=== PATIENT | female | born 1950 | race Caucasian/White ===

== ENCOUNTER 2018-02-19 10:30 | Outpatient (RCR) | payer MEDICARE, BC, SELFPAY ==
--- NOTE | 2018-01-22 13:55 | PTTR_ITS ---
DATE: 01/22/18 SUBJECTIVE: [place] states that going back to work went well, although she was pretty fatigued. She had to cancel Thursday's appointment because she was so tired from working the weekend. States she has been compliant with her HEP. OBJECTIVE: I test her left shoulder, wrist and forearm movements prior to mobilization. Begin with the left shoulder, starting with scapular jiggles, then working on rotation. Her external rotation is tight at 60 to begin with, but with rolling and gliding of the humeral head, etc., I can eventually get her to 90 but she is in the scaption plane. The same is true with internal rotation. Worked on forward elevation, which is not much more than 115 with end range discomfort suprahumerally. I then placed her in prone for rolling and gliding of the humeral head with the arm at a 90 and then hyper extension at +60 . Had her hold this isometrically. Then worked on anti gravity abduction, which she can do at about the 100 angle parallel to the floor, even though it is heavy and challenging, and then forward elevation AA. Had her place her arm on the plinth, and then actively primarily assist so she is at close to 140 to 145 angle. I then had her in the closed pack position for flexion, abduction and external rotation with her hands behind her head while stabilizing the proximal humerus. I then proceed to the forearm, working on forearm supination by mobilizing the distal radial ulnar joint, then pronation and accessory movements of the radial carpal joint while stabilizing the distal radius and stretching into flexion and extension. I upgraded her HEP to include some extension exercises with her hand on the table. I also stretched her IP joints into extension and then composite flexion. Manual therapy: ([id number]). Direct treatment time: 30 minutes Assessment: Doing well. Motion is coming along nicely. Will eventually add some strengthening exercises. Plan: Upgraded her HEP as described above. Also, issued a courtney to start using for her shoulder into abduction and flexion. She has a follow up appointment early next week. Jhonatan Acosta P.Apple. JACQUELINE/yousif
--- NOTE | 2018-01-29 10:18 | PTTR_ITS ---
DATE: 01/29/18 SUBJECTIVE: [place] continues to note improvement in her (L) hand and shoulder function, tolerated work much better last week as she is scheduled to go back again tomorrow. OBJECTIVE: Manual therapy: ([id number]). Active flexion is approximately 135-140* and she has been using her courtney daily. I begin with mobilizing her shoulder in the supine position by stretching the inferior and posterior capsules. I can get close to 90* of ER and IR. Flexion is around 135-140* and she has weakness when performing scapular protraction and retraction as well as circular movements in the supine position with her arm at shoulder at 90*. After mobilizing the supine position I have her perform some antigravity shoulder adduction and then in the side lying position ER and abduction. In the prone position hyperextension, abduction at 100* and then forward elevation. I then assist her with the maneuver and then she requires approximately 145*. I then have her in the loose pack position of flexion abduction and ER with her hands behind her head and have her pinch her blades together while I abducting her shoulder and apply a gentle posterior glide at the glenohumeral joint. I then mobilize her (L ) forearm and wrist and issue her a tennis ball for grasping activities along with upgrading her HEP to include scap stabilization exercises as described above including the lower trap. Direct treatment time: 45 minutes Total treatment time: 45 minutes she finishes the UBE for 5 minutes ASSESSMENT: Doing well, making some steady progress and she is a little over 10 weeks post op now. She still has some weakness lifting the weight of her arm against gravity some heavier movement into all planes to strengthen this more and then eventually we will get this to some resistive exercises. PLAN: Have [place] continue with HEP and upgrade the HEP for additional strengthening exercises and has a follow up early next week.
--- NOTE | 2018-02-02 09:00 | PTTR_ITS ---
DATE: 02/02/18 SUBJECTIVE: [place] states she has been non-compliant with her exercise program on the days that she works such as the weekends and the day after. Partially compliant the other days. OBJECTIVE: I test her movement patterns prior to mobilization. Her active flexion is around 115-120 degrees. I then mobilize her shoulder in supine position into rotation, then forward elevation, PNF 1 & 2 patterns, alternating isotonics, taking mild resistance and then in sidelying position anti-gravity ER , then ab/adduction. In supine position work on hyperextension, she can get well over 60 degrees, then hold it isometrically with mild lag. We also do some active movements in this range, abduction, then forward elevation with her arm resting on the table AA, then holding isometrically at end range. I then put her in close pack position of flexion/abduction,ER and work on scapular retraction as I glide the humeral head posteriorly, along the parallel position of the GH joint. I also have her do some scapular stabilization exercises with scapular retraction and inferior glides to lock in the lower traps. I incorporate this in the standing position for her posture. I then mobilize the distal, radial ulnar joints, the radial carpal joints using muscle energy techniques, light traction, and rolling/gliding of the joint surfaces in an appropriate manner. Manual therapy: ([id number]). Direct treatment time: 45 mins Total treatment time: 80 mins, completes a scap stab program in clinic via wellness A: Doing well. I would like to see her a little more compliant with her HEP. P: Have [place] exercise on a daily basis with her pulleys and anti-gravity strengthening. She has a follow up later in the week. DLW/dl
--- NOTE | 2018-02-05 09:00 | PTTR_ITS ---
DATE: 02/05/18 SUBJECTIVE: [place] states she is a little sore in her wrist and shoulder compared to the other day. She thinks it is result of the PT. She notes that she has still been compliant with her HEP. She is taking Ibuprofen tid OBJECTIVE: Manual therapy: ([id number]). I assess her wrist and forearm movements and she has close to full forearm supination/pronation with end range pain and reproduction of her wrist discomfort, this is not forced. When trying to do a distal radial, ulnar mobilization it is a little sore, so we back off on that. Then go to the wrist and her wrist flexion is at around 45 and with mobilization , I can get close to 60-70 degrees which causes some mild drawing through the dorsal aspect of the wrist. Does not simulate the symptoms that she has been complaining of. When working on her extension, we can get her close to 60-65 degrees, this causes a drawing throughout the volar aspect of the wrist, but again not the same symptoms she has been complaining of. Proceed to the shoulder and start with some scapular jiggles, then work on ER. I can get close to 90 degrees of ER as long as I keep her into scaption plane some so as the humeral head is parallel to the glenoid, then IR same at 90. Forward flexion though starts causing lateral proximal humeral discomfort, at around 110-120 degrees, this is not forced. I have her hold her arm overhead and make circular movements, it is choppy and weak compared to the R. After she performs these, we have her do some protraction, retraction with some light resistance. She handles this without pain. I then have her in sidelying position, she can externally rotate, and at end range she locks in her scapula into retracted position, then abduction and adduction is non-painful, although weak. In prone position, she does some dangling of the arm initially, then we work on stretching the anterior capsule with hyper extension, get close to 50 degrees. I have her try and hold it isometrically. She can only actively extend to around +15-20 degrees. I then work on shoulder abduction at 100 degrees, have her hold it isometrically with arm parallel to the floor. She then places her arm on the table with forehead resting on her R forearm and work on elevating AA , as she gets better at this I have her participate more actively. We finish in the close pack position of flexion'/abduction and ER and when she hits end range, I perform posterolateral glide which gives her some symptomatic relief. We also work on lower traps. She then performs her anti-gravity strengthening exercises in the prone, supine and sidelying position along with tennis ball tap , washing wall over head, etc. . . . to tolerate per flow sheet. Direct treatment time: 45 mins Total treatment time: 75 mins A: Doing well, ROM is coming along nicely. She is sore though from the last session and it is not unusual as she is gaining more motion; but because she has such good range at 11 weeks, I am going to cut her treatments down to once per week rather than 2x a week, give her a little more time to heal, especially now that she has relatively good functional range. P: Have [place] continue with her HEP, avoid heavy lifting, etc. . . Has a follow up in approximately 1 week. DLW/dl
--- NOTE | 2018-02-12 11:00 | PTTR_ITS ---
DATE: 02/12/18 SUBJECTIVE: [place] states she has had a good week. She notes steady gains in her function and pain. Manual therapy: ([id number]). Mobilize her shoulder in supine position starting with ER which eventually got to around 90 degrees, even though she is some limited in scaption plane, then IR and work on forward elevation, then PNF 1 and 2 patterns, alternating isotonics with emphasis on the lift component. I then work on shoulder adduction as she adducts across the midline, I apply some light traction and posterior humeral head glide which gives her some symptomatic relief. She is then able to place her L hand under her arm pit to simulate applying her deodorant, etc. . . which she has been a challenged for her. I then have her in sitting position and work on her forearm supination/ pronation, her pronation is full, supination is lacking about 10-15 degrees with end range drawing throughout the distal ulnar region. I do some rolling and gliding of the distal, radial ulnar joint and with MET's I eventually can get full supination. I then perform some PA glides to the radial carpal joint. She does have some joint play, then I work on her flexion and prolonged stretch, then following into extension, stretch IP joints, not only into extension, but into flexion, she has hypomobility at the DIPs which she states was present prior to her fracture. Direct treatment time: 30 mins Total treatment time: 30 mins and then seen by Saima Arrieta PTA and started on Therex (see her flow sheet). Has a follow up with me next week. She will now start some strengthening with her HEP that was issued to her by Saima Garcia PTA DLW/doyle
--- NOTE | 2018-02-12 13:19 | PTTR_ITS ---
DATE: 02/12/18 OBJECTIVE: Co-treatment with primary therapist, Jhonatan Acosta PT. Please see his note for specifics. Therapeutic procedures ([id number]). * [X] See flow sheet: Patient completed an UE strengthening and scapular stabilization program, as per flow sheet. Patient performed rows, shoulder extension, IR/ER with tubing, bicep curls, tricep kickbacks, and scapular retraction with foam and tubing for ER, followed by UBE cycling. * [X] Provided skilled instruction in proper exercise performance. * [X] Provided skilled manual cues to facilitate proper muscle recruitment and/or movement pattern. Direct treatment time: 20 minutes Total treatment time: 25 minutes
--- NOTE | 2018-02-19 13:41 | PTTR_ITS ---
DATE: 02/19/18 SUBJECTIVE: No new complaints offered. Feels that she is making weekly gains.She is now able to work her regular schedule without being fatigued. She is still careful about lifting and pulling, but is participating more with pt care. OBJECTIVE: Manual therapy: ([id number]).I begin with mobilizing her forearm and then wrist using rolling and gliding techniques to the distal radial ulnar joint with supination and pronation. I can get close to full range when she is mobilized. She has some end range drawing, though, throughout the ulnar aspect of the wrist , and then PA glides to the radial carpal joints, and then stretching into flexion and extension and I can get close to 60 degrees when it is completed. I then proceed to the shoulder and her shoulder flexion is not much more than 120- 30 with scapular substitution. I start with scapular jiggles and then stretch the inferior and posterior capsules and I work on ER and IR. She starts off at around 6 0degrees of ER, but then I can eventually get to 60 with rolling and gliding of the humeral head and METs; same with IR. I perform some PNF 1 and 2 patterns alternating isotonics with light to moderate resistance to tolerance. In the prone position I have her rest her forehead on her R forearm with her L arm resting on the table and work on end range flexion maneuvers, AA initially and then have her hold it isometrically; she has about a 15 degree flexion lag. I then put her in the closed pack position of flexion/abduction and ER and work on active and then AA abduction and ER and have her try to hold it isometrically. She is then seen by Saima Garcia PTA for her therapeutic exercises. We upgraded her home program and issue some tubing for strengthening exercises for elbow flexors and extensors, as well as her shoulder girdle. She has a follow-up appt earlier next week with JORJE Carter. Direct treatment time: 30 min Total treatment time: 30 min RONALDOW/prosper
--- NOTE | 2018-02-19 14:01 | PTTR_ITS ---
DATE: 02/19/18 OBJECTIVE: Co-treatment with primary therapist, Jhonatan Acosta PT. Please see his note for specifics. Therapeutic procedures ([id number]). * [X] HEP review: Patient was issued a HEP for scapular stabilization and shoulder strengthening. HEP was reviewed and performed. Patient was issued orange Theraband tubing for HEP completion. * [X] See flow sheet: Patient completed a scapular stabilization and shoulder strengthening program, as per flow sheet. Patient tolerated a progression in her program, see flow sheet for modifications made to reps, times , and resistance. Patient completed UBE cycling x10 minutes, at no charge. * [X] Provided skilled instruction in proper exercise performance. * [X] Provided skilled manual cues to facilitate proper muscle recruitment and/or movement pattern. Direct treatment time: 20 minutes Total treatment time: 30 minutes
== END 2018-02-19 23:59 | disposition home or self-care (01) ==
LOC: PT 10:30
PROVIDERS: PCP Family Medicine; Referring Provider Orthopaedic Surgery; Visit Provider Orthopaedic Surgery
DX: S42.215D Unspecified nondisplaced fracture of surgical neck of left humerus, subsequent encounter for fracture with routine healing (principal); S52.502D Unspecified fracture of the lower end of left radius, subsequent encounter for closed fracture with routine healing; S52.602D Unspecified fracture of lower end of left ulna, subsequent encounter for closed fracture with routine healing
CPT/HCPCS: 97110; 97140

== ENCOUNTER → 2018-03-02 10:32 | Outpatient (BNVA) | payer MEDICARE, BC, SELFPAY | PROVIDERS: PCP Family Medicine; Visit Provider Orthopaedic Surgery | DX: S42.212D Unspecified displaced fracture of surgical neck of left humerus, subsequent encounter for fracture with routine healing; S52.502D Unspecified fracture of the lower end of left radius, subsequent encounter for closed fracture with routine healing; S52.602D Unspecified fracture of lower end of left ulna, subsequent encounter for closed fracture with routine healing | CPT/HCPCS: 99213 ==

== ENCOUNTER 2018-03-11 00:06 | Outpatient (CLI) | payer MEDICARE, BC, SELFPAY ==
--- NOTE | 2018-03-11 13:31 | DI.MAMMO_ITS ---
SYMPTOMS/DIAGNOSIS: SCREENING, Z12.31 MAMMOGRAMS: Mammograms were interpreted according to the usual protocol including computer analysis with CAD system, tomosynthesis and C view imaging. The breast tissue is heterogeneously radiodense, which lowers the sensitivity of the study. There is no dominant mass. There are no suspicious calcifications and there has been no significant interval change when compared with prior images. SUMMARY: No evidence of malignancy, category 1. Yearly screening mammography is recommended. Breast density category C. MQSA ASSESSMENT OF FINDINGS: Negative. Category 1. Patient will receive a letter notifying them of these results. Bi-RADS category C. The breasts are heterogeneously dense, which may obscure small masses.
== END 2018-03-11 00:26 ==
PROVIDERS: PCP Family Medicine; Visit Provider Family Medicine
DX: Z12.31 Encounter for screening mammogram for malignant neoplasm of breast (principal)
CPT/HCPCS: 77063; 77067

== ENCOUNTER 2019-02-03 12:19 | Outpatient (CLI) | payer MEDICARE, BC, SELFPAY ==
[2019-02-03 14:02] LABS: ALT 22 U/L (12-78); AST 22 U/L (15-37); Albumin 3.9 g/dL (3.4-5.0); Alkaline Phosphatase 80 U/L (46-116); Anion Gap 9.6 mmol/L (3-11); BUN 14 mg/dL (7-18); Bilirubin, Total 0.4 mg/dL (0.2-1.0); CO2 29.4 mmol/L (21.0-32.0); CREATININE 0.88 mg/dL (0.55-1.02); Calcium 8.6 mg/dL (8.5-10.1); Calculated LDL 145 mg/dL; Chloride 103 mmol/L (98-107); Cholesterol 244 mg/dL (50-200); Glucose 100 mg/dL (70-100); HDL Cholesterol 51 mg/dL (40-60); Potassium 4.6 mmol/L (3.5-5.1); Sodium 142 mmol/L (136-145); TSH (W/Ref FT4) 2.43 uIU/mL (0.36-3.74); Total Protein 6.9 g/dL (6.4-8.2); Triglyceride 244 mg/dL (30-150)
[2019-02-03 14:49] LABS: HCT 41.7 % (36.0-46.0); HGB 13.2 g/dL (12.0-15.5); Mean Corp. HGB Concentration 31.7 g/dL (32.0-36.0); Mean Corpuscular Hemoglobin 31.2 pg (27.0-33.0); Mean Corpuscular Volume 98.6 fL (80-95); Mean Platelet Volume 9.5 fL (8.0-11.0); Platelet Count 285 x1000/uL (130-400); RBC 4.23 m/cumm (4.00-5.20); RBC Distribution Width 13.9 % (11.7-14.6); White Blood Cell Count 4.62 k/cumm (4.4-10.8)
== END 2019-02-03 12:39 ==
PROVIDERS: PCP Family Medicine; Visit Provider Family Medicine
DX: E78.2 Mixed hyperlipidemia (principal); E03.9 Hypothyroidism, unspecified
CPT/HCPCS: 36415; 80053; 80061; 83721; 85027; 84443

== ENCOUNTER 2020-03-16 04:02 | Outpatient (CLI) | payer MEDICARE, BC, SELFPAY ==
--- NOTE | 2020-03-16 | DI.MAMMO_ITS ---
EXAM: MAMMO SCREENING CLINICAL HISTORY: SCREENING,Z12.31,FAMILY H/O BREAST CA TECHNIQUE: Mammograms were interpreted according to the usual protocol including computer analysis w [facility] CAD system, tomosynthesis and C-view imaging. COMPARISON: 2010 through 2018 FINDINGS: The breasts are composed of scattered fibroglandular densities, Breast Density category B. No suspicious masses or suspicious microcalcifications are seen. No skin thickening or abnormal axillary lymph nodes are seen. There has been no significant change from prior exams. IMPRESSION: BI-RADS Category 1, Negative mammogram Yearly screening mammography is recommended. Breast Density - Category B, scattered fibroglandular densities. A negative radiographic report should not delay biopsy if a dominant or clinically suspicious mass is present. Up to ten percent of cancers are not identified on mammography. A negative report may reinforce clinical impression. Adenosis and dense breasts may obscure an underlying neoplasm. False positive reports average 6 to 10%. Patient will receive a letter notifying them of these results.
== END 2020-03-16 04:22 ==
PROVIDERS: PCP Family Medicine; Visit Provider Family Medicine
DX: Z12.31 Encounter for screening mammogram for malignant neoplasm of breast (principal); Z80.3 Family history of malignant neoplasm of breast
CPT/HCPCS: 77063; 77067

== ENCOUNTER 2020-05-08 01:50 | Outpatient (CLI) | payer MEDICARE, BC, SELFPAY ==
[2020-05-08 10:28] LABS: Absolute Basophil Count 0.02 10^3/uL (0.0-0.2); Absolute Eosinophil Count 0.27 10^3/uL (0.0-0.7); Absolute Lymphocyte Count 0.96 10^3/uL (1.2-3.4); Absolute Monocyte Count 0.27 10^3/uL (0.1-0.8); Absolute Neutrophil Count 1.32 10^3/uL (1.2-6.7); Basophils % 0.7; Eosinophils % 9.5; HCT 36.2 % (36.0-46.0); HGB 11.6 g/dL (11.2-15.7); Lymphocytes % 33.8; MCH 31.5 pg (27.0-33.0); MCV 98.4 fL (80-95); MPV 8.9 fL (8.0-11.0); Monocytes % 9.5; Neutrophils % 46.5; Nucleated RBC 0 %; Platelet Count 252 10^3/uL (130-400); RBC 3.68 10^6/uL (3.93-5.22); RDW 13.5 % (11.7-14.6); RDW-SD 48.4 fL; WBC 2.84 10^3/uL (4.4-10.8)
[2020-05-08 11:48] LABS: ALT 20 U/L (14-59); AST 17 U/L (15-37); Albumin 3.8 g/dL (3.4-5.0); Alkaline Phosphatase 71 U/L (46-116); Anion Gap 7.3 mmol/L (3-11); BUN 11 mg/dL (7-18); Bilirubin, Total 0.3 mg/dL (0.2-1.0); CO2 29.7 mmol/L (21.0-32.0); Calcium 8.6 mg/dL (8.5-10.1); Calculated LDL 119 mg/dL (<100); Chloride 106 mmol/L (98-107); Cholesterol 231 mg/dL (<200); Glucose 91 mg/dL (74-106); HDL Cholesterol 51 mg/dL (40-60); Potassium 4.3 mmol/L (3.5-5.1); Sodium 143 mmol/L (136-145); TSH 1.54 uIU/mL (0.36-3.74); Total Protein 6.6 g/dL (6.4-8.2); Triglyceride 307 mg/dL (<150); Vitamin B12 907 pg/mL (193-986)
[2020-05-08 12:05] LABS: FREE T4 0.92 ng/dL (0.76-1.46)
== END 2020-05-08 02:10 ==
PROVIDERS: PCP Family Medicine; Visit Provider Family Medicine
DX: E03.9 Hypothyroidism, unspecified (principal); E78.2 Mixed hyperlipidemia; E53.8 Deficiency of other specified B group vitamins
CPT/HCPCS: 36415; 80053; 80061; 82607; 84439; 84443; 85025

== ENCOUNTER 2020-11-16 02:08 | Outpatient (CLI) | payer MEDICARE, BC, SELFPAY ==
[2020-11-16 12:22] LABS: Calculated LDL 186 mg/dL (<100); Cholesterol 291 mg/dL (<200); HDL Cholesterol 63 mg/dL (40-60); Triglyceride 210 mg/dL (<150)
== END 2020-11-16 02:09 | disposition home or self-care (01) ==
LOC: LBO 02:08
PROVIDERS: PCP Family Medicine; Visit Provider Family Medicine
DX: E78.2 Mixed hyperlipidemia (principal)
CPT/HCPCS: 36415; 80061

== ENCOUNTER 2021-03-01 10:09 | Outpatient (REF) | payer MEDICARE, BC, SELFPAY ==
[2021-03-01 15:08] LABS: ALT 24 U/L (14-59); AST 17 U/L (15-37); Albumin 4.2 g/dL (3.4-5.0); Alkaline Phosphatase 83 U/L (46-116); Anion Gap 8.4 mmol/L (3-11); BUN 13 mg/dL (7-18); Bilirubin, Total 0.4 mg/dL (0.2-1.0); CO2 29.6 mmol/L (21.0-32.0); CREATININE 0.9 mg/dL (0.55-1.02); Calcium 9.1 mg/dL (8.5-10.1); Calculated LDL 88 mg/dL (<100); Chloride 105 mmol/L (98-107); Cholesterol 181 mg/dL (<200); Glucose 99 mg/dL (74-106); HDL Cholesterol 67 mg/dL (40-60); Potassium 5.7 mmol/L (3.5-5.1); Sodium 143 mmol/L (136-145); TSH (W/Ref FT4) 1.88 uIU/mL (0.36-3.74); Total Protein 6.9 g/dL (6.4-8.2); Triglyceride 132 mg/dL (<150)
== END 2021-03-01 10:10 | disposition home or self-care (01) ==
LOC: NCHCN 10:09
PROVIDERS: PCP Family Medicine; Visit Provider Family Medicine
DX: E78.2 Mixed hyperlipidemia (principal); E03.9 Hypothyroidism, unspecified; E55.9 Vitamin D deficiency, unspecified; Z00.00 Encounter for general adult medical examination without abnormal findings
CPT/HCPCS: 80053; 80061; 82306; 84443

== ENCOUNTER 2021-04-08 01:59 | Outpatient (CLI) | payer MEDICARE, BC, SELFPAY ==
--- NOTE | 2021-04-08 | DI.MAMMO_ITS ---
Exam(s) MAMMO SCREENING EXAM: MAMMO SCREENING CLINICAL HISTORY: SCREENING, Z12.31. TECHNIQUE: Bilateral full field digital CC and MLO mammographic images were obtained with 3D tomosyn thesis and utilizing computer aided detection (CAD). COMPARISON: Prior mammograms dating back to 2011, the most recent being February 2020. FINDINGS: There has been no significant change in the appearance and distribution of the fibroglandular tissue. No new significant radiographic findings in the right breast. In the left breast on 3D cc imaging there is a 5 x 5 millimeter asymmetric density located 6 cm in fr om the nipple, slightly lateral of center and below the midline. Not seen on prior mammograms. Ther e are no malignant-appearing microcalcification groups in this region or elsewhere in either breast. There is no significant architectural distortion nor skin thickening-retraction. IMPRESSION: No radiographic evidence of malignancy in the right breast. Asymmetric left breast density-possible nodule. Spot compression cc view and possible ultrasound rec ommended. BI-RADS Category 0 - Assessment Incomplete: Need additional imaging evaluation Breast Density - Category B - Scattered areas of fibroglandular density Breast density Category C or D implies that the patient has dense breast tissue. Dense breast tissue can make it harder to find cancer on a mammogram. Dense breast tissue is also associated with an incr eased risk of breast cancer. This information about the result of the mammogram report was provided to the patient to raise their awareness. Use this report when you speak with the patient about their risks for breast cancer, which includes their family history. At that time, you may recommend additional screening tests (Ultrasoun d or MRI) as these tests may add significant information. A negative radiographic report should not delay biopsy if a dominant or clinically suspicious mass is present. Up to ten percent of cancers are not identified on mammography. A negative report may reinforce clinical impression. Adenosis and dense breasts may obscure an underlying neoplasm. False positive reports average 6 to 10%. Patient will receive a letter notifying them of these results.
== END 2021-04-08 02:19 ==
PROVIDERS: PCP Family Medicine; Visit Provider Family Medicine
DX: Z12.31 Encounter for screening mammogram for malignant neoplasm of breast (principal); R92.8 Other abnormal and inconclusive findings on diagnostic imaging of breast
CPT/HCPCS: 77063; 77067

== ENCOUNTER 2021-04-19 00:29 | Outpatient (CLI) | payer MEDICARE, BC, SELFPAY ==
--- NOTE | 2021-04-19 | DI.MAMMO_ITS ---
Exam(s) MG MAMMO SCREEN CALL BACK UNI US BREAST LT LIMITED EXAM: US BREAST LT LIMITED CLINICAL HISTORY: ? LT BREAST NODULE TECHNIQUE: Ultrasound performed using standard protocol. COMPARISON: No exams were available for comparison FINDINGS: Additional mammographic views of the left breast and left breast ultrasound are interpreted in conjun ction. These examinations were obtained to evaluate questionable small breast nodule identified on r ecent mammogram. Additional mammographic views fail to show a discrete mass. Breast ultrasound show s no evidence of mass or cyst. IMPRESSION: No specific evidence of malignancy at this time. Follow-up unilateral left breast mammogram recommen ded in 6 months. BI-RADS Cat 3 - 6 month - Probably Benign Finding: Recommend follow-up imaging in 6 months Breast Density - Category B - Scattered areas of fibroglandular density DATA REPOSITORY:
== END 2021-04-19 00:49 ==
PROVIDERS: PCP Family Medicine; Visit Provider Family Medicine
DX: R92.8 Other abnormal and inconclusive findings on diagnostic imaging of breast (principal)
CPT/HCPCS: 76642; 77063; 77067

== ENCOUNTER 2021-10-18 00:59 | Outpatient (CLI) | payer MEDICARE, BC, SELFPAY ==
--- NOTE | 2021-10-18 | DI.MAMMO_ITS ---
Exam(s) MG MAMMO DIAGNOSTIC UNI EXAM: MG MAMMO DIAGNOSTIC UNI CLINICAL HISTORY: 6 MO F/U, F/U TO [facility]NL MAMMO, R92.8. TECHNIQUE: Craniocaudal and mediolateral oblique Full Field Digital Mammography views of the left br east with Computer Aided Diagnosis followed by Tomosynthesis. COMPARISON: MG MG MAMMOGRAPHY BILATERAL SCREENING from 01/23/2015 MG MG MAMMOGRAPHY BILATERAL SCREENING from 02/28/2016 MG MG MAMMOGRAPHY BILATERAL SCREENING from 03/10/2017 MG MG mammo screening from 03/11/2018 MG MG MAMMO SCREENING from 03/16/2020 MG MG MAMMO SCREENING from 04/08/2021 MG MG MAMMO SCREEN CALL BACK UNI from 04/19/2021 FINDINGS: Mammography/Tomosynthesis: Masses/Architectural Distortion: None seen. Previously noted nodule no longer present. Microcalcifictions: No suspicious pleomorphic-type are seen. Skin Thickening/Nipple Retraction: None. IMPRESSION: 1. No evidence of malignancy is noted. 2. Unless there is more urgent need, follow-up screening mammography is recommended, as per [place] [employer] guidelines. BI-RADS Category 1 - Negative Breast Density - Category B - Scattered areas of fibroglandular density A negative radiographic report should not delay biopsy if a dominant or clinically suspicious mass is present. Up to ten percent of cancers are not identified on mammography. A negative report may reinforce clinical impression. Adenosis and dense breasts may obscure an underlying neoplasm. False positive reports average 6 to 10%. Patient will receive a letter notifying them of these results.
== END 2021-10-18 01:19 ==
PROVIDERS: PCP Family Medicine; Visit Provider Family Medicine
DX: R92.8 Other abnormal and inconclusive findings on diagnostic imaging of breast (principal); N64.59 Other signs and symptoms in breast
CPT/HCPCS: 77061; 77065; G0279

== ENCOUNTER 2021-11-19 07:05 | Emergency (ER) | payer MEDICARE, BC, SELFPAY ==
[2021-11-19 07:09] VITALS: BP 118/65; PULSE 88; RESP 18; TEMP 36.7; O2SAT 93
--- NOTE | 2021-11-19 08:15 | DI.RAD_ITS ---
Exam(s) XR HIP RT COMPLETE AP PELVIS EXAM: XR HIP RT COMPLETE AP PELVIS CLINICAL HISTORY: Fall, Coccyx pain. TECHNIQUE: 2D digital imaging was performed. COMPARISON: No exams were available for comparison FINDINGS: There is no evidence of pelvic nor hip fracture. Mild degenerative changes noted in the right hip. Sacroiliac joints appear unremarkable. No obvious sacral fracture IMPRESSION: No fractures evident. I note that the requisition states that there has been fall with coccyx pain. If clinically indicated dedicated sacral-coccyx views can be performed. DATA REPOSITORY: RADIATION DOSE DELIVERED:
--- NOTE | 2021-11-19 08:22 | ED.GENADUL_ITS ---
Discharge Plan Disposition Patient Disposition: HOME Condition: Stable Discharge Details Clinical Impression: Fall, Lumbago Primary Care Provider: Courtney Pandya ED Provider: Consuelo Mosquera Home Meds and New Rx's Prescriptions: New cyclobenzaprine 10 mg tablet 10 mg PO TID PRN (Reason: muscle spasm) Qty: 7 0RF Continued cyanocobalamin (vitamin B-12) [Vitamin B-12] 1,000 MCG tablet 1,000 mcg PO DAILY acetaminophen [Tylenol Extra Strength] 500 MG tablet 2 tab PO PRN gabapentin 300 MG capsule 3 cap PO QHS magnesium 250 MG tablet 250 mg PO DAILY Label Comments: 11/09/15 Pt states she takes PRN. PG Rx Instructions: H/ simvastatin 10 MG tablet 10 mg PO QPM Qty: 90 levothyroxine 50 MCG tablet 50 mcg PO DAILY Qty: 90 ibuprofen 400 MG tablet 400 mg PO TID aspirin [Aspirin Low Dose] 81 mg tablet,delayed release (DR/EC) 1 tab PO DAILY Label Comments: 1 tablet once a day rosuvastatin 10 mg tablet 10 mg PO DAILY Label Comments: TAKE ONE TABLET BY MOUTH EVERY DAY No Action duloxetine [Cymbalta] 60 MG capsule,delayed release(DR/EC) 50 mg PO DAILY Label Comments: 11/09/15 20 mg daily. Rx Instructions: [facility] SILVER TABLET 1 EACH tablet 1 ea PO DAILY calcium carbonate-vitamin D3 1 EACH tablet 2 tab PO DAILY meloxicam 15 MG tablet 15 mg PO DAILY Qty: 90 Label Comments: 11/09/15 Pt states she no longer takes medication. PG Rx Instructions: for joint pain instead of Ibuprofen clonazepam 1 MG tablet 1 mg PO HS Qty: 30 ergocalciferol (vitamin D2) [Vitamin D2] 50,000 UNIT capsule 50 mcg PO DAILY Qty: 12 tapentadol [Nucynta] 50 MG tablet 1 tab PO QID oxycodone-acetaminophen 1 EACH tablet 1 ea PO Q6H PRN (Reason: Severe Pain) Qty: 12 0RF naloxone [Narcan] 4 MG spray,non-aerosol 4 mg NS DIRECTED Qty: 2 0RF Rx Instructions: One spray (4mg) intranasally into one nostril. Use a new nasal spray for subsequent dose in alternate nostril if needed. May repeat once after initial dose in 2-3 minutes. tramadol 100 mg tablet 400 mg PO DAILY Label Comments: TAKE ONE TABLET BY MOUTH FOUR TIMES A DAY Discharge Instructions Instructions: Low Back Strain (ED), Fall Prevention (ED) Additional Instructions: Rest, ice, elevation. Alternate ice and heat. Be careful taking the muscle relaxers. Follow up with primary care provider in 3-5 days. Return to ED sooner if any worsening or concerns. Increase oral fluids. Please take Tylenol or Ibuprofen with food every 4-6 hours as needed for pain and swelling. X-rays show no acute fractures of your hip and pelvis. Referrals: Courtney Pandya [Primary Care Provider] - 5 days Discharge Data Discharge Date/Time-TO BE ENTERED AT DEPARTURE: 11/19/21 09:38 Medical Decision Making 71-year-old female presents to the ER with a mechanical fall with chief complaint of right lower lumbar pain and right paraspinous tenderness. She reports having difficulty walking since the fall. X-ray pelvis and hip ordered, 5 mg Valium. X-ray right hip pelvis shows no evidence of pelvic or hip fracture there is mild degenerative changes noted in the right hip. Sacroiliac joints appear unremarkable. 2127: Patient reevaluation, discussed home care with patient. She is not having any specific coccyx tenderness with palpation no crepitus. I did discuss the x- ray results with her she verbalized understanding. She is requesting a tablet for the x-ray at home. We will give her some Flexeril discussed strict return instructions. Patient made hemodynamically stable throughout entire stay discussed strict return instructions and follow-up care verbalized understanding. Medical Records Medical records reviewed: Yes I reviewed the patient's medical records. HPI General Mode of arrival: wheelchair . Date/Time Provider Initiated Documentation: 11/19/21 07:36 . Limitations to Documentation: no limitations . Information obtained by: patient, RN notes reviewed and old records reviewed . HPI Narrative: 71-year-old female presents to the ER with a chief complaint of right lower lumbar pain and posterior hip pain after a mechanical fall last night around 10:00. Patient states that she was in the bathroom slipped and fell landing on her bottom. She denies hitting her head no loss of consciousness denies any neck pain. Denies any loss of bowel or bladder control. Denies any radiation of pain. She did take a tramadol, Tylenol this morning with little to no relief. She reports being unable to put any weight on the area since then. She has a past medical history of frequent falls, surgical history includes hysterectomy, bunionectomy, blepharoplasty, high cholesterol, hypothyroidism, depression. She does take a daily aspirin. Related Data Home Medications Medication Instructions Recorded Confirmed Centrum Silver Tablet 1 ea PO DAILY 09/25/12 12/06/15 acetaminophen 500 mg tablet 2 tab PO PRN 09/25/12 11/19/21 (Tylenol Extra Strength) cyanocobalamin (vitamin B-12) 1,000 mcg PO DAILY 09/25/12 11/19/21 1,000 mcg tablet (Vitamin B-12) duloxetine 60 mg capsule,delayed 50 mg PO DAILY 09/25/12 11/19/21 release (Cymbalta) gabapentin 300 mg capsule 3 cap PO QHS 09/25/12 11/19/21 magnesium 250 mg tablet 250 mg PO DAILY 09/25/12 11/15/15 calcium carbonate 600 mg-vitamin 2 tab PO DAILY 09/28/12 11/19/21 D3 5 mcg (200 unit) tablet levothyroxine 50 mcg tablet 50 mcg PO DAILY #90 tab-caps 11/07/14 11/19/21 simvastatin 10 mg tablet 10 mg PO QPM #90 tabs 11/07/14 clonazepam 1 mg tablet 1 mg PO HS #30 tabs 07/09/15 11/19/21 meloxicam 15 mg tablet 15 mg PO DAILY #90 tab-caps 07/09/15 ergocalciferol (vitamin D2) 1,250 50 mcg PO DAILY #12 tab-caps 07/10/15 11/19/21 mcg (50,000 unit) capsule (Vitamin D2) ibuprofen 400 mg tablet 400 mg PO TID 11/09/15 11/19/21 tapentadol 50 mg tablet (Nucynta) 1 tab PO QID 11/09/15 12/06/15 naloxone 4 mg/actuation nasal 4 mg NS DIRECTED #2 sprays 11/18/17 11/19/21 spray (Narcan) oxycodone-acetaminophen 5 mg-325 1 ea PO Q6H PRN Severe Pain ##12 11/18/17 mg tablet aspirin 81 mg tablet,delayed 1 tab PO DAILY 11/19/21 11/19/21 release (Aspirin Low Dose) cyclobenzaprine 10 mg tablet 10 mg PO TID PRN muscle spasm #7 11/19/21 tabs rosuvastatin 10 mg tablet 10 mg PO DAILY 11/19/21 11/19/21 tramadol 100 mg tablet 400 mg PO DAILY 11/19/21 11/19/21 Previous Rx's Medication Instructions Recorded naloxone 4 mg/actuation nasal 4 mg NS DIRECTED #2 sprays 11/18/17 spray (Narcan) oxycodone-acetaminophen 5 mg-325 1 ea PO Q6H PRN Severe Pain ##12 11/18/17 mg tablet cyclobenzaprine 10 mg tablet 10 mg PO TID PRN muscle spasm #7 11/19/21 tabs Allergies Allergy/AdvReac Type Severity Reaction Status Date / Time atorvastatin AdvReac Severe LEG CRAMPS Unverified 11/19/21 07:12 General Stated Complaint: Nk/Back Pain MIO: 4 Review of Systems All systems reviewed & are unremarkable except as noted in HPI and below ENT Ears, Nose, Mouth, and Throat: Denies neck pain Musculoskeletal Musculoskeletal: Reports as per HPI, Reports back pain, Denies deformity, Denies loss of height, Denies neck pain and Reports stiffness PFSH All Active Problems (Updated 11/19/21 @ 09:31 by Consuelo Mosquera) Earache on left (Acute) Fall (Acute) Lumbago (Acute) Surgical History Blepharorrhapy Bunionectomy Hysterectomy, Laproscopic (~1993) Fibroids Family History Mother Personal history of malignant neoplasm Breast Father Essential hypertension Stroke Brother Diabetes Grandfather Stroke Grandfather Personal history of malignant neoplasm Grandmother Personal history of malignant neoplasm Breast Grandmother Personal history of malignant neoplasm Bladder Brother No problems noted. Social History Smoking/Tobacco Use Status: Former Tobacco Use Smoking risk assessment performed?: Yes Alcohol Intake: never Drug use: Occasionally Substance use type: marijuana Do you feel safe at home: Yes Do you feel safe in your relationship?: Yes Exam Narrative Exam Narrative: Constitutional: Alert and oriented x3. Appears stated age. Normal body habitus. Head: Normocephalic, no trauma. Eyes: Pupils PERRL, EOM's intact. Eyelids symmetrical without lesions, discharge, or swelling. Chest: RRR, Normal S1, S2, distal pulses intact. Resp: Lungs clear to auscultation bilaterally, no wheezes, rales, or rhonchi. Abdomen: Soft, non-distended, Normoactive bowel sounds all 4 quads. Musculoskeletal: No midline C-spine, T-spine tenderness she does have some sacral midline tenderness noted and some right-sided paraspinous tenderness with palpation. Iliac crest bilaterally and pelvis appear stable with palpation. Skin: No suspicious rashes or lesions. Capillary refill less than 2 sec. Neurologic: Cranial nerves II-XII intact. Alert and oriented x 3. Motor: No deficits noted. Sensory: Intact bilaterally all 4 extremities. Reflexes: DTR's intact bilaterally.. Hematologic/Lymphatic: No ecchymosis, no lymphadenopathy. Course Vital Signs Vital signs: Vital Signs Temperature 36.7 C 11/19/21 07:09 Pulse 88 11/19/21 07:09 Respiratory Rate 18 11/19/21 07:09 Blood Pressure 118/65 11/19/21 07:09 Pulse Oximetry 93 11/19/21 07:09 Temperature 36.7 C 11/19/21 07:09 Temperature Source Temporal Artery Scan 11/19/21 07:09 Pulse 88 11/19/21 07:09 Respiratory Rate 18 11/19/21 07:09 Respiratory Effort Non-Labored 11/19/21 07:20 Blood Pressure 118/65 11/19/21 07:09 Blood Pressure Position Sitting 11/19/21 07:09 Pulse Oximetry 93 11/19/21 07:09 Oxygen Delivery Method Room Air 11/19/21 07:09 Oxygen Flow Rate 0 11/19/21 07:09
[2021-11-19] MEDS: diazePAM 10 MG/2 ML SYR 5 MG IM (08:30)
[2021-11-19] MEDS: HYDROcodone 5/Acetaminophen 325 TAB PO (09:34)
[2021-11-19 09:38] VITALS: BP 130/78; PULSE 72; RESP 16; TEMP 36.4; O2SAT 91
== END 2021-11-19 09:38 | disposition home or self-care (01) ==
PROVIDERS: Emergency Provider Registered Nurse Emergency; PCP Family Medicine
DX: M54.50 Low back pain, unspecified (principal); S39.82XA Other specified injuries of lower back, initial encounter; W18.39XA Other fall on same level, initial encounter
CPT/HCPCS: 96372; 99284; 73502; 99283; J3360

== ENCOUNTER → 2022-01-24 00:36 | Outpatient (CLI) | payer MEDICARE, BC, SELFPAY ==
--- NOTE | 2022-01-24 | DI.MRI_ITS ---
Exam(s) MR LUMBAR SPINE WO EXAM: MR LUMBAR SPINE WO CLINICAL HISTORY: CHRONIC BACK PAIN M54.9. TECHNIQUE: Multiplanar multisequence MRI of the Lumbar spine was performed. COMPARISON: MR MRI - LUMBAR SPINE WO CONTRAST from 02/07/2015 FINDINGS: Bones: The last intervertebral disc space is designated the L5/S1 level for the numbering purpose of this examination. There is a compression fracture deformity of L1. There is loss of approximately 30 percent of the height of the vertebral body. There is retropulsion into the central spinal canal. There is minimal narrowing of the spinal canal. The AP diameter is 15 mm. The fracture appears lozano bacute. Please correlate with patient's clinical history. Alignment is satisfactory. The signal otis racteristics are unremarkable. Cord: The conus tip ends at the L1 level. It is of normal size and signal intensity. T12-L1: No disc herniations or bulges are present. No central spinal canal or neural foraminal stenos is. L1-2: No disc herniations or bulges are present. No central spinal canal or neural foraminal stenosis . L2-3: No disc herniations or bulges are present. No central spinal canal or neural foraminal stenosis . L3-4: There is a mild diffuse disc bulge. No significant central spinal canal stenosis. Minimal junie rowing of the neural foramen is seen bilaterally. L4-5: Mild degenerative changes are seen at the facets. There is a mild diffuse disc bulge. No sign ificant central spinal canal stenosis is present. There is mild bilateral neural foraminal narrowing . L5-S1: No disc herniations or bulges are present. No central spinal canal or neural foraminal stenosi s. Soft tissues: The visualized SI joints and sacrum are well maintained. The paraspinal soft tissues ar e unremarkable. Visualized abdominal organs: Simple right renal cyst. No follow-up is recommended. IMPRESSION: 1. L1 compression fracture with loss of approximately 30 percent of the height of the vertebral body. This was not present on the examination from 2014. There is mild retropulsion into the spinal paulo l but no significant central spinal canal stenosis results. Please correlate with the patient's clin ical history. 2. Multilevel degenerative changes in the lumbar spine. No significant central spinal canal stenosis is seen. Minimal neural foraminal narrowing is seen at multiple levels as described above. DATA REPOSITORY:
== END ==
PROVIDERS: PCP Family Medicine; Visit Provider Family Medicine
DX: M51.36 Other intervertebral disc degeneration, lumbar region (principal); S32.010A Wedge compression fracture of first lumbar vertebra, initial encounter for closed fracture; X58.XXXA Exposure to other specified factors, initial encounter
CPT/HCPCS: 72148

== ENCOUNTER 2022-03-19 12:48 | Outpatient (REF) | payer MEDICARE, BC, SELFPAY ==
[2022-03-19 15:06] LABS: HCT 42.7 % (36.0-46.0); HGB 13.6 g/dL (11.2-15.7); MCH 31.9 pg (27.0-33.0); MCHC 31.9 % (32.0-36.0); MCV 100 fL (80-95); MPV 9.2 fL (8.0-11.0); Platelet Count 304 10^3/uL (130-400); RBC 4.27 10^6/uL (3.93-5.22); RDW 13.2 % (11.7-14.6); RDW-SD 48.6 fL; WBC 4.21 10^3/uL (4.4-10.8)
[2022-03-19 17:39] LABS: ALT 27 U/L (14-59); AST 26 U/L (15-37); Alkaline Phosphatase 79 U/L (46-116); Anion Gap 7.7 mmol/L (3-11); BUN 11 mg/dL (7-18); Bilirubin, Total 0.3 mg/dL (0.2-1.0); CO2 31.3 mmol/L (21.0-32.0); Calcium 9.4 mg/dL (8.5-10.1); Calculated LDL 95 mg/dL (<100); Chloride 102 mmol/L (98-107); Cholesterol 214 mg/dL (<200); Estimated GFR 60.98 (mL/min/1.73m2); Glucose 112 mg/dL (74-106); HDL Cholesterol 67 mg/dL (40-60); Sodium 141 mmol/L (136-145); TSH (W/Ref FT4) 2.61 uIU/mL (0.36-3.74); Total Protein 7.6 g/dL (6.4-8.2); Triglyceride 263 mg/dL (<150)
[2022-03-19 17:45] LABS: Potassium 6.1 mmol/L (3.5-5.1)
[2022-03-20 05:43] LABS: Vitamin D 25 Total 65.4 ng/mL (30-100)
== END 2022-03-19 12:49 | disposition home or self-care (01) ==
LOC: NCHCN 12:48
PROVIDERS: PCP Family Medicine; Visit Provider Family Medicine
DX: E78.2 Mixed hyperlipidemia (principal); E55.9 Vitamin D deficiency, unspecified; E03.9 Hypothyroidism, unspecified
CPT/HCPCS: 80053; 80061; 82306; 85027; 84443

== ENCOUNTER 2022-03-19 18:51 | Emergency (ER) | payer MEDICARE, BC, SELFPAY ==
--- NOTE | 2022-03-19 18:45 | RT.EKG_ITS ---
APPROVED REPORT Exam: Resting ECG Reason for Exam: hyperkalemia Patient Location: E HR:88 bpm ECG Measurements Heart Rate 88 AXIS HI 170 P 32 QRSd 77 QRS 47 QT 353 T 30 QTc 428 Conclusion Sinus rhythm...normal P axis, V-rate 60- 99 Physician: no peaking of t waves. no stemi
[2022-03-19 18:56] VITALS: BP 147/92; PULSE 95; RESP 18; TEMP 36.9; O2SAT 93
--- NOTE | 2022-03-19 19:02 | ED.GENADUL_ITS ---
Discharge Plan Disposition Patient Disposition: HOME Condition: Good Discharge Details Chief Complaint: Recheck Clinical Impression: Abnormal laboratory test result Primary Care Provider: Courtney Pandya ED Provider: Semaj Cummings Home Meds and New Rx's Prescriptions: No Action cyanocobalamin (vitamin B-12) [Vitamin B-12] 1,000 MCG tablet 1,000 mcg PO DAILY acetaminophen [Tylenol Extra Strength] 500 MG tablet 2 tab PO PRN gabapentin 300 MG capsule 3 cap PO QHS duloxetine [Cymbalta] 60 MG capsule,delayed release(DR/EC) 50 mg PO DAILY Label Comments: 11/09/15 20 mg daily. Rx Instructions: [facility] SILVER TABLET 1 EACH tablet 1 ea PO DAILY calcium carbonate-vitamin D3 1 EACH tablet 2 tab PO DAILY levothyroxine 50 MCG tablet 50 mcg PO DAILY Qty: 90 clonazepam 1 MG tablet 1 mg PO HS Qty: 30 ergocalciferol (vitamin D2) [Vitamin D2] 50,000 UNIT capsule 50 mcg PO DAILY Qty: 12 ibuprofen 400 MG tablet 400 mg PO TID naloxone [Narcan] 4 MG spray,non-aerosol 4 mg NS DIRECTED Qty: 2 0RF Rx Instructions: One spray (4mg) intranasally into one nostril. Use a new nasal spray for subsequent dose in alternate nostril if needed. May repeat once after initial dose in 2-3 minutes. aspirin [Paulino Low Dose Aspirin] 81 mg tablet,delayed release (DR/EC) 1 tab PO DAILY Label Comments: 1 tablet once a day rosuvastatin 10 mg tablet 10 mg PO DAILY Label Comments: TAKE ONE TABLET BY MOUTH EVERY DAY tramadol 100 mg tablet 400 mg PO DAILY Label Comments: TAKE ONE TABLET BY MOUTH FOUR TIMES A DAY Discharge Instructions Additional Instructions: Your potassium is normal. This is been confirmed with EKG and repeat laboratory work-up. Initial error most likely occurred secondary to hemolysis of the specimen. If you notice any worsening of your symptoms, or any new symptoms such as vomiting, diarrhea, fever, chills, shortness of breath, chest pain, numbness, weakness, or fainting , please return immediately to the emergency department for reevaluation. Please follow up with your primary care provider as soon as possible for reassessment and reevaluation. As always, it was a pleasure participating in your medical care today. Referrals: Courtney Pandya [Primary Care Provider] - Medical Decision Making 71-year-old female with a past medical history of hysterectomy, high cholesterol, hypothyroid bradycardia, sciatica, vitamin D deficiency, who presents today for evaluation of an abnormal lab value. She had routine blood work performed today, and was called by her doctor's office stating that she needed to come in for a blood redraw. Unfortunately when she came in the lab was already closed and so she came to the ER for blood repeat draw. Upon review of her labs it appears that her potassium was 6.0. She denies history of new medications, hyperkalemia, her potassium sparing diuretics. She has no complaints whatsoever. She denies numbness, tingling, weakness, syncope or palpitations. She is otherwise asymptomatic. Physical exam is notably unremarkable. No evidence of dehydration or other significant abnormality. Will perform a blood redraw and EKG screening. Monitor closely and reassess. Screening EKG shows no T wave peaking. 8:08 AM EKG is normal, repeat potassium is 3.7, this correlates clinically with her symptomatology, I suspect that her initial potassium was secondary to hemolysis. Patient will be discharged. She feels well. No evidence of acute life- threatening etiology at this time based on clinical exam and laboratory analysis. I have extensively reviewed the treatment plan and discharge instructions with the patient. I have addressed all patient concerns at this time. The patient was made aware of what symptoms to monitor for that would warrant a return to the emergency department. Discussed the plan with the patient, they demonstrate verbal understanding and agreement with our assessment and plan at this time. The documentation in this chart was dictated using [employer] dictation software. Please excuse any dictation errors. HPI General Date/Time Provider Initiated Documentation: 03/19/22 18:54 . HPI Narrative: 71-year-old female with a past medical history of hysterectomy, high cholesterol, hypothyroid bradycardia, sciatica, vitamin D deficiency, who presents today for evaluation of an abnormal lab value. She had routine blood work performed today, and was called by her doctor's office stating that she needed to come in for a blood redraw. Unfortunately when she came in the lab was already closed and so she came to the ER for blood repeat draw. Upon review of her labs it appears that her potassium was 6.0. She denies history of new medications, hyperkalemia, her potassium sparing diuretics. She has no complaints whatsoever. She denies numbness, tingling, weakness, syncope or palpitations. She is otherwise asymptomatic. Related Data Home Medications Medication Instructions Recorded Confirmed Centrum Silver Tablet 1 ea PO DAILY 09/25/12 03/19/22 acetaminophen 500 mg tablet 2 tab PO PRN 09/25/12 03/19/22 (Tylenol Extra Strength) cyanocobalamin (vitamin B-12) 1,000 mcg PO DAILY 09/25/12 03/19/22 1,000 mcg tablet (Vitamin B-12) duloxetine 60 mg capsule,delayed 50 mg PO DAILY 09/25/12 03/19/22 release (Cymbalta) gabapentin 300 mg capsule 3 cap PO QHS 09/25/12 03/19/22 calcium carbonate 600 mg-vitamin 2 tab PO DAILY 09/28/12 03/19/22 D3 5 mcg (200 unit) tablet levothyroxine 50 mcg tablet 50 mcg PO DAILY #90 tab-caps 11/07/14 03/19/22 clonazepam 1 mg tablet 1 mg PO HS #30 tabs 07/09/15 03/19/22 ergocalciferol (vitamin D2) 1,250 50 mcg PO DAILY #12 tab-caps 07/10/15 03/19/22 mcg (50,000 unit) capsule (Vitamin D2) ibuprofen 400 mg tablet 400 mg PO TID 11/09/15 03/19/22 naloxone 4 mg/actuation nasal 4 mg NS DIRECTED #2 sprays 11/18/17 11/19/21 spray (Narcan) aspirin 81 mg tablet,delayed 1 tab PO DAILY 11/19/21 03/19/22 release (Paulino Low Dose Aspirin) rosuvastatin 10 mg tablet 10 mg PO DAILY 11/19/21 03/19/22 tramadol 100 mg tablet 400 mg PO DAILY 11/19/21 03/19/22 Previous Rx's Medication Instructions Recorded naloxone 4 mg/actuation nasal 4 mg NS DIRECTED #2 sprays 11/18/17 spray (Narcan) Allergies Allergy/AdvReac Type Severity Reaction Status Date / Time atorvastatin AdvReac Severe LEG CRAMPS Unverified 03/19/22 19:02 General Stated Complaint: Recheck MIO: 4 Review of Systems All systems reviewed & are unremarkable except as noted in HPI and below PFSH All Active Problems (Updated 03/19/22 @ 20:10 by Semaj Cummings DO) Earache on left (Acute) Abnormal laboratory test result (Acute) Surgical History Blepharorrhapy Bunionectomy Hysterectomy, Laproscopic (~1993) Fibroids Family History Mother Personal history of malignant neoplasm Breast Father Essential hypertension Stroke Brother Diabetes Grandfather Stroke Grandfather Personal history of malignant neoplasm Grandmother Personal history of malignant neoplasm Breast Grandmother Personal history of malignant neoplasm Bladder Brother No problems noted. Social History Smoking/Tobacco Use Status: Former Tobacco Use Smoking risk assessment performed?: Yes Alcohol Intake: never Drug use: Occasionally Substance use type: marijuana Do you feel safe at home: Yes Do you feel safe in your relationship?: Yes Exam Narrative Exam Narrative: 1.Const: Well-nourished, Well-developed, appearing stated age 2.Eyes: PERRL, no conjunctival injection, and symmetrical lids. 3.ENT: Atraumatic external nose and ears. Moist MM. Neck: Symmetric, trachea midline, No thyromegaly. 4.CVS: +S1/S2, No murmurs or gallops. Peripheral pulses 2+ and equal in all extremities. Brisk capillary refill in all extremities. 5.RESP: Unlabored respiratory effort. Clear to auscultation bilaterally. No wheezes rales or rhonchi 6.GI: Soft, Nontender/Nondistended, No hepatosplenomegaly. No guarding or rebound. 7.MSK: Normocephalic/Atraumatic, Extremities w/o deformity or ttp No cyanosis or clubbing, Normal movement of all extremities 8.Skin: Warm, Dry. No rashes or lesions. 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 Sensation grossly intact, no focal neurologic deficits. 10.Psych: (AAO) x3. Appropriate mood and affect Course Vital Signs Vital signs: Vital Signs Temperature 36.9 C 03/19/22 18:56 Pulse 95 H 03/19/22 18:56 Respiratory Rate 18 03/19/22 18:56 Blood Pressure 147/92 H 03/19/22 18:56 Pulse Oximetry 93 03/19/22 18:56 Temperature 36.9 C 03/19/22 18:56 Temperature Source Oral 03/19/22 18:56 Pulse 95 H 03/19/22 18:56 Respiratory Rate 18 03/19/22 18:56 Blood Pressure 147/92 H 03/19/22 18:56 Pulse Oximetry 93 03/19/22 18:56 Pain Level 0 03/19/22 18:56
[2022-03-19 19:54] LABS: Anion Gap 8.5 mmol/L (3-11); BUN 11 mg/dL (7-18); CO2 29.5 mmol/L (21.0-32.0); Calcium 8.8 mg/dL (8.5-10.1); Chloride 100 mmol/L (98-107); Estimated GFR 60.98 (mL/min/1.73m2); Glucose 103 mg/dL (74-106); Potassium 3.7 mmol/L (3.5-5.1); Sodium 138 mmol/L (136-145)
== END 2022-03-19 21:13 | disposition home or self-care (01) ==
PROVIDERS: Emergency Provider Student in an Organized Health Care Education/Training Program; PCP Family Medicine
DX: R79.89 Other specified abnormal findings of blood chemistry (principal); Z87.891 Personal history of nicotine dependence
CPT/HCPCS: 80048; 93005; 99283; 93010; 99282

== ENCOUNTER → 2022-04-25 00:50 | Outpatient (CLI) | payer MEDICARE, BC, SELFPAY ==
--- NOTE | 2022-04-25 | DI.CTLCSR_ITS ---
Exam(s) CT CHEST LUNG CANCER SCREEN EXAM: CT CHEST LUNG CANCER SCREEN CLINICAL HISTORY: SCREENING FOR LUNG CA, FORMER SMOKER, [id number]. TECHNIQUE: Imaging Protocol: Low Dose Technique CONTRAST MATERIAL: None COMPARISON: MR MRI - LUMBAR SPINE WO CONTRAST from 10/04/2013 MR MRI - LUMBAR SPINE WO CONTRAST from 02/07/2015 CR LEFT SHOULDER COMPLETE from 11/18/2017 FINDINGS: CHEST: LUNGS: There is a 2 millimeter pleural base nodule in the lateral aspect of superior segment of the l eft lower lobe. Benign-appearing increased markings are noted in the lingular segment of the left karmen ng. No pleural effusions.. In the opposite-right lung mild increased markings are noted in the post erior basal segment right lower lobe, also without pleural effusion. There is a pleural-based 4 x 2 millimeter nodule in the lateral basal segment right lower lobe. There is also a 4 millimeter noncal cified nodule anterior in the right middle lobe within the lateral segment. There are no significant focal findings in trachea and mainstem bronchi. Accessory azygos lobe on the right side incidentall y noted. MEDIASTINUM: There is no obvious hilar nor mediastinal adenopathy. CARDIAC: Heart size is normal. There is no pericardial effusion.Caliber of the thoracic aorta is wit hin normal limits. OTHER: OSSEOUS: Benign intraosseous hemangioma is noted in the right-side of a midthoracic vertebra. There is compression fracture of what is probably T12, not previously present on MRI scan of January 2015 an d age indeterminate. IMPRESSION: 1. Benign-appearing lung nodules as described individually above. No pleural effusions nor intrathor acic adenopathy. 2. There is compression fracture of what is probably T12, not evident on prior MRI of 2014. 3. Lung RADS Cat 2 - Benign Appearance / Behavior: Nodules with a very low likelihood of becoming a c linically active cancer due to size or lack of growth Lung-RADS 1.0 CATEGORIES: Category 0 - Prior chest CT exam(s) being located for comparison. Category 1 - Annual screening in 12 months. No nodules or definitely benign nodules. Category 2 - Annual screening in 12 months. Benign appearance. Nodules with low likelihood of becomin g active cancer. Category 3 - 6-month follow-up. Probably benign. Short-term follow-up suggested. Nodules with low lik elihood of becoming active cancer. Category 4A - 3-month follow-up and CT/PET if >8 mm in size. Suspicious finding. Findings which requi re additional testing. Category 4B - Findings which require additional testing and tissue sampling. Category 4X - Category 3 or 4 nodules with additional features or imaging findings that increases the suspicion of malignancy. Modifier S- Potentially clinically significant findings (non lung cancer) RADIATION DOSE DELIVERED: 73.38mGy.cm Total DLP !Error 1.84mGyCTDIvol DATA REPOSITORY: All CT scans at this facility are submitted to the National Radiology Data Registry (NRDR) Dose Index Registry (DIR) with the [employer] ([employer]). RADIATION OPTIMIZATION: All CT scans at this facility use at least one of these dose optimization te chniques: automated exposure control; mA and/or kV adjustment per patient size (includes targeted exa ms where dose is matched to clinical indication); or iterative reconstruction.
== END ==
PROVIDERS: PCP Family Medicine; Visit Provider Family Medicine
DX: Z87.891 Personal history of nicotine dependence (principal); Z12.2 Encounter for screening for malignant neoplasm of respiratory organs; R92.8 Other abnormal and inconclusive findings on diagnostic imaging of breast
CPT/HCPCS: 71271

== ENCOUNTER 2022-08-22 16:49 | Outpatient (REF) | payer MEDICARE, BC, SELFPAY ==
[2022-08-22 21:10] LABS: ALT 36 U/L (14-59); AST 41 U/L (15-37); Albumin 3.9 g/dL (3.4-5.0); Alkaline Phosphatase 104 U/L (46-116); Anion Gap 9.1 mmol/L (3-11); BUN 9 mg/dL (7-18); Bilirubin, Total 0.3 mg/dL (0.2-1.0); CO2 28.9 mmol/L (21.0-32.0); CREATININE 0.9 mg/dL (0.55-1.02); Calcium 9.4 mg/dL (8.5-10.1); Calculated LDL 103 mg/dL (<100); Chloride 102 mmol/L (98-107); Cholesterol 217 mg/dL (<200); Estimated GFR 68.77 (mL/min/1.73m2); Glucose 113 mg/dL (74-106); HDL Cholesterol 78 mg/dL (40-60); Potassium 4.5 mmol/L (3.5-5.1); Sodium 140 mmol/L (136-145); Total Protein 6.7 g/dL (6.4-8.2); Triglyceride 184 mg/dL (<150)
== END 2022-08-22 16:50 | disposition home or self-care (01) ==
LOC: NCHCN 16:49
PROVIDERS: PCP Family Medicine; Visit Provider Family Medicine
DX: E78.2 Mixed hyperlipidemia (principal)
CPT/HCPCS: 80053; 80061

== ENCOUNTER 2022-12-03 15:24 | Outpatient (REF) | payer MEDICARE, BC, SELFPAY ==
[2022-12-03 21:33] LABS: HCT 39.3 % (36.0-46.0); HGB 12.7 g/dL (11.2-15.7); MCH 32.2 pg (27.0-33.0); MCHC 32.3 % (32.0-36.0); MCV 100 fL (80-95); MPV 9.2 fL (8.0-11.0); Platelet Count 275 10^3/uL (130-400); RBC 3.95 10^6/uL (3.93-5.22); RDW 13.2 % (11.7-14.6); RDW-SD 48.1 fL; WBC 5.12 10^3/uL (4.4-10.8)
[2022-12-03 22:10] LABS: ALT 39 U/L (14-59); AST 45 U/L (15-37); Albumin 3.9 g/dL (3.4-5.0); Alkaline Phosphatase 80 U/L (46-116); Anion Gap 6.3 mmol/L (3-11); BUN 14 mg/dL (7-18); Bilirubin, Total 0.4 mg/dL (0.2-1.0); CO2 28.7 mmol/L (21.0-32.0); CREATININE 0.9 mg/dL (0.55-1.02); Calcium 8.9 mg/dL (8.5-10.1); Calculated LDL 127 mg/dL (<100); Chloride 104 mmol/L (98-107); Cholesterol 228 mg/dL (<200); Estimated GFR 68.77 (mL/min/1.73m2); Glucose 114 mg/dL (74-106); HDL Cholesterol 66 mg/dL (40-60); Potassium 4.5 mmol/L (3.5-5.1); Sodium 139 mmol/L (136-145); TSH (W/Ref FT4) 3.29 uIU/mL (0.36-3.74); Total Protein 7.2 g/dL (6.4-8.2); Triglyceride 176 mg/dL (<150)
[2022-12-03 22:26] LABS: Vitamin D 25 Total 74.5 ng/mL (30-100)
== END 2022-12-03 15:25 | disposition home or self-care (01) ==
LOC: NCHCN 15:24
PROVIDERS: PCP Family Medicine; Visit Provider Family Medicine
DX: E78.2 Mixed hyperlipidemia (principal); E55.9 Vitamin D deficiency, unspecified; G45.9 Transient cerebral ischemic attack, unspecified
CPT/HCPCS: 80053; 80061; 82306; 85027; 84443

== ENCOUNTER 2022-12-16 01:29 | Outpatient (CLI) | payer MEDICARE, BC, SELFPAY ==
--- NOTE | 2022-12-16 15:07 | DI.MAMMO_ITS ---
Exam(s) MAMMO SCREENING EXAM: MAMMO SCREENING CLINICAL HISTORY: SCREENING, Z12.31 TECHNIQUE: Bilateral full field digital CC and MLO mammographic images were obtained with 3D tomosyn thesis and utilizing computer aided detection (CAD). COMPARISON: Available for comparison. FINDINGS: Masses/Architectural Distortion: None seen. Microcalcifications: No suspicious pleomorphic-type are seen. Skin Thickening/Nipple Retraction: None. IMPRESSION: 1. No significant interval change with no specific features of malignancy noted. 2. Unless there is more urgent need, screening mammography is recommended, as per [employer] guidelines. Category: Density: Breast density category C or D implies that the patient has dense breast tissue. Dense breast tissue is very common and is not abnormal but dense breast tissue can make it harder to find cancer on a ma mmogram. Also, dense breast tissue may increase their breast cancer risk. This information about the result of the mammogram report was provided to the patient to raise their awareness. Use this report when you speak with the patient about their risks for breast cancer, which includes their family hist ory. At that time, you may recommend for more screening tests (Ultrasound or MRI) as they might be us eful based on their risk. A negative radiographic report should not delay biopsy if a dominant or clinically suspicious mass is present. Up to ten percent of cancers are not identified on mammography. A negative report may reinforce clinical impression. Adenosis and dense breasts may obscure an underlying neoplasm. False positive reports average 6 to 10%. Patient will receive a letter notifying them of these results.
== END 2022-12-16 01:49 ==
LOC: DI 01:30
PROVIDERS: PCP Family Medicine; Visit Provider Family Medicine
DX: Z12.31 Encounter for screening mammogram for malignant neoplasm of breast (principal)
CPT/HCPCS: 77063; 77067

== ENCOUNTER 2023-01-27 03:10 | Outpatient (CLI) | payer MEDICARE, BC, SELFPAY ==
--- NOTE | 2023-01-27 | DI.DEXA_ITS ---
Exam(s) XR DEXA BONE DENSITY W/WO DESMOND EXAM: XR DEXA BONE DENSITY W/WO DESMOND CLINICAL HISTORY: MENOPAUSAL SCREENING, Z78.0 TECHNIQUE: Realeyes Horizon C densitometer analysis of left hip, lumbar spine and left forearm. Lat eral survey image of the thoracic and lumbar spine. COMPARISON: MR MR LUMBAR SPINE WO from 01/24/2022 DEXA scans 2004, 2007 and 2013 FINDINGS: Lateral view of the thoracic and lumbar spine shows a moderate compression fracture of L1 which was s een on prior lumbar spine MRI. No additional fractures identified. Bone mineral density measurements of the lumbar spine correspond to a total T-score of -2.0, in the osteopenic range. This represents a 5 percent increase when compared with the prior exam. Bone mineral density measurements of the left hip correspond to a total T-score of -2.2. The femora l neck T-score is -2.8, in the osteoporotic range. This represents a 4.1 percent decrease compared with 2013 and 4.6 percent decrease when compared with 2004.. Theright forearm bone mineral density measurements correspond to a T-score of the distal 3rd of -2.3 . The right forearm was scanned due to history of fracture of the left forearm. IMPRESSION: Osteopenia of the spine and forearm. Osteoporosis of the left hip.
== END 2023-01-27 03:30 ==
LOC: DI 03:10
PROVIDERS: PCP Family Medicine; Visit Provider Family Medicine
DX: Z78.0 Asymptomatic menopausal state (principal); Z13.820 Encounter for screening for osteoporosis; M81.0 Age-related osteoporosis without current pathological fracture
CPT/HCPCS: 77080

== ENCOUNTER → 2023-04-28 00:34 | Outpatient (CLI) | payer MEDICARE, BC, SELFPAY ==
--- NOTE | 2023-04-28 | DI.CT_ITS ---
Exam(s) CT CHEST WO EXAM: CT CHEST WO CLINICAL HISTORY: MULTIPLE NODULES OF LUNG, R91.8. TECHNIQUE: Multi planar reconstructions were performed. 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 Previously described 2-3 millimeter pleu ral base nodule in the lateral aspect of the superior segment of the left lower lobe is unchanged. P reviously described small benign-appearing right lung nodules also unchanged. Increased markings in the right lower lobe posterior basal segment of slightly increased but remains benign appearance. Be nign calcified granuloma in the left lower lobe is again noted. There are no new confluent infiltrat es and there are no pleural effusions. There are no new significant focal findings in the trachea an d mainstem bronchi. MEDIASTINUM: There is no obvious hilar nor mediastinal adenopathy. No obvious axillary adenopathy CARDIAC: Heart size is normal. There is no pericardial effusion.Caliber of the thoracic aorta is wit hin normal limits. VISUALIZED UPPER ABDOMEN:Adrenal masses. No splenomegaly. OSSEOUS: No significant new osseous lesions.Previously described compression fracture of T12 is again noted, unchanged. No new compression fractures evident.. IMPRESSION: 1. Relatively stable appearance of the lung taveras with respect to small benign-appearing nodular den sities when compared to the CT scan of the 1 year ago (04/25/2022). 2. There mildly increased markings in the right lower lobe which have benign appearance. There are n o pleural effusions 3. No intrathoracic adenopathy. Stable appearing T12 compression fracture. RADIATION DOSE DELIVERED: Total DLP DATA REPOSITORY: All CT scans at this facility are submitted to the National Radiology Data Registry (NRDR) Dose Index Registry (DIR) with the [employer] ([employer]). RADIATION OPTIMIZATION: All CT scans at this facility use at least one of these dose optimization te chniques: automated exposure control; mA and/or kV adjustment per patient size (includes targeted exa ms where dose is matched to clinical indication); or iterative reconstruction.
== END ==
PROVIDERS: PCP Family Medicine; Visit Provider Family Medicine
DX: R91.8 Other nonspecific abnormal finding of lung field (principal)
CPT/HCPCS: 71250

== ENCOUNTER 2023-08-25 15:40 | Outpatient (REF) | payer MEDICARE, BC, SELFPAY ==
[2023-08-25 21:10] LABS: Anion Gap 6.6 mmol/L (3-11); BUN 11 mg/dL (7-18); CO2 33.4 mmol/L (21.0-32.0); CREATININE 0.9 mg/dL (0.55-1.02); Calcium 9.6 mg/dL (8.5-10.1); Chloride 100 mmol/L (98-107); Estimated GFR 68.35 (mL/min/1.73m2); Glucose 109 mg/dL (74-106); Potassium 4.6 mmol/L (3.5-5.1); Sodium 140 mmol/L (136-145)
== END 2023-08-25 15:41 | disposition home or self-care (01) ==
LOC: NCHCN 15:40
PROVIDERS: PCP Family Medicine; Visit Provider Family Medicine
DX: I10 Essential (primary) hypertension (principal)
CPT/HCPCS: 80048

== ENCOUNTER 2024-02-04 12:40 | Emergency (ER) | payer MEDICARE, BC, SELFPAY ==
[2024-02-04 12:47] VITALS: BP 136/84; PULSE 83; RESP 14; TEMP 36.2; O2SAT 95
--- NOTE | 2024-02-04 13:03 | ED.GENADUL_ITS ---
Discharge Plan Disposition Patient Disposition: Home Condition: Stable Discharge Details Clinical Impression: Vomiting Primary Care Provider: Courtney Pandya ED Provider: Semaj Flowers Home Meds and New Rx's Prescriptions: Continued cyanocobalamin (vitamin B-12) [Vitamin B-12] 1,000 MCG tablet 1,000 mcg PO DAILY acetaminophen [Tylenol Extra Strength] 500 MG tablet 2 tab PO PRN gabapentin 300 MG capsule 3 cap PO DAILY CENTRUM SILVER TABLET 1 EACH tablet 1 ea PO DAILY calcium carbonate-vitamin D3 1 EACH tablet 2 tab PO DAILY levothyroxine 50 MCG tablet 50 mcg PO DAILY Qty: 90 clonazepam 1 MG tablet 1 mg PO HS Qty: 30 ergocalciferol (vitamin D2) [Vitamin D2] 50,000 UNIT capsule 50 mcg PO DAILY Qty: 12 ibuprofen 400 MG tablet 400 mg PO TID PRN naloxone [Narcan] 4 MG spray,non-aerosol 4 mg NS DIRECTED Qty: 2 0RF Rx Instructions: One spray (4mg) intranasally into one nostril. Use a new nasal spray for subsequent dose in alternate nostril if needed. May repeat once after initial dose in 2-3 minutes. aspirin [Paulino Low Dose Aspirin] 81 mg tablet,delayed release (DR/EC) 1 tab PO DAILY Patient Comments: 1 tablet once a day rosuvastatin 10 mg tablet 10 mg PO DAILY Patient Comments: TAKE ONE TABLET BY MOUTH EVERY DAY hydrochlorothiazide 12.5 mg tablet 12.5 mg PO DAILY Patient Comments: TAKE ONE TABLET BY MOUTH EVERY MORNING oxycodone 5 mg tablet 5 mg PO QID Patient Comments: TAKE ONE TABLET BY MOUTH FOUR TIMES A DAY DIRECTED duloxetine 20 mg capsule,delayed release(DR/EC) 20 mg PO DAILY Patient Comments: TAKE ONE CAPSULE BY MOUTH EVERY DAY Discharge Instructions Instructions: Ondansetron, Nausea and Vomiting, Adult ED Additional Instructions: You were seen in the emergency department for your nausea and vomiting last night, we gave you some IV fluids here and 1 dose of Zofran and your IV, you have a very reassuring abdominal exam with no tenderness and your labs show no concern for serious infection, perforated abdominal organ or sepsis. I think with this reassuring lab workup and your benign exam it is reasonable to trial antiemetic tablets of ondansetron or Zofran at home, they dissolve under your tongue please take them 20 to 30 minutes before attempting any p.o. intake, if you develop worsening abdominal pain especially with fever or intractable nausea and vomiting please do return to the emergency department for possible further imaging and workup. Referrals: Courtney Pandya [Primary Care Provider] - [facility] General Date/Time Provider Initiated Documentation: 02/04/24 13:03 . HPI Narrative: 73 year-old female presents to ED today by POV/ambulating with a chief complaint of nausea/vomiting with onset last night around 2300. Quality described as no abdominal pain, just some vomiting, no radiation to fever, abdominal pain, intractable nausea/vomiting, diarrhea, cough. Severity is described as mild to moderate. Palliating factors include nothing specific attempted. Provoking factors include nothing specific- was not associated with food at dinnertime. Patient not anticoagulated. Related Data Home Medications ?Medication ?Instructions ?Recorded ?Confirmed Centrum Silver Tablet 1 ea PO DAILY 09/25/12 02/04/24 acetaminophen 500 mg tablet 2 tab PO PRN 09/25/12 02/04/24 (Tylenol Extra Strength) cyanocobalamin (vitamin B-12) 1,000 mcg PO DAILY 09/25/12 02/04/24 1,000 mcg tablet (Vitamin B-12) gabapentin 300 mg capsule 3 cap PO DAILY 09/25/12 02/04/24 calcium carbonate 600 mg-vitamin 2 tab PO DAILY 09/28/12 02/04/24 D3 5 mcg (200 unit) tablet levothyroxine 50 mcg tablet 50 mcg PO DAILY #90 tab-caps 11/07/14 02/04/24 clonazepam 1 mg tablet 1 mg PO HS #30 tabs 07/09/15 02/04/24 ergocalciferol (vitamin D2) 1,250 50 mcg PO DAILY #12 tab-caps 07/10/15 02/04/24 mcg (50,000 unit) capsule (Vitamin D2) ibuprofen 400 mg tablet 400 mg PO TID PRN 11/09/15 02/04/24 naloxone 4 mg/actuation nasal 4 mg NS DIRECTED #2 sprays 11/18/17 02/04/24 spray (Narcan) aspirin 81 mg tablet,delayed 1 tab PO DAILY 11/19/21 02/04/24 release (Paulino Low Dose Aspirin) rosuvastatin 10 mg tablet 10 mg PO DAILY 11/19/21 02/04/24 duloxetine 20 mg capsule,delayed 20 mg PO DAILY 02/04/24 02/04/24 release hydrochlorothiazide 12.5 mg tablet 12.5 mg PO DAILY 02/04/24 02/04/24 oxycodone 5 mg tablet 5 mg PO QID 02/04/24 02/04/24 Previous Rx's ?Medication ?Instructions ?Recorded naloxone 4 mg/actuation nasal 4 mg NS DIRECTED #2 sprays 11/18/17 spray (Narcan) Allergies Allergy/AdvReac Type Severity Reaction Status Date / Time atorvastatin AdvReac Severe LEG CRAMPS Unverified 02/04/24 14:22 General Stated Complaint: Nausea/Vomit/Diar MIO: 3 Review of Systems All systems reviewed & are unremarkable except as noted in HPI and below Exam Narrative Exam Narrative: GENERAL APPEARANCE: Well-nourished, non-toxic, awake and alert, atraumatic, no acute distress. SKIN: Warm, pink, dry, intact, without rashes/lesions/ulcerations. HEAD: Normocephalic, atraumatic, normal hair distribution for gender/age. EYES: Normal conjunctiva, no exudates on lids/lashes. ENT: Nares patent, no circumoral cyanosis, no facial swelling NECK: Supple, trachea midline, painless cervical ROM. LUNGS/CHEST: Lungs CTA bilaterally, non-labored respirations, normal A/P diameter, symmetrical expansion, no chest wall deformity HEART (CV/PV): Regular rate and rhythm without murmur, no peripheral edema, no JVD. ABDOMEN: Soft, non-distended, no guarding. MSK: Normal ROM, no swelling/deformity to bilateral UEs or LEs, moving all extremities without weakness, no cyanosis, spine midline without tenderness, normal curvature. NEURO: Mental Status AAOx4 - alert to person, place, time, events No facial droop, no forehead involvement. Motor: No focal weakness - strength 5/5 in bilateral UEs and LEs, proximal and distal, symmetric. Sensory: sensation intact to light touch globally. Gait normal: patient ambulated without ataxia into ED room. PSYCH: euthymic, cooperative, pleasant, appropriate speech Course Vital Signs Vital signs: Vital Signs Temperature 36.2 C L 02/04/24 12:47 Pulse 83 02/04/24 12:47 Respiratory Rate 14 02/04/24 12:47 Blood Pressure 136/84 08/15/24 12:47 Pulse Oximetry 95 02/04/24 12:47 Temperature 36.2 C L 02/04/24 12:47 Temperature Source Skin 02/04/24 12:47 Pulse 83 02/04/24 12:47 Respiratory Rate 14 02/04/24 12:47 Blood Pressure 136/84 02/04/24 12:47 Blood Pressure Position Sitting 02/04/24 12:47 Pulse Oximetry 95 02/04/24 12:47 Oxygen Delivery Method Room Air 02/04/24 12:47 Oxygen Flow Rate 0 02/04/24 12:47 Pain Level 5 02/04/24 12:47 Comment denies otc relief for symptoms 02/04/24 12:47 Medical Decision Making This dictation utilizes [id number] dictation software and may contain unedited grammatical errors. 73 year-old female presents to ED today by POV/ambulating with a chief complaint of nausea/vomiting with onset last night around 2300. Quality described as no abdominal pain, just some vomiting, no radiation to fever, abdominal pain, intractable nausea/vomiting, diarrhea, cough. Severity is described as mild to moderate. Palliating factors include nothing specific attempted. Provoking factors include nothing specific- was not associated with food at dinnertime. Patients' medical history: GERD. Family and social history: noncontributory. Pertinent exam findings / vital signs include benign abdomen, benign cardiopulmonary status, nontoxic vitals. Differential / pathologies of concern include gastroenteritis, unlikely cholecystitis or choledocholithiasis or other emergent biliary tree pathology, unlikely SBO. Diagnostic studies of: -CBC, CMP, Lactate, Lipase, Procalcitonin. -CBC shows no acute abnormality save for mildly low lymphocytes -CMP shows mildly low sodium, mildly low chloride, otherwise noncontributory -Lipase negative -Lactate and procalcitonin negative -Urine shows proteinuria and ketonuria with trace blood and small bilirubin, small leuk esterase with 5-10 WBCs will await culture Interventions of: -1L IVF LR, 4mg IV Zofran. ED Course/Assessment/Plan: 73-year-old female presents with nausea vomiting since last night, has no abdominal tenderness whatsoever, improved with 1 dose of Zofran and IV fluids, labs are reassuring for no acute intra-abdominal emergency, no tenderness warranting CT scan at this time, patient is on board with a trial of Zofran at home for possible mild viral gastroenteritis, will return to the ED for any worsening abdominal pain especially fever, intractable nausea or vomiting. Findings not consistent with acute emergent abdominal pathology, sepsis, electrolyte abnormality warranting intervention. Disposition of vomiting. Patient verbalized understanding of the plan and return to ED criteria and engaged in shared decision making. Medical Records Medical records reviewed: Yes I reviewed the patient's medical records. Lab Data Lab results reviewed: Yes I reviewed the patient's lab results. Labs: Laboratory Tests Range/Units 02/04/24 02/04/24 02/04/24 13:30 13:30 14:06 WBC (4.4-10.8) 10^3/uL 5.59 RBC (3.93-5.22) 10^6/uL 4.01 Hgb (11.2-15.7) g/dL 12.9 Hct (36.0-46.0) % 38.4 MCV (80-95) fL 96 H MCH (27.0-33.0) pg 32.2 MCHC (32.0-36.0) % 33.6 RDW (11.7-14.6) % 12.7 Plt Count (130-400) 10^3/uL 239 MPV (8.0-11.0) fL 8.4 Immature Gran % % 0.4 Neutrophils % % 78.7 Lymphocytes % % 12.5 Monocytes % % 8.2 Eosinophils % % 0.0 Basophils % % 0.2 Nucleated RBC % (0.0-0.3) % 0.0 Absolute Neutrophils (1.2-6.7) 10^3/uL 4.40 Absolute Lymphocytes (1.2-3.4) 10^3/uL 0.70 L Absolute Monocytes (0.1-0.8) 10^3/uL 0.46 Absolute Eosinophils (0.0-0.7) 10^3/uL 0.00 Absolute Basophils (0.0-0.2) 10^3/uL 0.01 VBG Lactate (0.9-1.7) mmol/L 1.1 Cancelled Sodium (136-145) mmol/L 134 L Potassium (3.5-5.1) mmol/L 3.8 Chloride (98-107) mmol/L 92 L Carbon Dioxide (21.0-32.0) mmol/L 31.5 Anion Gap (3-11) mmol/L 10.5 BUN (7-18) mg/dL 9 Creatinine (0.55-1.02) mg/dL 0.7 Est GFR (CKD-EPI 2020) (mL/min/1.73m2) 92.41 Glucose (74-106) mg/dL 129 H Calcium (8.5-10.1) mg/dL 9.8 Magnesium (1.8-2.4) mg/dL 2.0 Total Bilirubin (0.2-1.0) mg/dL 0.48 AST (15-37) U/L 27 ALT (14-59) U/L 32 Alkaline Phosphatase (46-116) U/L 85 Total Protein (6.4-8.2) g/dL 7.7 Albumin (3.4-5.0) g/dL 4.2 Lipase (16-77) U/L 16 Procalcitonin ng/mL < 0.1 Urine Color (Yellow) Yellow Urine Clarity (Clear) Clear Urine pH (5-8) 8.5 H Ur Specific [place] (1.005-1.025) 1.015 Urine Protein (Neg-Trace) mg/dL 30 H Urine Ketones (Negative) mg/dL >=160 H Urine Blood (Negative) Trace-intact H Urine Nitrite (Negative) Negative Urine Bilirubin (Negative) Small H Urine Urobilinogen (Up to 0.2) mg/dL 0.2 Ur Leukocyte Esterase (Negative) Small H Urine RBC (0-2) HPF 0-2 Urine WBC (0-5) HPF 5-10 Ur Epithelial Cells (Negative) HPF Few Urine Crystals (Negative) HPF Negative Urine Bacteria (Negative) HPF Rare Urine Casts (Negative) LPF 0-2 Hyaline Urine Mucus (Negative) Negative Ur Culture Indicated? No Urine Glucose (Negative) mg/dL Negative Quality:SDOH Health Related Social Needs: No Data to Display PFSH All Active Problems (Updated 02/04/24 @ 14:57 by JOSE Doty) Vomiting (Acute) Earache on left (Acute) Surgical History Blepharorrhapy Bunionectomy Hysterectomy, Laproscopic (~1993) Fibroids Family History Mother Personal history of malignant neoplasm Breast Father Essential hypertension Stroke Brother Diabetes Grandfather Stroke Grandfather Personal history of malignant neoplasm Grandmother Personal history of malignant neoplasm Breast Grandmother Personal history of malignant neoplasm Bladder Brother No problems noted. Social History Smoking/Tobacco Use Status: Former Tobacco Use Smoking risk assessment performed?: Yes Alcohol Intake: current Alcohol Intake frequency: a few times a month Alcohol type: wine Drug use: Occasionally Substance use type: marijuana Housing: house Do you feel safe at home: Yes Do you feel safe in your relationship?: Yes
[2024-02-04] MEDS: Lactated Ringers 1,000 ML 1000 ML IV (13:34)
[2024-02-04] MEDS: Ondansetron 4 MG/2 ML VIAL IVP (13:35)
[2024-02-04 13:41] LABS: Abs Immature Grans 0.02 10^3/uL (0.0-0.06); Absolute Basophil Count 0.01 10^3/uL (0.0-0.2); Absolute Monocyte Count 0.46 10^3/uL (0.1-0.8); Basophils % 0.2 %; HCT 38.4 % (36.0-46.0); HGB 12.9 g/dL (11.2-15.7); Immature Grans % 0.4 %; Lymphocytes % 12.5 %; MCH 32.2 pg (27.0-33.0); MCHC 33.6 % (32.0-36.0); MCV 96 fL (80-95); MPV 8.4 fL (8.0-11.0); Monocytes % 8.2 %; Neutrophils % 78.7 %; Platelet Count 239 10^3/uL (130-400); RBC 4.01 10^6/uL (3.93-5.22); RDW 12.7 % (11.7-14.6); RDW-SD 44.5 fL; WBC 5.59 10^3/uL (4.4-10.8)
[2024-02-04 13:43] LABS: Lactate 1.1 mmol/L (0.9-1.7)
--- OUTSIDE RECORDS SUMMARY | 2024-02-04 13:57 | XMS_ITS | Encounter Summary ---
Author Organization [facility] Address [address] [place] [address] Care Team Providers Care Internal Control Consultant Name Role Phone Agustina Gold MD Primary Care Provider [phone] Encounter Details Date Type Department Care Team (Late st Contact Info) Description 07/03/2020 Lab Requisition [facility] Pathology & Laboratory Medicine - [facility] [address] [place] [address] Virginia Jimenez MD [address] [place] [address] [phone] Contact with and (suspected) exposure to other viral communicable diseases Social History Tobacco Use Types Packs/Day Years Used Date Smoking Tobacco: Never Assessed Interpersonal Safety Answer Date Record ed Physically Hurt Never 03/18/2020 Verbally Threaten Not on file 03/18/2020 Sex and Gender Information Value Date Recorded Sex Assigned at Not on file Gender Identity Not on file Sexual Orientation Not on file documented as of this encounter Plan of Treatment Not on file documented as of this encounter Procedures Procedure Name Priority Date/Time Associated Diagnosis Comments DO NOT ORDER STANDALONE - [facility] COVID TEST Today 07/03/2020 13:15 EST Contact with and (suspected) exposure to other viral communicable diseases COVID-19 TESTING Today 07/03/2020 13:1 5 EST Contact with and (suspected) exposure to other viral communicable diseases documented in this encounter Results * DO NOT ORDER STANDALONE - [facility] COVID TEST (07/03/2020 13:15 EST) COVID-19 rt-PCR Result NEGATIVE Negative 07/04/2020 20:27 EST [facility] Comment: 2019-novel Coronavirus (2019-nCoV) not detected by the qRT-PCR assay. Consider testing for other respiratory viruses or re-collecting for 2019-nCoV testing. Note: Optimum timing for peak viral levels during infections caused by 2019-nCoV have not been determined. Collection of multiple specimens from the same patient may be necessary to detect the virus. Limitations Positive results are indicative of active infection with SARS-CoV-2 but do not rule out bacterial infection or co-infection with other viruses. The agent detected may not be the definite cause of disease. In addition, detection of viral RNA may not indicate the presence of infectious virus or that SARS-CoV-2 is the causative agent for clinical symptoms. Negative results do not preclude SARS-CoV-2 infection and should not be used as the sole basis for patient management decisions. Negative results must be combined with clinical observations, patient history, and epidemiological information. False negative results may also occur if amplification inhibitors are present in the specimen or if inadequate numbers of organisms are present in the specimen. Optimum specimen types and timing for peak viral levels during infections caused by SARS-CoV-2 have not been fully determined. Collection of multiple specimens (types and time points) from the same patient may be necessary to detect the virus. The test was validated for use with upper respiratory specimens obtained via nasopharyngeal or oropharyngeal swabs in VTM, UTM, M4, M5, M6, saline, and MTM media. The performance of this test has not been established for other specimens. Specimens collected using other FDA recommended Specimen Collection Materials listed in the FDA COVID-19 [employer] communication (September 15, 2019) are processed with the caveat that they were not all validated for use with this test and the result must be interpreted in this context. Furthermore, a false negative results may occur if a specimen is improperly collected, transported or handled. If the virus mutates in the RT-PCR target region, SARS-CoV-2 may not be detected or may be detected less predictably. Inhibitors or other types of interference may produce a false negative result. An interference study evaluating the effect of common cold medications was not performed. This test is not FDA-cleared but its performance characteristics were established by our CLIA-certified, CAP-accredited, high complexity laboratory in accordance with CLIA regulations, College of [employer] (CAP) guidelines (Sep 08, 2019), and FDA guidance (Aug 20, 2019). This test is only for use under the Food and Drug Administration's Emergency Use Authorization. Swab NASAL / Unknown Swab / Unknown 07/03/2020 13:15 EST 07/03/2020 22:06 EST Virginia Jimenez MD MICROBIOLOGY - [facility] AL ORDERABLES [facility] [place], [place] * COVID-19 TESTING (07/03/2020 13:15 EST) COVID-19 rt-PCR Result NEGATIVE Negative 07/04/2020 21:32 EST [facility] Comment: 2019-novel Coronavirus (2019-nCoV) not detected by the qRT-PCR assay. Consider testing for other respiratory viruses or re-collecting for 2019-nCoV testing. Note: Optimum timing for peak viral levels during infections caused by 2019-nCoV have not been determined. Collection of multiple specimens from the same patient may be necessary to detect the virus. Limitations Positive results are indicative of active infection with SARS-CoV-2 but do not rule out bacterial infection or co-infection with other viruses. The agent detected may not be the definite cause of disease. In addition, detection of viral RNA may not indicate the presence of infectious virus or that SARS-CoV-2 is the causative agent for clinical symptoms. Negative results do not preclude SARS-CoV-2 infection and should not be used as the sole basis for patient management decisions. Negative results must be combined with clinical observations, patient history, and epidemiological information. False negative results may also occur if amplification inhibitors are present in the specimen or if inadequate numbers of organisms are present in the specimen. Optimum specimen types and timing for peak viral levels during infections caused by SARS-CoV-2 have not been fully determined. Collection of multiple specimens (types and time points) from the same patient may be necessary to detect the virus. The test was validated for use with upper respiratory specimens obtained via nasopharyngeal or oropharyngeal swabs in VTM, UTM, M4, M5, M6, saline, and MTM media. The performance of this test has not been established for other specimens. Specimens collected using other FDA recommended Specimen Collection Materials listed in the FDA COVID-19 [employer] communication (September 15, 2019) are processed with the caveat that they were not all validated for use with this test and the result must be interpreted in this context. Furthermore, a false negative results may occur if a specimen is improperly collected, transported or handled. If the virus mutates in the RT-PCR target region, SARS-CoV-2 may not be detected or may be detected less predictably. Inhibitors or other types of interference may produce a false negative result. An interference study evaluating the effect of common cold medications was not performed. This test is not FDA-cleared but its performance characteristics were established by our CLIA-certified, CAP-accredited, high complexity laboratory in accordance with CLIA regulations, College of [place] [employer] (CAP) guidelines (Sep 08, 2019), and FDA guidance (Aug 20, 2019). This test is only for use under the Food and Drug Administration's Emergency Use Authorization. Performing Lab [facility] 07/04/2020 21:32 EST [facility] Swab NASAL / Unknown Swab / Unknown 07/03/2020 13:15 EST 07/03/2020 22:06 EST Virginia Jimenez MD MICROBIOLOGY - GENER AL ORDERABLES [facility] [address] [place] [address] [facility] [place], [place] documented in this encounter Visit Diagnoses Diagnosis Contact with and (suspected) exposure to other viral communicable diseases documented in this encounter Care Teams Internal Control Consultant Relationship Specialty Start Date End Date Agustina Gold MD [address] [place] [address] [place] [address] PCP - General 03/25/14 documented as of this encounter
--- OUTSIDE RECORDS SUMMARY | 2024-02-04 13:57 | XMS_ITS | Encounter Summary ---
Author Organization [facility] Address [address] [place] [address] Care Team Providers Care Oil Field Caser Name Role Phone Agustina Gold MD Primary Care Provider [phone] Encounter Details Date Type Department Care Team (Late st Contact Info) Description 07/10/2020 Lab Requisition [facility] Pathology & Laboratory Medicine - [facility] [address] [place] [address] Virginia Jimenez MD [address] [place] [id number] Contact with and (suspected) exposure to other [...] Procedure Name Priority Date/Time Associated Diagnosis Comments ZZCOVID-19 TEST [facility] PCR Today 07/10/2020 11:29 EST Contact with and (suspected) exposure to other viral communicable diseases COVID-19 TESTING Today 07/10/2020 11:2 9 EST Contact with and (suspected) exposure to other viral communicable diseases documented in this encounter Results * COVID-19 TEST [facility] PCR (07/10/2020 11:29 EST) Swab NASAL / Unknown 07/10/2020 1 1:29 EST 07/10/2020 21:02 EST Virginia Jimenez MD MICROBIOLOGY - GENER AL ORDERABLES Performing Organization Address [facility] Co de Phone Number [facility] [address] [place] [address] * COVID-19 TESTING (07/10/2020 11:29 EST) COVID-19 rt-PCR Result Negative Negative 07/11/2020 14:55 EST [facility] Comment: This test was developed and its performance characteristics determined by [facility]. It has not been cleared or approved by the US Food and Drug Administration. FDA does not require this test to go through premarket FDA review. This test is used for clinical purposes. It should not be regarded as investigational or for research. This laboratory is certified under the Clinical Laboratory Improvement Amendments (CLIA) as qualified to perform high complexity clinical laboratory testing. This test is based on the [facility] COVID-19 Emergency Use Authorization (EUA) assay, with minor modification as defined by the FDA Performed on the [employer] RT-PCR System. Negative results do not preclude 2019-nCoV infection and should not be used as the sole basis for treatment or other patient management decisions. Negative results must be combined with clinical observations, patient history, and epidemiological information. Performing Lab [facility] 07/11/2020 14:55 EST [facility] Swab NASAL / Unknown 07/10/2020 1 1:29 EST 07/10/2020 21:02 EST Virginia Jimenez MD MICROBIOLOGY - GENER AL ORDERABLES Performing Organization Address [facility]/ZIP Co de Phone Number [facility] [address] [place] [address] documented in this encounter Visit Diagnoses Diagnosis Contact with and (suspected) exposure to other viral communicable diseases documented in this encounter Care Teams Oil [employer] Caser Relationship Specialty Start Date End Date Agustina Gold MD [address] [place] [address] [place] [address] PCP - General 03/25/14 documented as of this encounter
--- OUTSIDE RECORDS SUMMARY | 2024-02-04 13:57 | XMS_ITS | Clinical Summary ---
Author Organization [facility] Address [address] [place] [address] Care Team Providers Care Electric Truck Operator Name Role Phone Agustina Gold MD Primary Care Provider [phone] Allergies No known active allergies Medications Medication Sig Dispensed Refills Start Date End Date Status DULOXETINE HCL (CYMBALTA ORAL) Take by mouth. Active SIMVASTATIN (ZOCOR ORAL) Take by mouth. Active OXYCODONE HCL (OXYCONTIN ORAL) Take by mouth. Active LEVOTHYROXINE SODIUM (SYNTHROID ORAL) Take by mouth. Acti ve Social History Tobacco Use Types Packs/Day Years Used Date Smoking Tobacco: Never Assessed Interpersonal Safety Answer Date Record ed Physically Hurt Never 03/18/2020 Verbally Threaten Not on file 03/18/2020 Sex and Gender Information Value Date Recorded Sex Assigned at Not on file Gender Identity Not on file Sexual Orientation Not on file Last Filed Vital Signs Vital Sign Reading Time Taken Comments Blood Pressure 108/73 03/25/2014 1536 EDT Pulse - - Temperature 36 ??C (96.8 ??F) 03/25/2014 1536 EDT Respiratory Rate 14 03/25/2014 1536 EDT Oxygen Saturation 98% 03/25/2014 1536 EDT Inhaled Oxygen Concentration - - Weight 68 kg (150 lb) 03/25/2014 1536 EDT Height - - Body Mass Index - - Plan of Treatment Health Maintenance Due Date Last Done Comments Hepatitis C Screen 1950 RSV Immunization ( o r 60+ Years) (1 - 1-dose 60+ series) 2012 Fall Risk Screening 2017 COVID-19 Vaccine (2022-24 season) 2023 Care Teams Electric Truck Operator Relationship Specialty Start Date End Date Agustina Gold MD [address] [place] [address] [address] [address] PCP - General 03/25/14
--- OUTSIDE RECORDS SUMMARY | 2024-02-04 13:57 | XMS_ITS | Encounter Summary ---
Author Organization [facility] Address [address] [place] [address] Care Team Providers Care Fire Captain Name Role Phone Agustina Gold MD Primary Care Provider [phone] Reason for Visit * Reason Comments Closed Head Injury Pt slipped and fell backwards, striking posterior head. No evidence of injury. Denies other injury. Denies LOC. Not anticoagulated. A&O. Respirations unlabored. Skin warm & dry. NAD. Encounter Details Date Type Department Care Team (Late st Contact Info) Description 03/25/2014 15:32 EDT - 03/25/2014 17:05 EDT Emergency [facility] Emergency Department - [address] [place] [address] [place] [address] Ramiro Mohamud, PA-C [address] [phone] Emergency, MD Lucía Closed head injury (Primary Dx) Discharge Disposition: Home or Self Care Social History Tobacco Use Types Packs/Day Years Used Date Smoking Tobacco: Never Assessed Sex and Gender Information Value Date Recorded Sex Assigned at Not on file Gender Identity Not on file Sexual Orientation Not on file documented as of this encounter Last Filed Vital Signs Vital Sign Reading Time Taken Comments Blood Pressure 108/73 03/25/2014 1536 EDT Pulse - - Temperature 36 ??C (96.8 ??F) 03/25/2014 1536 EDT Respiratory Rate 14 03/25/2014 1536 EDT Oxygen Saturation 98% 03/25/2014 1536 EDT Inhaled Oxygen Concentration - - Weight 68 kg (150 lb) 03/25/2014 1536 EDT Height - - Body Mass Index - - documented in this encounter Discharge Instructions * Discharge Instructions* Ramiro Mohamud PA - 03/25/2014 16:47 EDT Exam today shows a tender area on the back of the left scalp, but no significant swelling or signs of serious head injury. You were given Tylenol and Zofran in the emergency room with some relief. Ath[place], continue Tylenol 1000 mg 3 times daily as needed, Zofran as well as needed for nausea. No signs of concussion at this point, but if nausea or dizziness persists, he should followup with your PCP as this is a possibility. Return immediately for worsening or uncontrolled symptoms, otherwise followup with your PCP. * Attachments The following attachments cannot be sent through Care Everywhere. * HEAD INJURY: AFTER YOUR VISIT TO THE EMERGENCY ROOM ([place]) documented in this encounter Medications at Time of Discharge Medication Sig Dispensed Refills Start Date End Date DULOXETINE HCL (CYMBALTA ORAL) Take by mouth. LEVOTHYROXINE SODIUM (SYNTHROID ORAL) Take by mouth. OXYCODONE HCL (OXYCONTIN ORAL) Take by mouth. SIMVASTATIN (ZOCOR ORAL) Take by mouth. documented as of this encounter Discharge Disposition Disposition Code Departure Means Destination Home or Self Care documented in this encounter ED Notes * Lokesh Cook RN - 03/25/2014 1704 EDT Denies nausea at time of discharge Feels improved * Ramiro Mohamud PA - 03/25/2014 1639 EDT DOS: 03/25/2014 Chief Complaint Patient presents with ??? Closed Head Injury Pt slipped and fell backwards, striking posterior head. No evidence of injury. Denies other injury.Denies LOC. Not anticoagulated. A&O. Respirations unlabored. Skin warm & dry. NAD. The patient is a 63 y.o. female who presents today with Closed Head Injury HPI Comments: Chief complaint fall, head injury. Patient slipped on the wet grass 2 hours ago, fellback and struck the back of her head on the pavement. She had no LOC or bleeding, but she was dazedfor a second. She now has pain on the back of her scalp as well as a headache. She has had significant nausea but no vomiting. Patient denies loss of vision, blurry vision, double vision. Denies photophobia. Denies bleeding from the nose or ears or any intraoral injury. Denies neck pain, back pain, change in balance or mentation or speech. Denies wrist pain. She takes no blood thinning medicines. The history is provided by the patient. Closed Head Injury Review of Systems All other systems reviewed and are negative. No past medical history on file. No past surgical history on file. No Known Allergies History Substance Use Topics ??? Smoking status: Not on file ??? Smokeless tobacco: Not on file ??? Alcohol Use: Not on file No family history on file. Vital Signs Temp: 36 ??C (96.8 ??F) Temp src: Tympanic Heart Rate: 85 BPM Resp: 14 SpO2: 98 % BP: 108/73 mmHg BP Device: BP Machine Patient Position: Sitting BP Cuff Location: Right arm O2 Device: None (Room air) Physical Exam Vitals reviewed. Constitutional: She is oriented to person, place, and time. She appears well- developed and well-nourished. She appears distressed (uncomfortable). HENT: Head: Normocephalic. Right Ear: External ear normal. Left Ear: External ear normal. Mouth/Throat: Oropharynx is clear and moist. No oropharyngeal exudate. Tender on the left posterior parietal scalp and occiput, no significant swelling, discoloration, bruising, skull depression. No hemotympanum or intraoral injury. Eyes: Conjunctivae and EOM are normal. Pupils are equal, round, and reactive to light. Neck: Normal range of motion. Neck supple. Cardiovascular: Normal rate. Musculoskeletal: Normal range of motion. She exhibits no tenderness. Neurological: She is alert and oriented to person, place, and time. No cranial nerve deficit. She exhibits normal muscle tone. Coordination normal. Skin: Skin is warm and dry. No rash noted. No erythema. Psychiatric: She has a normal mood and affect. Her behavior is normal. Judgment and thought contentnormal. Radiology orders: None Imaging Results None Procedures ED Course: A medical screening exam was performed. On exam, patient is alert and oriented x3, looks uncomfortable. Tender on the back of her left scalp with no swelling or depression or laceration. Otherwise head and neck and ENT exam unremarkable. No other injury to the extremities. Patient given Tylenol and Zofran with resolution of nausea and improvement of headache. Patient given head injury precautions, asked to followup with her PCP and return for worsening symptoms Disposition: Discharged The patient's pain was managed to an adequate level weighing risk vs. benefit of further medications. Upon departure from the Emergency Department, the patient's pain was 3 on a zero to ten scale. Condition at departure from the Emergency Department: Stable ED Current Prescriptions None MDM Number of Diagnoses or Management Options Closed head injury: Diagnosis management comments: 3 Amount and/or Complexity of Data Reviewed Obtain history from someone other than the patient: yes () Review and summarize past medical records: yes Final diagnoses: Closed head injury PCP: MD Rakan Ricketts 03/25/2014 16:55 No flowsheet data found. * Lokesh Cook RN - 03/25/2014 1608 EDT + head ache 11/29 + nausea + dizziness * Naren Recinos RN - 03/25/2014 1536 EDT Chief Complaint Patient presents with ??? Closed Head Injury Pt slipped and fell backwards, striking posterior head. No evidence of injury. Denies other injury.Denies LOC. Not anticoagulated. A&O. Respirations unlabored. Skin warm & dry. NAD. documented in this encounter Plan of Treatment Not on file documented as of this encounter Visit Diagnoses Diagnosis Closed head injury- Primary Head injury, unspecified documented in this encounter Administered Medications Inactive Administered Medications - up to 3 most recent administrations Medication Order MAR Action Action Date Dose Rate Site acetaminophen (TYLENOL) tablet 1,000 mg 1,000 mg, oral, NOW X1, 1 dose, On 03/25/14 at 1615, STAT Given 03/25/2014 16:14 EDT 1,000 mg ondansetron (ZOFRAN-ODT) disintegrating tablet 4 mg 4 mg, oral, NOW X1, 1 dose, On 03/25/14 at 1615, STAT Given 03/25/2014 16:14 EDT 4 mg ondansetron 4 mg ODT tab STARTER PACK 1 Package, oral, NOW X1, 1 dose, On 03/25/14 at 1700, STAT Given 03/25/2014 16:55 EDT 1 Package ondansetron 4 mg tab Starter Pack 1 dose, Starting on 03/25/14 at 1657, Until 03/25/14 at 1655 documented in this encounter Historical Medications * This list may reflect changes made after this encounter. Medication Sig Dispensed Refills Start Date End Date LEVOTHYROXINE SODIUM (SYNTHROID ORAL) Take by mouth. OXYCODONE HCL (OXYCONTIN ORAL) Take by mouth. SIMVASTATIN (ZOCOR ORAL) Take by mouth. DULOXETINE HCL (CYMBALTA ORAL) Take by mouth. added in this encounter Active and Recently Administered Medications Times are shown in EDT. Scheduled Medication Order 03/23/2014 03/24/2014 03/25/2014 acetaminophen (TYLENOL) tablet 1,000 mg (COMPLETED) 1,000 mg, oral, NOW X1, 1 dose, On 03/25/14 at 1615, STAT 1614 (Given - Provid er: Lokesh Cook RN) ondansetron (ZOFRAN-ODT) disintegrating tablet 4 mg (COMPLETED) 4 mg, oral, NOW X1, 1 dose, On 03/25/14 at 1615, STAT 1614 (Given - Provid er: Lokesh Cook RN) ondansetron 4 mg ODT tab STARTER PACK (COMPLETED) 1 Package, oral, NOW X1, 1 dose, On 03/25/14 at 1700, STAT 1655 (Given - Provid er: Lokesh Cook RN) documented in this encounter Orders Medications Ordered That William ht Not Have Been Administered Count Last Ordered Date First Ordered Date acetaminophen (TYLENOL) 500 mg tablet 1 09/2013 ondansetron (ZOFRAN-ODT) 4 m g disintegrating tablet 1 03/25/2014 documented in this encounter Care Teams Fire Captain Relationship Specialty Start Date End Date Agustina Gold MD [address] [place] [address] [address], [place] [address] PCP - General 03/25/14 documented as of this encounter
--- OUTSIDE RECORDS SUMMARY | 2024-02-04 13:57 | XMS_ITS | Encounter Summary ---
Author Organization [facility] Address [address] [place] [address] Care Team Providers Care Child Adolescent Psychiatrist Name Role Phone Agustina Gold MD Primary Care Provider [phone] Encounter Details Date Type Department Care Team (Late st Contact Info) Description 08/21/2020 Lab Requisition [facility] Pathology & Laboratory Medicine - [facility] [address] [place] [address] Virginia Jimenez MD [address] [place] [phone] Contact with and (suspected) exposure to [...] Comments ZZCOVID-19 TEST [facility] PCR Today 08/21/2020 13:20 EST Contact with and (suspected) exposure to other viral communicable diseases COVID-19 TESTING Today 08/21/2020 13:2 0 EST Contact with and (suspected) exposure to other viral communicable diseases documented in this encounter Results * COVID-19 TEST [facility] PCR (08/21/2020 13:20 EST) Swab NASAL / Unknown 08/21/2020 1 3:20 EST 08/21/2020 21:30 EST Virginia Jimenez MD MICROBIOLOGY - GENER AL ORDERABLES [facility] [address] [place] [address] * COVID-19 TESTING (08/21/2020 13:20 EST) COVID-19 rt-PCR Result Negative Negative 08/22/2020 13:50 EST [facility] Comment: This test has not been FDA cleared or approved. This test has been authorized by FDA under an EUA for use by authorized laboratories. This test has been authorized only for detection of nucleic acid from 2019-nCoV, not for any other viruses or pathogens. This test is only authorized for the duration of the declaration that circumstances exist justifying the authorization of emergency use of in vitro diagnostic tests for detection and/or diagnosis of 2019-nCoV under section 564(b)(1) of Act, 21 U.S.C ?? 360bbb-3(b) (1), unless the authorization is terminated or revoked sooner. Negative results do not preclude 2019-nCoV infection and should not be used as the sole basis for treatment or other patient management decisions. Negative results must be combined with clinical observations, patient history, and epidemiological information. Testing was performed using the stacy SARS-CoV-2 assay ([employer] on the Stacy 6800 System Performing Lab Stacy [address] [facility] Lab 08/22/2020 13:50 EST [facility] Swab NASAL / Unknown 08/21/2020 1 3:20 EST 08/21/2020 21:30 EST Virginia Jimenez MD MICROBIOLOGY - GENER AL ORDERABLES [facility] [address] [place] [address] documented in this encounter Visit Diagnoses Diagnosis Contact with and (suspected) exposure to other viral communicable diseases documented in this encounter Care Teams Child Adolescent Psychiatrist Relationship Specialty Start Date End Date Agustina Gold MD [address] [place] [address] [place] [address] PCP - General 03/25/14 documented as of this encounter
--- OUTSIDE RECORDS SUMMARY | 2024-02-04 13:57 | XMS_ITS | Encounter Summary ---
Author Organization [facility] Address [address] [place] [address] Care Team Providers Care Seed Cleaner Operator Name Role Phone Agustina Gold MD Primary Care Provider Encounter Details Date Type Department Care Team (Late st Contact Info) Description 06/05/2020 Lab Requisition [facility] Pathology & Laboratory Medicine - [facility] [address] [place] [address] Virginia Jimenez MD [address] [place] [address] [phone] Encounter for other general examination Social History Tobacco Use Types Packs/Day Years [...] ORDER STANDALONE - BROAD COVID TEST Today 06/05/2020 13:35 EST Encounter for other general examination COVID-19 TESTING Today 06/05/2020 13:3 5 EST Encounter for other general examination documented in this encounter Results * DO NOT ORDER STANDALONE - BROAD COVID TEST (06/05/2020 13:35 EST) COVID-19 rt-PCR Result NEGATIVE Negative 06/08/2020 8:45 EST [facility] Comment: 2019-novel Coronavirus (2019-nCoV) not [...] in accordance with CLIA regulations, [employer] of [place] Pathologists (CAP) guidelines (Sep 08, 2019), and FDA guidance (Aug 20, 2019). This test is only for use under the Food and Drug Administration's Emergency Use Authorization. Swab ENTIRE NASOPHARYNX / Unknown Swab / Unknown 06/05/2020 13:35 EST 06/05/2020 21:23 EST Virginia Jimenez MD MICROBIOLOGY - [facility] AL ORDERABLES [facility] [place], [place] * COVID-19 TESTING (06/05/2020 13:35 EST) COVID-19 rt-PCR Result NEGATIVE Negative 06/08/2020 10:04 EST [facility] Comment: 2019-novel Coronavirus (2019-nCoV) not detected [...] in accordance with CLIA regulations, College of [employer] [place] Pathologists (CAP) guidelines (Sep 08, 2019), and FDA guidance (Aug 20, 2019). This test is only for use under the Food and Drug Administration's Emergency Use Authorization. Performing Lab [facility] 06/08/2020 10:04 EST [facility] Swab ENTIRE NASOPHARYNX / Unknown Swab / Unknown 06/05/2020 13:35 EST 06/05/2020 21:23 EST Virginia Jimenez MD MICROBIOLOGY - GENER AL ORDERABLES Performing Organization Address City/State/[facility] Co de Phone Number [facility] [address] [place] [phone] [facility] [place], [place] documented in this encounter Visit Diagnoses Diagnosis Encounter for other general examination documented in this encounter Care Teams Seed Cleaner Operator Relationship Specialty Start Date End Date Agustina Gold MD [address] [place] [address] [place] [address] PCP - General 03/25/14 documented as of this encounter
--- OUTSIDE RECORDS SUMMARY | 2024-02-04 13:57 | XMS_ITS | Encounter Summary ---
Author Organization [facility] Address [address] [place] [address] Care Team Providers Care Stranding Supervisor Name Role Phone Agustina Gold MD Primary Care Provider [phone] Encounter Details Date Type Department Care Team (Late st Contact Info) Description 06/26/2020 Lab Requisition [facility] Pathology & Laboratory Medicine - [facility] [address] [place] [address] Virginia Jimenez MD [address] [place] [address] [phone] Contact with and (suspected) exposure to other [...] ORDER STANDALONE - BROAD COVID TEST Today 06/26/2020 13:39 EST Contact with and (suspected) exposure to other viral communicable diseases COVID-19 TESTING Today 06/26/2020 13:3 9 EST Contact with and (suspected) exposure to other viral communicable diseases documented in this encounter Results * DO NOT ORDER STANDALONE - BROAD COVID TEST (06/26/2020 13:39 EST) COVID-19 rt-PCR Result NEGATIVE Negative 06/27/2020 20:36 EST [facility] Comment: 2019-novel Coronavirus [...] in accordance with CLIA regulations, College of [place] Pathologists (CAP) guidelines (Sep 08, 2019), and FDA guidance (Aug 20, 2019). This test is only for use under the Food and Drug Administration's Emergency Use Authorization. Swab ENTIRE NASOPHARYNX / Unknown Swab / Unknown 06/26/2020 13:39 EST 06/26/2020 21:09 EST Virginia Jimenez MD MICROBIOLOGY - GENER AL ORDERABLES [place], [place] * COVID-19 TESTING (06/26/2020 13:39 EST) Pathologist [facility] COVID-19 rt-PCR Result NEGATIVE Negative 06/27/2020 21:14 EST [facility] Comment: 2019-novel Coronavirus (2019-nCoV) not [...] in accordance with CLIA regulations, College of [place] Pathologists (CAP) guidelines (Sep 08, 2019), and FDA guidance (Aug 20, 2019). This test is only for use under the Food and Drug Administration's Emergency Use Authorization. Performing Lab [facility] 06/27/2020 21:14 EST [facility] Swab ENTIRE NASOPHARYNX / Unknown Swab / Unknown 06/26/2020 13:39 EST 06/26/2020 21:09 EST Virginia Jimenez MD MICROBIOLOGY - GENER AL ORDERABLES [facility] [address] [place] [address] [facility] [place], [place] documented in this encounter Visit Diagnoses Diagnosis Contact with and (suspected) exposure to other viral communicable diseases documented in this encounter Care Teams Stranding Supervisor Relationship Specialty Start Date End Date Agustina Gold MD [address] [place] [address] [place] [address] PCP - General 03/25/14 documented as of this encounter
--- OUTSIDE RECORDS SUMMARY | 2024-02-04 13:57 | XMS_ITS | Encounter Summary ---
Author Organization [facility] Address [address] [place] [address] Care Team Providers Care Chief Radiology Name Role Phone Agustina Gold MD Primary Care Provider [phone] Encounter Details Date Type Department Care Team (Late st Contact Info) Description 04/03/2020 Lab Requisition [facility] Pathology & Laboratory Medicine - [facility] [address] [place] [address] Virginia Jimenez MD [address] [place] [address] [phone] Encounter for screening for other viral diseases Social History Tobacco Use Types Packs/Day [...] ORDER STANDALONE - BROAD COVID TEST Today 04/03/2020 13:30 EDT Encounter for screening for other viral diseases COVID-19 TESTING Today 04/03/2020 13:3 0 EDT Encounter for screening for other viral diseases documented in this encounter Results * DO NOT ORDER STANDALONE - BROAD COVID TEST (04/03/2020 13:30 EDT) COVID-19 rt-PCR Result NEGATIVE Negative 04/05/2020 16:09 EDT [facility] Comment: 2019-novel Coronavirus (2019-nCoV) not [...] in accordance with CLIA regulations, College of [place] Pathologists (CAP) guidelines (Sep 08, 2019), and FDA guidance (Aug 20, 2019). This test is only for use under the Food and Drug Administration's Emergency Use Authorization. Swab ENTIRE NASOPHARYNX / Unknown 04/03/2020 13:30 EDT 04/03/2020 21:49 EDT Virginia Jimenez MD MICROBIOLOGY - [facility] AL ORDERABLES [facility] [place], [place] * COVID-19 TESTING (04/03/2020 13:30 EDT) COVID-19 rt-PCR Result NEGATIVE Negative 04/05/2020 17:16 EDT [facility] Comment: 2019-novel Coronavirus (2019-nCoV) not [...] in accordance with CLIA regulations, College of [place] Pathologists (CAP) guidelines (Sep 08, 2019), and FDA guidance (Aug 20, 2019). This test is only for use under the Food and Drug Administration's Emergency Use Authorization. Performing Lab [facility] 04/05/2020 17:16 EDT [facility] Swab ENTIRE NASOPHARYNX / Unknown 04/03/2020 13:30 EDT 04/03/2020 21:49 EDT Virginia Jimenez MD MICROBIOLOGY - GENER AL ORDERABLES [facility] [address] [place] [address] [facility] [place], [place] documented in this encounter Visit Diagnoses Diagnosis Encounter for screening for other viral diseases documented in this encounter Care Teams Chief Radiology Relationship Specialty Start Date End Date Agustina Gold MD [address] [place] [address] [place] [address] PCP - General 03/25/14 documented as of this encounter
--- OUTSIDE RECORDS SUMMARY | 2024-02-04 13:57 | XMS_ITS | Encounter Summary ---
Author Organization [facility] Address [address] [place] [address] Care Team Providers Care Water Main Pipe Layer Name Role Phone Agustina Gold MD Primary Care Provider [phone] Encounter Details Date Type Department Care Team (Late st Contact Info) Description 07/31/2020 Lab Requisition [facility] Pathology & Laboratory Medicine - [facility] [address] [place] [address] Virginia Jimenez MD [address] [place] [phone] Contact with and (suspected) exposure to [...] Comments ZZCOVID-19 TEST [facility] PCR Today 07/31/2020 13:05 EST Contact with and (suspected) exposure to other viral communicable diseases COVID-19 TESTING Today 07/31/2020 13:0 5 EST Contact with and (suspected) exposure to other viral communicable diseases documented in this encounter Results * COVID-19 TEST [facility] PCR (07/31/2020 13:05 EST) Swab NASAL / Unknown 07/31/2020 1 3:05 EST 07/31/2020 21:23 EST Virginia Jimenez MD MICROBIOLOGY - GENER AL ORDERABLES Performing Organization Address City/[facility]/ZIP Co de Phone Number [facility] [address] [place] [address] * COVID-19 TESTING (07/31/2020 13:05 EST) COVID-19 rt-PCR Result Negative Negative 08/01/2020 17:23 EST [facility] Comment: This test has not [...] clinical observations, patient history, and epidemiological information. This test was developed and its performance characteristics determined by [facility]. It has not been cleared or approved [...] testing. This test is based on the [facility] COVID-19 Emergency Use Authorization (EUA) assay, with minor modification as defined by the FDA Performed on the [employer] 7 Flex RT-PCR System. Performing Lab [facility] 08/01/2020 17:23 EST [facility] Swab NASAL / Unknown 07/31/2020 1 3:05 EST 07/31/2020 21:23 EST Virginia Jimenez MD MICROBIOLOGY - GENER AL ORDERABLES [facility] [address] [place] [address] documented in this encounter Visit Diagnoses Diagnosis Contact with and (suspected) exposure to other viral communicable diseases documented in this encounter Care Teams Water Main Pipe Layer Relationship Specialty Start Date End Date Agustina Gold MD [address] [place] [address] [place] [address] PCP - General 03/25/14 documented as of this encounter
--- OUTSIDE RECORDS SUMMARY | 2024-02-04 13:57 | XMS_ITS | Encounter Summary ---
Author Organization [facility] Address [address] [place] [address] Care Team Providers Care Inventory Control Planner Name Role Phone Agustina Gold MD Primary Care Provider [phone] Encounter Details Date Type Department Care Team (Late st Contact Info) Description 06/19/2020 Lab Requisition [facility] Pathology & Laboratory Medicine - [facility] [address] [place] [address] Virginia Jimenez MD [address] [place] [address] [phone] Contact with and (suspected) exposure to other [...] ORDER STANDALONE - BROAD COVID TEST Today 06/19/2020 13:26 EST Contact with and (suspected) exposure to other viral communicable diseases COVID-19 TESTING Today 06/19/2020 13:2 6 EST Contact with and (suspected) exposure to other viral communicable diseases documented in this encounter Results * DO NOT ORDER STANDALONE - BROAD COVID TEST (06/19/2020 13:26 EST) COVID-19 rt-PCR Result NEGATIVE Negative 06/20/2020 17:18 EST [facility] Comment: 2019-novel Coronavirus [...] in accordance with CLIA regulations, College of [place] Pathologists (CAP) guidelines (Sep 08, 2019), and FDA guidance (Aug 20, 2019). This test is only for use under the Food and Drug Administration's Emergency Use Authorization. Swab ENTIRE NASOPHARYNX / Unknown 06/19/2020 13:26 EST 06/19/2020 21:53 EST Virginia Jimenez MD MICROBIOLOGY - [facility] AL ORDERABLES [facility] [place], [place] * COVID-19 TESTING (06/19/2020 13:26 EST) COVID-19 rt-PCR Result NEGATIVE Negative 06/20/2020 18:08 EST [facility] Comment: 2019-novel Coronavirus (2019-nCoV) not [...] in accordance with CLIA regulations, College of [place] [employer] Pathologists (CAP) guidelines (Sep 08, 2019), and FDA guidance (Aug 20, 2019). This test is only for use under the Food and Drug Administration's Emergency Use Authorization. Performing Lab [facility] 06/20/2020 18:08 EST [facility] Swab ENTIRE NASOPHARYNX / Unknown 06/19/2020 13:26 EST 06/19/2020 21:53 EST Virginia Jimenez MD MICROBIOLOGY - GENER AL ORDERABLES [facility] [address] [place] [address] [facility] [place], [place] documented in this encounter Visit Diagnoses Diagnosis Contact with and (suspected) exposure to other viral communicable diseases documented in this encounter Care Teams Inventory Control Planner Relationship Specialty Start Date End Date Agustina Gold MD [address] [place] [address] [place] [address] PCP - General 03/25/14 documented as of this encounter
--- OUTSIDE RECORDS SUMMARY | 2024-02-04 13:57 | XMS_ITS | Encounter Summary ---
Author Organization [facility] Address [address] [place] [address] Care Team Providers Care Fitting Room Inspector Name Role Phone Agustina Gold MD Primary Care Provider [phone] Encounter Details Date Type Department Care Team (Late st Contact Info) Description 08/28/2020 Lab Requisition [facility] Pathology & Laboratory Medicine - [facility] [address] [place] [address] Virginia Jimenez MD [address] [place] [address] Contact with and (suspected) exposure to covid-19 Social History Tobacco Use Types Packs/Day Years [...] Comments ZZCOVID-19 TEST [facility] PCR Today 08/28/2020 9:30 EST Contact with and (suspected) exposure to covid-19 COVID-19 TESTING Today 08/28/2020 9:30 EST Contact with and (suspected) exposure to covid-19 documented in this encounter Results * COVID-19 TEST [facility] PCR (08/28/2020 9:30 EST) Swab NASAL / Unknown 08/28/2020 9 :30 EST 08/28/2020 21:04 EST Virginia Jimenez MD MICROBIOLOGY - GENER AL ORDERABLES Performing Organization Address City/[facility] Co de Phone Number [facility] [address] [place] [address] * COVID-19 TESTING (08/28/2020 9:30 EST) COVID-19 rt-PCR Result Negative Negative 08/29/2020 11:28 EST [facility] Comment: This test has [...] performed using the stacy SARS-CoV-2 assay ([employer] on the Stacy 6800 System Performing Lab [facility] [address] [facility] 08/29/2020 11:28 EST [facility] Swab NASAL / Unknown 08/28/2020 9 :30 EST 08/28/2020 21:04 EST Virginia Jimenez MD MICROBIOLOGY - GENER AL ORDERABLES Performing Organization Address City/[facility]/ZIP Co de Phone Number [facility] [address] [place] [address] documented in this encounter Visit Diagnoses Diagnosis Contact with and (suspected) exposure to covid-19 documented in this encounter Care Teams Fitting Room Inspector Relationship Specialty Start Date End Date Agustina Gold MD [address] [place] [address] [place] [address] PCP - General 03/25/14 documented as of this encounter
--- OUTSIDE RECORDS SUMMARY | 2024-02-04 13:57 | XMS_ITS | Encounter Summary ---
Author Organization [facility] Address [address] [place] [address] Care Team Providers Care Sales Service Supervisor Name Role Phone Agustina Gold MD Primary Care Provider [phone] Encounter Details Date Type Department Care Team (Late st Contact Info) Description 05/30/2020 Lab Requisition [facility] Pathology & Laboratory Medicine - [facility] [address] [place] [address] Virginia Jimenez MD [address] [place] [address] Contact with and (suspected) exposure to [...] Comments ZZCOVID-19 TEST [facility] PCR Today 05/29/2020 12:34 EST Contact with and (suspected) exposure to other viral communicable diseases COVID-19 TESTING Today 05/29/2020 12:3 4 EST Contact with and (suspected) exposure to other viral communicable diseases documented in this encounter Results * COVID-19 TEST [facility] PCR (05/29/2020 12:34 EST) Swab ENTIRE NASOPHARYNX / Unknown 05/29/2020 12:34 EST 05/30/2020 0:40 EST Virginia Jimenez MD MICROBIOLOGY - GENER AL ORDERABLES Performing Organization Address [facility] Co de Phone Number [facility] [address] [place] [address] * COVID-19 TESTING (05/29/2020 12:34 EST) COVID-19 rt-PCR Result Negative Negative 05/30/2020 14:06 EST [facility] Comment: This test has [...] clinical observations, patient history, and epidemiological information. Performed on the [employer] instrument Performing Lab [facility] 05/30/2020 14:06 EST [facility] Swab 05/29/2020 12:3 4 EST 05/30/2020 0:40 EST Virginia Jimenez MD MICROBIOLOGY - GENER AL ORDERABLES Performing Organization Address [facility] Co de Phone Number [facility] [address] [place] [address] documented in this encounter Visit Diagnoses Diagnosis Contact with and (suspected) exposure to other viral communicable diseases documented in this encounter Care Teams Sales Service Supervisor Relationship Specialty Start Date End Date Agustina Gold MD [address] [place] [address] [address] [place] [address] PCP - General 03/25/14 documented as of this encounter
--- OUTSIDE RECORDS SUMMARY | 2024-02-04 13:57 | XMS_ITS | Encounter Summary ---
Author Organization [facility] Address [address] [place] [address] Care Team Providers Care Boilermaker'S Assistant Name Role Phone Agustina Gold MD Primary Care Provider [phone] Encounter Details Date Type Department Care Team (Late st Contact Info) Description 06/12/2020 Lab Requisition [facility] Pathology & Laboratory Medicine - [facility] [address] [place] [address] Virginia Jimenez MD [address] [place] [address] [phone] Contact with and (suspected) exposure to other [...] ORDER STANDALONE - [facility] COVID TEST Today 06/12/2020 12:26 EST Contact with and (suspected) exposure to other viral communicable diseases COVID-19 TESTING Today 06/12/2020 12:2 6 EST Contact with and (suspected) exposure to other viral communicable diseases documented in this encounter Results * DO NOT ORDER STANDALONE - [facility] COVID TEST (06/12/2020 12:26 EST) COVID-19 rt-PCR Result NEGATIVE Negative 06/13/2020 19:45 EST [facility] Comment: 2019-novel Coronavirus [...] in accordance with CLIA regulations, College of [employer] (CAP) guidelines (Sep 08, 2019), and FDA guidance (Aug 20, 2019). This test is only for use under the Food and Drug Administration's Emergency Use Authorization. Swab ENTIRE NASOPHARYNX / Unknown 06/12/2020 12:26 EST 06/12/2020 21:35 EST Virginia Jimenez MD MICROBIOLOGY - [facility] AL ORDERABLES [facility] [place], [place] * COVID-19 TESTING (06/12/2020 12:26 EST) COVID-19 rt-PCR Result NEGATIVE Negative 06/13/2020 20:36 EST [facility] Comment: 2019-novel Coronavirus (2019-nCoV) not [...] in accordance with CLIA regulations, [employer] of [employer] [employer] (CAP) guidelines (Sep 08, 2019), and FDA guidance (Aug 20, 2019). This test is only for use under the Food and Drug Administration's Emergency Use Authorization. Performing Lab [facility] 06/13/2020 20:36 EST [facility] Swab ENTIRE NASOPHARYNX / Unknown 06/12/2020 12:26 EST 06/12/2020 21:35 EST Virginia Jimenez MD MICROBIOLOGY - GENER AL ORDERABLES [facility] [address] [place] [address] [facility] [place], [place] documented in this encounter Visit Diagnoses Diagnosis Contact with and (suspected) exposure to other viral communicable diseases documented in this encounter Care Teams Boilermaker'S Assistant Relationship Specialty Start Date End Date Agustina Gold MD [address] [place] [address] [place] [address] PCP - General 03/25/14 documented as of this encounter
--- OUTSIDE RECORDS SUMMARY | 2024-02-04 13:57 | XMS_ITS | Encounter Summary ---
Author Organization [facility] Address [address] [place] [address] Care Team Providers Care Business Analyst Sales Operations Name Role Phone Agustina Gold MD Primary Care Provider [phone] Encounter Details Date Type Department Care Team (Late st Contact Info) Description 05/15/2020 Lab Requisition [facility] Pathology & Laboratory Medicine - [address] [address] Virginia Jimenez MD [address] [place] [address] [phone] Encounter for screening for other viral diseases [...] Comments ZZCOVID-19 TEST [facility] PCR Today 05/15/2020 12:40 EST Encounter for screening for other viral diseases COVID-19 TESTING Today 05/15/2020 12:4 0 EST Encounter for screening for other viral diseases documented in this encounter Results * COVID-19 TEST [facility] PCR (05/15/2020 12:40 EST) Swab ENTIRE NASOPHARYNX / Unknown 05/15/2020 12:40 EST 05/15/2020 20:50 EST Virginia Jimenez MD MICROBIOLOGY - GENER AL ORDERABLES [facility] [address] [place] [address] * COVID-19 TESTING (05/15/2020 12:40 EST) COVID-19 rt-PCR Result Negative Negative 05/16/2020 22:23 EST [facility] Comment: This test has not [...] history, and epidemiological information. Performed on the [employer] Fusion instrument Performing Lab [place] [facility] 05/16/2020 22:23 EST [facility] Swab ENTIRE NASOPHARYNX / Unknown 05/15/2020 12:40 EST 05/15/2020 20:50 EST Virginia Jimenez MD MICROBIOLOGY - GENER AL ORDERABLES Performing Organization Address [facility] Co de Phone Number [facility] [address] [place] [address] documented in this encounter Visit Diagnoses Diagnosis Encounter for screening for other viral diseases documented in this encounter Care Teams Business Analyst Sales Operations Relationship Specialty Start Date End Date Agustina Gold MD [address] [place] [address] [address] [place] [address] PCP - General 03/25/14 documented as of this encounter
--- OUTSIDE RECORDS SUMMARY | 2024-02-04 13:57 | XMS_ITS | Referral Summary ---
Author Organization [facility] Address [address] [place] [address] Care Team Providers Care Arts And Crafts Instructor Name Role Phone Agustina Gold MD Primary Care Provider [phone] Allergies No known active allergies Medications Medication [...] Mass Index - - Plan of Treatment Not on file Care Teams Arts And Crafts Instructor Relationship Specialty Start Date End Date Agustina Gold MD [address] [place] [address] [address] [place], [place] [address] PCP - General 03/25/14
--- OUTSIDE RECORDS SUMMARY | 2024-02-04 13:57 | XMS_ITS | Encounter Summary ---
Author Organization [facility] Address [address] [place] [address] Care Team Providers Care Property Utilization Officer Name Role Phone Agustina Gold MD Primary Care Provider Encounter Details Date Type Department Care Team (Late st Contact Info) Description 08/08/2020 Lab Requisition [facility] Pathology & Laboratory Medicine - [facility] [address] [place] [address] Virginia Jimenez MD [address] [place] [address] [phone] Contact with and (suspected) exposure to other [...] Comments ZZCOVID-19 TEST [facility] PCR Today 08/07/2020 13:09 EST Contact with and (suspected) exposure to other viral communicable diseases COVID-19 TESTING Today 08/07/2020 13:0 9 EST Contact with and (suspected) exposure to other viral communicable diseases documented in this encounter Results * COVID-19 TEST [facility] PCR (08/07/2020 13:09 EST) Swab NASAL / Unknown 08/07/2020 1 3:09 EST 08/08/2020 20:21 EST Virginia Jimenez MD MICROBIOLOGY - GENER AL ORDERABLES Performing Organization Address City/[facility]/ZIP Co de Phone Number [facility] [address] [place] [address] * COVID-19 TESTING (08/07/2020 13:09 EST) COVID-19 rt-PCR Result Negative Negative 2020 14:57 EST [facility] Comment: This test has [...] developed and its performance characteristics determined by [facility]. It has not been cleared or approved [...] testing. This test is based on the [facility] COVID-19 Emergency Use Authorization (EUA) assay, with minor modification as defined by the FDA Performed on the TVplus 7 Flex RT-PCR System. Performing Lab [facility] 2020 14:57 EST [facility] Swab NASAL / Unknown 08/07/2020 1 3:09 EST 08/08/2020 20:21 EST Virginia Jimenez MD MICROBIOLOGY - GENER AL ORDERABLES [facility] [address] [place] [address] documented in this encounter Visit Diagnoses Diagnosis Contact with and (suspected) exposure to other viral communicable diseases documented in this encounter Care Teams Property Utilization Officer Relationship Specialty Start Date End Date Agustina Gold MD [address] [place] [address] [place] [address] PCP - General 03/25/14 documented as of this encounter
--- OUTSIDE RECORDS SUMMARY | 2024-02-04 13:57 | XMS_ITS | Encounter Summary ---
Author Organization [facility] Address [address] [place] [address] Care Team Providers Care Card Grinder Helper Name Role Phone Agustina Gold MD Primary Care Provider [phone] Encounter Details Date Type Department Care Team (Late st Contact Info) Description 03/07/2020 Lab Requisition [facility] Pathology & Laboratory Medicine - [facility] [address] [place], [place] [id number] Outr Resulting Lab, Provider Social History Tobacco Use Types Packs/Day Years [...] ORDER STANDALONE - [facility] COVID TEST Today 03/07/2020 9:52 EDT COVID-19 TESTING Routine 03/07/2020 9:52 EDT documented in this encounter Results * DO NOT ORDER STANDALONE - [facility] COVID TEST (03/07/2020 9:52 EDT) COVID-19 rt-PCR Result NEGATIVE Negative 03/08/2020 13:18 EDT [facility] Comment: 2019-novel Coronavirus (2019-nCoV) [...] in accordance with CLIA regulations, College of [employer]ologists (CAP) guidelines (Sep 08, 2019), and FDA guidance (Aug 20, 2019). This test is only for use under the Food and Drug Administration's Emergency Use Authorization. Swab ENTIRE NASOPHARYNX / Unknown 03/07/2020 9:52 EDT 03/07/2020 16:53 EDT Provider Outr Resulting Lab MICROBIOLOGY - GENERAL ORDERABLES [facility] [place], [place] * COVID-19 TESTING (03/07/2020 9:52 EDT) COVID-19 rt-PCR Result NEGATIVE Negative 03/08/2020 14:21 EDT [facility] Comment: 2019-novel Coronavirus (2019-nCoV) not detected [...] in accordance with CLIA regulations, College of [employer]ologists (CAP) guidelines (Sep 08, 2019), and FDA guidance (Aug 20, 2019). This test is only for use under the Food and Drug Administration's Emergency Use Authorization. Performing Lab [facility] 03/08/2020 14:21 EDT [facility] Swab 03/07/2020 9:52 EDT 03/07/2020 16:53 EDT Provider Outr Resulting Lab MICROBIOLOGY - GENERAL ORDERABLES [facility] [address] [place] [address] [facility] [place], [place] documented in this encounter Visit Diagnoses Not on filedocumented in this encounter Care Teams Card Grinder Helper Relationship Specialty Start Date End Date Agustina Gold MD [address] [place] [address] [place] [address] PCP - General 03/25/14 documented as of this encounter
--- OUTSIDE RECORDS SUMMARY | 2024-02-04 13:58 | XMS_ITS | Encounter Summary ---
Author Organization [facility] Address [facility] [place] [address] [place] [id number] Care Team Providers Care Flight Crew Ordnanceman Name Role Phone Agustina Gold MD Primary Care Provider [phone] Encounter Details Date Type Department Care Team (Late st Contact Info) Description 06/11/2010 2:05 PM EST Follow-Up Sleep Medicine [facility] [place] [address] Liza Nicolas MD [facility] [place] [address] Social History Tobacco Use Types Packs/Day Years Used Date Smoking Tobacco: Never Assessed Sex and Gender Information Value Date Recorded Sex Assigned at Not on file Gender Identity Not on file Sexual Orientation Not on file documented as of this encounter Plan of Treatment Not on file documented as of this encounter Visit Diagnoses Not on filedocumented in this encounter Care Teams Flight Crew Ordnanceman Relationship Specialty Start Date End Date Augstina Gold MD [address] [place] [address] PCP - General 05/14/10 documented as of this encounter
--- OUTSIDE RECORDS SUMMARY | 2024-02-04 13:58 | XMS_ITS | Encounter Summary ---
[place] [address] Care Team Providers Care Shipbuilding Draftsperson Name Role Phone Agustina Gold MD Primary Care Provider [phone] Reason for Referral * Consultation (Routine) - Closed Specialty Diagnoses / Procedures Referred By Contac t Referred To Contact [facility] Diagnoses Chronic back pain, unspecified back location, unspecified back pain laterality Spine-Low back pain/h/o compression fx/MRI 01/2022 in [facility] Courtney Pandya MD [address] [place] [address] [facility] [place] [address] Referral ID Status Reason Start Date Expiration Date V isits Requested Visits Authorized [id number] Closed Consult, Test & Treat PCP Updated and/or Approved 03/25/2023 03/25/2024 1 1 Encounter Details Date Type Department Care Team (Latest Contact Info) Description 03/31/2023 Transcribe Orders e[facility] Incoming Referrals [phone] Courtney Pandya MD [address] [place], [place] [id number] Chronic back pain, unspecified back location, unspecified back pain laterality Social History Tobacco Use Types Packs/Day Years Used Date Smoking Tobacco: Former Cigarettes 1.5 30 0 09/20/1980 - 09/20/2010 Smokeless Tobacco: Never Alcohol Use Standard Drinks/Week Comments No 0 (1 standard drink = 0.6 oz pur e alcohol) Sex and Gender Information Value Date Recorded Sex Assigned at Not on file Gender Identity Not on file Sexual Orientation Not on file documented as of this encounter Plan of Treatment Scheduled Referrals Name Type Priority Associated Diagnoses Orde r Schedule Referral to Spine Center Outpatient Referral Routine Chronic back pain, unspecified back location, unspecified back pain laterality Ordered: 03/31/2023 documented as of this encounter Visit Diagnoses Diagnosis Chronic back pain, unspecified back location, unspecified back pain laterality documented in this encounter Care Teams Shipbuilding Draftsperson Relationship Specialty Start Date End Date Agustina Gold MD [address] [place] [address] PCP - General 05/14/10 documented as of this encounter
--- OUTSIDE RECORDS SUMMARY | 2024-02-04 13:58 | XMS_ITS | Encounter Summary ---
Author Organization [facility] Address [facility] [place] [address] Care Team Providers Care Stitch Bonding Machine Tender Helper Name Role Phone Agustina Gold MD Primary Care Provider [phone] Encounter Details Date Type Department Care Team (Latest Contact Info) Description 10/04/2010 10:31 AM EDT - 10/05/2010 1:25 PM EDT Hospital Encounter [address] [place] [id number] Antony Ng MD [facility]OLARYNG[place] [address] SHANELL (obstructive sleep apnea) Discharge Disposition: Home Social History Tobacco Use Types Packs/Day Years Used Date Smoking Tobacco: Never Assessed Sex and Gender Information Value Date Recorded Sex Assigned at Not on file Gender Identity Not on file Sexual Orientation Not on file documented as of this encounter Last Filed Vital Signs Vital Sign Reading Time Taken Comments Blood Pressure 95/61 10/05/2010 7:29 AM EDT Pulse 72 10/05/2010 11:21 AM EDT Temperature 36.4 ??C (97.5 ??F) 10/05/2010 11:21 AM E DT Respiratory Rate 18 10/05/2010 11:21 AM EDT Oxygen Saturation 95% 10/05/2010 11:21 AM EDT Inhaled Oxygen Concentration - - Weight - - Height - - Body Mass Index - - documented in this encounter Discharge Instructions * Patient Instructions* Juana Banda MD - 10/04/2010 3:52 PM EDT Instructions Given to Patient at Discharge: Activity level: Resume normal activities as tolerated. RECOMMENDATIONS: - Stool softener, mild laxatives or enemas if needed to avoid straining with a bowel movement if constipated from pain medications - Take Tylenol for a low grade fever (less than 100 degrees F) DIET: - Start with liquid diet for two days then soft foods which you may increase to a regular diet as tolerated - As tolerated increase intake of fluids, vegetables, fresh fruit, fiber to avoid constipation COMFORT: - May have a prescription for pain medication and antibiotics, take as directed by your doctor - Elevate your head at night Shower/Bath: no restrictions on bathing. Wound Care: No special wound care instructions. Call your doctor if: Please call if you notice worsening redness or drainage from incision(s) lasting longer than 5 days after your surgery, any foul- smelling drainage from the incision, pain not controlled by pain medications, persistent nausea and vomiting, or for any fevers greater than 101.3 F. IMPORTANT PHONE NUMBERS: ENT Clinic: [phone] ENT Residents Instant Potato Processing Supervisor (after 5pm or before 8am): [phone] Driving: No driving while still taking opioid pain medications (wait at least 6- 8 hours since last dose). No driving if you are still sore from surgery as it may limit your ability to react quickly if necessary. Follow up Appointments: Follow-up appointment will be scheduled with Dr. Ng in 4 weeks. Appointment will be mailed to you. Please call [phone] (clinic number for appointments) to confirm date and time of your appointment if you do not receive your appointment in 3 weeks. documented in this encounter Medications at Time of Discharge Medication Sig Dispensed Refills Start Date End Date OXYcodone (ROXICODONE) 5 mg/5 mL solutionIndications:SHANELL (obstructive sleep apnea) Take 5-15 mLs by mouth every 3 hours as needed for Pain. 500 mL 0 10/05/2010 10/10/2010 documented as of this encounter Progress Notes * Sis-Oralia Naik - 10/05/2010 3:27 PM EDT Clinical Nutrition Note Name: Allen Lynne Age: 60 y.o. Sex; Female Date of : 1950 Date: 10/05/2010 Nutrition Services Education Note MedDx/PMHx: s/p UPPP for SHANELL on 10/04. Reason for Nutrition Intervention: Diet Order Diet Order: Soft Appetite: fair Food allergies: none Weight: (kg) none available Education: Dysphagia Soft, Tips To Better Food Intake (Protein, Appetite) dietary guidelines. Verbalized good understanding. Education material, with means of contact provided. Assessment: Patient to be discharged today. Nutrition Plan: Diet: Soft. Recommend Daily Multi Vitamins. Encourage good po intake. Monitor weight. Support and encouragement provided. Nutrition services to follow weekly thru hospital course unless consulted in the interim. ORALIA DODD 10/05/2010 * Lila Grider RN - 10/05/2010 11:58 AM EDT 60 yo female RN s/p UPPP states pain varies between 5/10 to10/10. Consult w/ Dr. Banda increased pt.'s pain medication from q.4 hrs to q.3 hrs. With good effect. Pt. Denies lightheadedness or unsteady gait when OOB and ambulating. RNs observation is that patient has full strengths UE and LE bilat; no ambulation issues. Pt. Given AVS and all questions answered to pt.'s and husbands satisfaction.Pt. Given D/C pain medications; pt. Stated she had liquid Tylenol at home already. IV removed from R. Arm w/o incident. Pt. Left floor w/all belongings and declined to use wheelchair. * Juana Banda MD - 10/05/2010 8:39 AM EDT Otolaryngology Inpatient Progress Note ID: Allen Lynne is a 60yo who is s/p UPPP for SHANELL on 10/04. S/24hr: no acute events overnight. Pain is fairly well controlled on oral medications, but has painat 3 hours and dosing is q4prn: Denies cp, sob, n/v. Tolerating full liquid diet well. Vitals: Temp: [97.2 ??F (36.2 ??C)-99.9 ??F (37.7 ??C)] Heart Rate: [56-100] Resp: [10-29] BP: (91-127)/(44-71) I/O: I/O last 3 completed shifts: In: 2640 [P.O.:795; I.V.:1845] Out: 2275 [Urine:2275] I/O this shift: In: - Out: 350 [Urine:350] Exam: Well appearing, A&O x3, NAD Neck is soft, flat and nontender Intraorally UPPP sutures are intact, there is mild swelling without bleeding or exudate Lips, gums, teeth intact without lesion. Tongue is soft and mobile. rrr no m/r/g LCTAB, without stridor, stertor or labored breathing Labs/Studies: none A/P: Ms. Lynne is a 60yo who is s/p UPPP for SHANELL, POD#1. She is recovering well from surgery, she is ready for discharge to home. See additional recommendations in discharge summary. * Semaj Marie MD - 10/04/2010 6:59 PM EDT Post op Check: Ms. Lynne is a 60yo who is s/p UPPP for SHANELL. She had no complications during her procedure. S: pt w/ no: SOB, CP, N,V, dizziness, or loss of sensation. pt states pain is 8/10. She reports that pain was well controlled in the PACU but that her meds had not arrived on the floor yet. She has been ambulating, voiding spontaneously, and taking ice and popsickles by mouth(which are comforting). O: Vitals: 37.2 64 11 108/62 100% on 3L NC Ins: 60ml UOP 300ml Constitutional: sitting in bed, eating popsickle, joined by family, in no immediate distress. Eyes: PERRL, ENT: MMM, suture in mouth, no bleeding, some swelling. Uvula removed. Cardiovascular: RRR, no murmurs noted, pulses 2+ radial and post tib Respiratory: lungs CTABL Neuro: CNII- XII grossly in tact. Ms. Lynne is a 60yo who is s/p UPPP for SHANELL. She is doing well in the post op course. It seems her current pain is the result of end of dose from her PACU meds. She is finding comfort with the popsickles and her pain meds were on the way. No concerns at this time. -remaining plan per surgical teams orders. * Maida Walsh RN - 10/04/2010 2:45 PM EDT O2 off for room air trial. Pt complaining of feeling a noise when she breaths. Expiratory wheeze noted that was not there before. documented in this encounter H&P Notes * Antony Ng MD - 10/04/2010 12:09 PM EDT History unchanged since H&P performed Source Note - Antony Ng MD - 10/04/2010 12:08 PM EDT History unchanged since H&P performed * Antony Ng MD - 10/04/2010 12:08 PM EDT History unchanged since H&P performed documented in this encounter Miscellaneous Notes * Miscellaneous - Provider, Scanning - 10/07/2010 8:02 PM EDT * Miscellaneous - Provider, Scanning - 10/07/2010 8:02 PM EDT * Op Note - Antony Ng MD - 10/04/2010 1:29 PM EDT Indications: Patient is a 60yo who presented for evaluation of their SHANELL. She had tried and failed multiple attempts at CPAP therapy. On exam, patient was noted to have a markedly redundant soft palate, elongateduvula and persistent tonsils. The patient was brought to the operating room for a UPPP. Description: After a timeout procedure and induction of general anesthesia, the table was rotated 90 degrees from the anesthesiologist. A McIvor retractor was used to hold the patient's mouth open. The right tonsil was approached first. The mucosa was incised and the tonsil was removed with a bovie cautery. Theposterior tonsillar pillar mucosa was excised with a scissors. Attention was turned to the left tonsil and a similar procedure was performed. The maximum area of collapse in the soft palate was noted and marked with a Bovie. Using a bovie, the mucosa of the soft palate and uvula was incised and the two tonsillar pillars were connected.The anesthesia service was asked to Valsalva the patient to 30 cm and no bleeding was noted. Using interrupted 3-0 Vicryl sutures, the anterior and posterior tonsillar pillars and the nasal and oral portions of the palatal mucosa were sutured. A widely patent nasopharyngeal airway was created. The patient was then returned to the anesthesia service and awakened. She was sent to the PACU for overnight monitoring * OR Attestation - Antony Ng MD - 10/04/2010 1:28 PM EDT I was the attending physician supervising the resident in the above care and I was present with theresident for the entire procedure. * Miscellaneous - Provider, Scanning - 10/04/2010 11:51 AM EDT documented in this encounter Plan of Treatment Not on file documented as of this encounter Procedures Procedure Name Priority Date/Time Associated Diagnosis Comments SURGICAL PATHOLOGY REPORT Routine 2010 1:14 PM EDT SURGICAL PATHOLOGY REPORT Routine 2010 1:14 PM EDT PALATOPHARYNGOPLASTY (UVULOPALATOPHARYNGOPLASTY) (WRVU 9.78) 10/04/2010 12:29 PM EDT SHANELL documented in this encounter Results * Surgical Pathology Report (10/04/2010 1:14 PM EDT) Surgical Pathology Report [id number] ? Location: [facility]; [address] [place] [address] The signing pathologist has (i) examined the relevant preparation(s) for the specimen(s) and (ii) rendered or confirmed the diagnosis(es). . ?Pathology Surgical Pathology Final Report Clinical Information Specimen Submitted: A - Right and left tonsil and uvula Clinical History/Diagnos is: SHANELL Gross Description Labeled/Fixativ e: ? Right and left tonsil and uvula, saline. Quantity/Size: ?Two tonsils, averaging 2.2 x 1.5 x 0.7 cm. Tissue Description: ?? Surfaces are congested, greene-pink with deep, ?crypt-like architecture. ??Also submitted is a ?separate wedge of greene-pink mucosal tissue grossly ?consistent with uvula. Sections/Proces sing: ??Representativ e sections are submitted. (R2) ??aje/PPS Microscopic Description Slides reviewed, microscopic description not recorded. Diagnosis Tonsils (2) lymphoid follicular hyperplasia Uvula 10/07/10 VAM 10/07/10 Verified by: ? Jarvis Crook MD ?Pathologist ?(Electronic Signature) The attending pathologist whose signature appears on this report has reviewed all diagnostic slides and has edited the gross and/or microscopic portion of the report in rendering the final pathologic diagnosis. [facility] 10/04/2010 1:14 PM EDT Antony Ng MD PATHOLOGY/CYTOLO GY ORDERABLES [facility] * SURGICAL PATHOLOGY REPORT (10/04/2010 1:14 PM EDT) Surgical Pathology Report ? [facility] ? Provider: ?? KUMAR, ?Pt. Name: ?? ALLEN LYNNE ?ANTONY ? Acc #: ?[id number] ?Pt. ? Col Date: ?? 10/04/2010 ? /Sex: ?1950,(60 years),Female ? Rec Date: ?? 10/04/2010 ? LOC: ?[facility] ? SURGICAL PATHOLOGY ? ---Pathologic Diagnosis--- ? 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 10/07/10 ? VAM ? 10/07/10 Verified by: ? Ambreen TORRES, Jarvis Mason ? Pathologist ? (Electronic Signature) ? The attending pathologist whose signature appears on this report has ? reviewed all diagnostic slides and has edited the gross and/or ? microscopic portion of the report in rendering the final pathologic ? diagnosis. ? ---Microscopic Description--- ? Slides reviewed, microscopic description not recorded. ? ---Gross Description--- ? Labeled/Fixativ e: ? Right and left tonsil and uvula, saline. ? Quantity/Size: ?Two tonsils, averaging 2.2 x 1.5 x 0.7 cm. ? Tissue Description: ?? Surfaces are congested, greene-pink with deep, ? crypt-like architecture. ??Also submitted is a ? separate wedge of greene-pink mucosal tissue grossly ? consistent with uvula. ? Sections/Proces sing: ??Representativ e sections are submitted. (R2) ??aje/PPS ? ---Clinical Information--- ? Specimen Submitted: ? A - Right and left tonsil and uvula ? Clinical History/Diagnos is: ? SHANELL VILMA SOW 10/04/2010 1:14 PM EDT Antony Ng MD PATHOLOGY/CYTOLO GY ORDERABLES VILMA SOW documented in this encounter Visit Diagnoses Diagnosis SHANELL (obstructive sleep apnea)- Primary Obstructive sleep apnea (adult) (pediatric) documented in this encounter Administered Medications Inactive Administered Medications - up to 3 most recent administrations Medication Order MAR Action Action Date Dose Rate Site acetaminophen (TYLENOL) oral liquid Soln 650 mg 650 mg, Oral, EVERY 4 HOURS PRN, Starting on Thu10/04/10 at 1752, Until 10/05/10 at 1527, Fever, Maximum dose of acetaminophen is 4000 mg from all sources in 24 hours., Routine Given 10/05/2010 11:42 AM EDT 650 mg Given 10/05/2010 7:39 AM EDT 650 mg Given 10/05/2010 3:01 AM EDT 650 mg ceFAZolin (ANCEF) 1g in dextrose 5% 50mL 1,000 mg (1 g), Intravenous, EVERY 8 HOURS, First dose on Thu10/04/10 at 2015, Until Discontinued, Administer over 30 Minutes, Every 8 hours per 2 dose, Recovery (Recovery-Hospital Unit) Given 10/05/2010 12:15 PM EDT 1,000 mg 100 m L/hr Given 10/05/2010 4:15 AM EDT 1,000 mg 100 mL/hr Given 10/04/2010 8:15 PM EDT 1,000 mg 100 mL/hr clonAZEpam (KLONOPIN) tablet 1 mg 1 mg, Oral, NIGHTLY, First dose on Thu10/04/10 at 2100, Until Discontinued, Recovery (Recovery-Hospital Unit), Routine Given 10/04/2010 9:00 PM EDT 1 mg dexamethasone (DECADRON) injection 8 mg 8 mg, Intravenous, ONCE, 1 dose, On 10/05/10 at 1045 Given 10/05/2010 10:45 AM EDT 8 mg dextrose 5% and sodium chloride 0.45% with potassium chloride 20 mEq infusion 1,000 mL, at 100 mL/hr, Intravenous, CONTINUOUS, Starting on Thu10/04/10 at 1430, Until 10/05/10 at 1527, Recovery (Recovery-Hospital Unit) New Bag 10/04/2010 2:30 PM EDT 1,000 mLs 100 mL/hr esomeprazole (NEXIUM) injection 40 mg 40 mg, Intravenous, DAILY, First dose on Thu10/04/10 at 1830, Until Discontinued Given 10/05/2010 8:51 AM EDT 40 mg Given 10/04/2010 6:30 PM EDT 40 mg HYDROmorphone (PF) (DILAUDID) 2 mg/mL injection 0.2-0.4 mg 0.2-0.4 mg, Intravenous, EVERY 5 MIN PRN, Starting on Thu10/04/10 at 1356, Until 10/04/10 at 1709, Pain, For moderate pain give: 0.2 mg every 5 minute prn For severe pain give: 0.4 mg every 5 minutes prn Maximum dose: 4 mg per hour Hold for respiratory rate less than 10 per minute., PACU Recovery, Routine Given 10/04/2010 3:27 PM EDT 0.4 mg Given 10/04/2010 3:13 PM EDT 0.4 mg Given 10/04/2010 3:03 PM EDT 0.4 mg lactated ringers infusion 1,000 mL 1,000 mL, at 100 mL/hr, Intravenous, CONTINUOUS, Starting on Thu10/04/10 at 1830, Until 10/05/10 at 0438 New Bag 10/04/2010 10:32 PM EDT 1,000 mL s 100 mL/hr morphine 2 mg/mL carpuject 1-2 mg 1-2 mg, Intravenous, EVERY 2 HOURS PRN, Starting on Thu10/04/10 at 1752, Until 10/05/10 at 1527, Pain, for SEVERE pain, May repeat once in 30 minutes if pain not relieved., Recovery (Recovery-Hospital Unit), Routine Given 10/04/2010 8:08 PM EDT 2 mg OXYcodone (ROXICODONE) 5 mg/5 mL solution 5-15 mg 5-15 mg, Oral, EVERY 4 HOURS PRN, Starting on Thu10/04/10 at 1752, Until 10/05/10 at 1026, Pain, Routine Given 10/05/2010 7:39 AM EDT 15 mg Given 10/05/2010 3:04 AM EDT 15 mg Given 10/04/2010 11:03 PM EDT 10 mg OXYcodone (ROXICODONE) 5 mg/5 mL solution 5-15 mg 5-15 mg, Oral, EVERY 3 HOURS PRN, Starting on 10/05/10 at 1023, Until 10/05/10 at 1527, Pain, Routine Given 10/05/2010 10:51 AM EDT 15 mg senna-docusate (PERICOLACE) 8.6-50 mg per tablet 1-4 tablet 1-4 tablet, Oral, 2 TIMES DAILY, First dose on Thu10/04/10 at 2100, Until Discontinued, Start with 1 tablet or liquid equivalent orally twice daily and titrate up to achieve: 1. One bowel movement at least every 48 hours, AND 2. Without straining, Recovery (Recovery-Hospital Unit), Routine Given 10/05/2010 8:53 AM EDT 2 tablets Given 10/04/2010 9:00 PM EDT 2 tablets documented in this encounter Active and Recently Administered Medications Times are shown in EDT. Scheduled Medication Order 10/03/2010 10/04/2010 10/05/2010 ceFAZolin (ANCEF) 1g in dextrose 5% 50mL (COMPLETED) 1,000 mg (1 g), Intravenous, ONCE, 1 dose, On Thu10/04/10 at 1245, Administer over 30 Minutes, Redose after 4 hours., Day of Surgery (Day of Procedure) 1230 (Due)1244 (Given - Provider: Isabel Guillen) ceFAZolin (ANCEF) 1g in dextrose 5% 50mL (CANCELED) 1,000 mg (1 g), Intravenous, EVERY 8 HOURS, First dose on Thu10/04/10 at 2015, Until Discontinued, Administer over 30 Minutes, Every 8 hours per 2 dose, Recovery (Recovery-Hospital Unit) 2014 (Given - Provider: Delano Sylvester RN) 0415 (Given - Provider: Delano Sylvester RN)1215 (Given - Provider: Lila Grider RN) clonAZEpam (KLONOPIN) tablet 1 mg (CANCELED) 1 mg, Oral, NIGHTLY, First dose on Thu10/04/10 at 2100, Until Discontinued, Recovery (Recovery-Hospital Unit), Routine 2099 (Given - Provider: Delano Sylvester RN) dexamethasone (DECADRON) injection 8 mg (COMPLETED) 8 mg, Intravenous, ONCE, 1 dose, On Thu10/05/10 at 1045 1045 (Given - Provid er: Lila Grider RN) esomeprazole (NEXIUM) injection 40 mg (CANCELED) 40 mg, Intravenous, DAILY, First dose on Thu10/04/10 at 1830, Until Discontinued 1830 (Given - Provider: Delano Sylvester RN) 0851 (Given - Provider: Lila Grider RN) senna-docusate (PERICOLACE) 8.6-50 mg per tablet 1-4 tablet (CANCELED) 1-4 tablet, Oral, 2 TIMES DAILY, First dose on Thu10/04/10 at 2100, Until Discontinued, Start with 1 tablet or liquid equivalent orally twice daily and titrate up to achieve: 1. One bowel movement at least every 48 hours, AND 2. Without straining, Recovery (Recovery-Hospital Unit), Routine 2100 (Given - Provider: Delano Sylvester RN) 0853 (Given - Provider: Lila Grider RN) Continuous Medication Order 10/03/2010 10/04/2010 10/05/2010 dextrose 5% and sodium chloride 0.45% with potassium chloride 20 mEq infusion (CANCELED) 1,000 mL, at 100 mL/hr, Intravenous, CONTINUOUS, Starting on Thu10/04/10 at 1430, Until 10/05/10 at 1527, Recovery (Recovery-Hospital Unit) 1430 (New Bag - Provider: Meagan Walsh RN) lactated ringers infusion 1,000 mL 1,000 mL, at 100 mL/hr, Intravenous, CONTINUOUS, Starting on Thu10/04/10 at 1830, Until 10/05/10 at 0438 1830 (Not Given - Provider: Delano Sylvester RN - Reason: Contraindicated)2232 (New Bag - Provider: Delano Sylvester RN) PRN Medication Order 10/03/2010 10/04/2010 10/05/2010 acetaminophen (TYLENOL) oral liquid Soln 650 mg 650 mg, Oral, EVERY 4 HOURS PRN, Starting on Thu10/04/10 at 1752, Until 10/05/10 at 1527, Fever, Maximum dose of acetaminophen is 4000 mg from all sources in 24 hours., Routine 2108 (Given - Provider: Delano Sylvester RN) 0301 (Given - Provider: Delano Sylvester RN)0739 (Given - Provider: Lila Grider, IVAN)1142 (Given - Provider: Lila Grider RN) HYDROmorphone (PF) (DILAUDID) 2 mg/mL injection 0.2-0.4 mg (CANCELED) 0.2-0.4 mg, Intravenous, EVERY 5 MIN PRN, Starting on Thu10/04/10 at 1356, Until Thu10/04/10 at 1709, Pain, For moderate pain give: 0.2 mg every 5 minute prn For severe pain give: 0.4 mg every 5 minutes prn Maximum dose: 4 mg per hour Hold for respiratory rate less than 10 per minute., PACU Recovery, Routine 1440 (Given - Provider: Maida Walsh RN)1451 (Given - Provider: Maida Walsh RN)1503 (Given - Provider: Maida Walsh RN)1513 (Given - Provider: Maida Walsh RN)1527 (Given - Provider: Maida Walsh RN) lidocaine-epiNEPHrine 1 %-1:100,000 injection (COMPLETED) ONCE PRN, 1 dose, Starting on Thu10/04/10 at 1300, Until Thu10/04/10 at 1300, Intra-Operative (Intra-Procedure), Routine 1300 (Given - Provider: Juana Banda MD) morphine 2 mg/mL carpuject 1-2 mg (CANCELED) 1-2 mg, Intravenous, EVERY 2 HOURS PRN, Starting on Thu10/04/10 at 1752, Until 10/05/10 at 1527, Pain, for SEVERE pain, May repeat once in 30 minutes if pain not relieved., Recovery (Recovery-Hospital Unit), Routine 2007 (Given - Provider: Delano Sylvester RN) OXYcodone (ROXICODONE) 5 mg/5 mL solution 5-15 mg (CANCELED) 5-15 mg, Oral, EVERY 4 HOURS PRN, Starting on Thu10/04/10 at 1752, Until 10/05/10 at 1026, Pain, Routine 1844 (Given - Provider: Kaley Naik RN)2108 (Given - Provider: Delano Sylvester RN)2303 (Given - Provider: Delano Sylvester RN) 0304 (Given - Provider: Delano Sylvester RN)0739 (Given - Provider: Lila Grider RN) OXYcodone (ROXICODONE) 5 mg/5 mL solution 5-15 mg 5-15 mg, Oral, EVERY 3 HOURS PRN, Starting on 10/05/10 at 1023, Until 10/05/10 at 1527, Pain, Routine 1051 (Given - Provid er: Lila Grider RN - Comment: New order; q 3 hrs instead of 4 rs.) documented in this encounter Care Teams Stitch Bonding Machine Tender Helper Relationship Specialty Start Date End Date Agustina Gold MD [address] [place] [address] PCP - General 05/14/10 documented as of this encounter
--- OUTSIDE RECORDS SUMMARY | 2024-02-04 13:58 | XMS_ITS | Encounter Summary ---
[place] [address] Care Team Providers Care Dry Transfer Man Name Role Phone Agustina Gold MD Primary Care Provider [phone] Reason for Referral * Diagnostic Test (Routine) - Closed Specialty Diagnoses / Procedures Referred By Contac t Referred To Contact Radiology Diagnoses Lumbar spondylosis Closed compression fracture of body of L1 vertebra Procedures MRI Lumbar Spine wo Contrast (Generic) Calixto Fowler PA [facility] [place] [address] [place] [address] Referral ID Status Reason Start Date Expiration Date V isits Requested Visits Authorized [id number] Closed Specialty Service Requested 08/12/2023 02/09/2025 1 1 Reason for Visit * Diagnostic Test (Routine) - Closed Specialty Diagnoses / Procedures Referred By Contac t Referred To Contact Radiology Diagnoses Lumbar spondylosis Closed compression fracture of body of L1 vertebra Procedures MRI Lumbar Spine wo Contrast (Generic) Calixto Fowler PA [facility] [place] [address] [place] [address] Referral ID Status Reason Start Date Expiration Date V isits Requested Visits Authorized [id number] Closed Specialty Service Requested 08/12/2023 02/09/2025 1 1 Encounter Details Date Type Department Care Team (Latest Contact Info) Description 09/02/2023 1:09 PM EDT - 09/02/2023 11:59 PM EDT Hospital Encounter MRI at [facility] [place] [address] Tawanda Gan MD [facility] [place] [address] Lumbar spondylosis; Closed compression fracture of body of L1 vertebra Discharge Disposition: Home Social History Tobacco Use [...] on file documented as of this encounter Medications at Time of Discharge Medication Sig Dispensed Refills Start Date End Date hydroCHLOROthiazide (Hydrodiuril) 12.5 mg tablet Take 12.5 mg by mouth every morning. 07/31/2023 methocarbamoL (Robaxin) 500 mg tablet Take 500 mg by mouth as needed. 06/25/2023 cholecalciferol, Vitamin D3, (Vitamin D3) 50 mcg (2,000 unit) tablet Take 1 tablet by mouth Daily at Noon. 06/19/2023 Calcium Carbonate 600 mg calcium (1,500 mg) Tablet Take 1 tablet by mouth Daily at Noon. 06/19/2023 oxyCODONE (Roxicodone) 5 mg tablet Take 5 mg by mouth 4 times daily. 07/23/2023 cyanocobalamin, vitamin B-12, (VITAMIN B-12 ORAL) Take by mouth daily. aspirin 81 mg capsule Take 81 mg by mouth daily. rosuvastatin (Crestor) 5 mg tablet Take 5 mg by mouth daily. clonazePAM (KLONOPIN) 1 mg Tablet Take 1 tablet by mouth daily. 04/13/2014 DULoxetine (CYMBALTA) 60 mg Capsule, Delayed Release(E.C.) Take 1 capsule by mouth daily. 04/18/2014 gabapentin (NEURONTIN) 300 mg Capsule Take 2 capsules by mouth daily. 05/01/2014 ibuprofen (ADVIL;MOTRIN) 800 mg Tablet Take 1 tablet by mouth as needed. 05/04/2014 levothyroxine (SYNTHROID) 50 mcg Tablet Take 1 tablet by mouth daily. 05/01/2014 ergocalciferol (ERGOCALCIFEROL) 50,000 unit Capsule Take 1 capsule by mouth every 7 days. 04/25/2014 09/09/2023 simvastatin (ZOCOR) 10 mg Tablet Take 1 tablet by mouth daily. 05/05/2014 09/09/2023 documented as of this encounter Plan of Treatment Not on file documented as of this encounter Procedures Procedure Name Priority Date/Time Associated Diagnosis Comments MRI LUMBAR SPINE WITHOUT CONTRAST Routine 09/02/2023 1:50 PM EDT Lumbar spondylosis Closed compression fracture of body of L1 vertebra documented in this encounter Results * MRI Lumbar Spine wo Contrast (Generic) (09/02/2023 1:50 PM EDT) Anatomical Region Laterality Modality L-spine Magnetic Resonan ce Impressions 09/03/2023 2:06 PM EDT 1. ??Mild lumbar spine degenerative changes as above. 2. ??Healed L1 fracture. Comment: The following findings are so common in people without low back pain that while we report their presence, they must be interpreted with caution and in context of the clinical situation (Reference- Florindavik Et Al, Spine 2001). Findings: (Prevalence in patients without low back pain), disc degeneration (decreased T2 signal, height loss, bulge) (91%), disc T2-signal loss (83%), disc height loss (56%), disc bulge (64%), disc protrusion (32%), annular fissure (38%). Thank you for letting us participate in the care of this patient. ??If you are a health care provider and have any questions regarding this report, please contact the number below. ??For patients who have questions please contact the health customer care coordinator that requested your imaging first. ? Narrative 09/03/2023 2:06 PM EDT EXAMINATION: MRI LUMBAR SPINE WO CONTRAST (GENERIC) CLINICAL HISTORY: Low back pain, symptoms persist with > 6wks conservative treatment; low back pain, unresponsive to PT and at home exercises. History of L1 compression fracture. Osteopenia. Assess interval change. M47.816, Spondylosis without myelopathy or radiculopathy, lumbar region - S32.010A, Wedge compression fracture of first lumbar vertebra, initial encounter for closed fracture TECHNIQUE: MRI of the lumbar spine performed without intravenous contrast administration. COMPARISON: MR 01/24/2022 FINDINGS: There is a fracture deformity at the superior endplate of L1 with mild height loss. There is no associated marrow edema. Overall alignment is otherwise unremarkable. The conus terminates normally at L1. Visualized retroperitoneal structures are unremarkable. Findings at specific levels: L1-L2: No canal or foraminal stenosis. L2-L3: There is slight disc bulging minimally indenting the ventral thecal sac. With minimal caudal neuroforaminal narrowing. L3-L4: Disc bulge mildly indents ventral thecal sac. There is mild caudal neuroforaminal narrowing bilaterally. L4-5: Disc bulge and facet arthropathy contributes to mild caudal neuroforaminal narrowing slightly worse the right. No canal stenosis. L5-S1: No canal or foraminal stenosis. Procedure Note Michael Seay MD - 09/03/2023 EXAMINATION: MRI LUMBAR SPINE WO CONTRAST (GENERIC) CLINICAL HISTORY: Low back pain, symptoms persist with > 6wksconservative treatment; low back pain, unresponsive to PT and at home exercises.History of L1 compression fracture. Osteopenia. Assess interval change. M47.816, Spondylosis without myelopathy or radiculopathy, lumbar region- S32.010A, Wedge compression fracture of first lumbar vertebra, initialencounter for closed fracture TECHNIQUE: MRI of the lumbar spine performed without intravenous contrastadministration. COMPARISON: MR 01/24/2022 FINDINGS: There is a fracture deformity at the superior endplate of L1 with mildheight loss. There is no associated marrow edema. Overall alignment isotherwise unremarkable. The conus terminates normally at L1. Visualizedretroperitoneal structures are unremarkable. Findings at specific levels: L1-L2: No canal or foraminal stenosis. L2-L3: There is slight disc bulging minimally indenting the ventral thecalsac. With minimal caudal neuroforaminal narrowing. L3-L4: Disc bulge mildly indents ventral thecal sac. There is mildcaudal neuroforaminal narrowing bilaterally. L4-5: Disc bulge and facet arthropathy contributes to mild caudalneuroforaminal narrowing slightly worse the right. No canal stenosis. L5-S1: No canal or foraminal stenosis. IMPRESSION 1. Mild lumbar spine degenerative changes as above. 2. Healed L1 fracture. Comment: The following findings are so common in people without low backpain that while we report their presence, they must be interpreted with cautionand in context of the clinical situation (Reference- Florindavik Et Al, [id number]). Findings: (Prevalence in patients without low back pain), discdegeneration (decreased T2 signal, height loss, bulge) (91%), disc T2-signal loss(83%), disc height loss (56%), disc bulge (64%), disc protrusion (32%), annularfissure (38%). Thank you for letting us participate in the care of this patient. If youare a health care provider and have any questions regarding this report,please contact the number below. For patients who have questions please contactthe health customer care coordinator that requested your imaging first. Tawanda Gan MD IMG MRI ORDERABLES documented in this encounter Visit Diagnoses Diagnosis Lumbar spondylosis Lumbosacral spondylosis without myelopathy Closed compression fracture of body of L1 vertebra documented in this encounter Care Teams Dry Transfer Man Relationship Specialty Start Date End Date Agustina Gold MD [address] [place] [address] PCP - General 05/14/10 documented as of this encounter
--- OUTSIDE RECORDS SUMMARY | 2024-02-04 13:58 | XMS_ITS | Encounter Summary ---
[facility] [place] [address] Care Team Providers Care Historiographer Name Role Phone Agustina Gold MD Primary Care Provider [phone] Encounter Details Date Type Department Care Team (Late st Contact Info) Description 03/09/2014 Orders Only Radiology [facility] [place] [id number] Agustina Gold MD [address] [place] [address] Social History Tobacco Use Types Packs/Day Years [...] Procedure Name Priority Date/Time Associated Diagnosis Comments FILM LIBRARY STORAGE ONLY MR HEAD Routine 03/09/2014 2:40 PM EDT documented in this encounter Results * Film Library- Storage only MR Head (03/09/2014 2:40 PM EDT) Anatomical Region Laterality Modality Other 03/09/2014 2:40 PM EDT Narrative 04/03/2014 2:40 PM EDT This is a Non-reportable exam Procedure Note ANUM, UNSIGNED REPORT - 04/03/2014 This is a Non-reportable exam Agustina Gold MD [facility] FILM LIBRARY ORD ERABLES documented in this encounter Visit Diagnoses Not on filedocumented in this encounter Care Teams Historiographer Relationship Specialty Start Date End Date Agustina Gold MD [address] [place] [address] PCP - General 05/14/10 documented as of this encounter
--- OUTSIDE RECORDS SUMMARY | 2024-02-04 13:58 | XMS_ITS | Encounter Summary ---
Author Organization [facility] Address [facility] [place] [address] Care Team Providers Care Glue Bone Drier Name Role Phone Agustina Gold MD Primary Care Provider [phone] Encounter Details Date Type Department Care Team (Late st Contact Info) Description 04/20/2021 7:20 PM EDT Telehealth notes only TeleHealth [facility] [place] [address] Telehealth, Neurology None Social History Tobacco Use Types Packs/Day Years [...] on file documented as of this encounter Miscellaneous Notes * Consult Note - Skyler Kaplan MD - 04/20/2021 7:20 PM EDT TELENEUROLOGY CONSULT NOTE Jvdwhmoyt-YodepwkyrAwuk-Vusbmjrck Date 04/20/21 Patient: Virginia Lynne MRN; [id number] : 1950 Gender:female Requesting Location: [facility] Admitted/Observation: Yes Arrival Date: 04/20/2021 Arrival Time:18.13. Requesting Physician: Dr. Del Cid. Diagnosis/Reason for Consult: TIA/Stroke follow-up Consent obtained from: Patient. Time consult began: 01.16 HISTORY OF PRESENTING COMPLAINTS: She says all of her sudden she had difficulty with walking and an hour later her speech was off. 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 She felt like tripping over herown leg. She sat down. After a while her speech was affected. She feels speech is improving. She has history of chronic neck and back pain. PMHx: Past Medical History: Diagnosis Date ??? Cervical arthritis C4 and C5 ??? Chronic neck pain ??? Chronic pain 2009 Neck,back and hip pain ??? HLD (hyperlipidemia) ??? SHANELL (obstructive sleep apnea) CPAP, dental device ??? Panic disorder Past Surgical History: Procedure Laterality Date ??? COSMETIC SURGERY 1991 Blepharoplasty ??? CRANIO/MAXILLOFACIAL SURG UNLISTED 1973 [place] teeth extraction ??? GENITAL SURG PROC, FEMALE UNLISTED 1992 Hysterectomy ??? PALATOPHAYNGOPLASTY 10/04/2010 PALATOPHARYNGOPLASTY (UVULOPALATOPHARYNGOPLASTY) performed by ANTONY HEATH at [facility] MAIN OR Patient Conditions: Family History: Family History Problem Relation Age of Onset ??? Breast Cancer Mother 55 ??? High Cholesterol Father ??? Stroke Father ??? Breast Cancer Unknown Grandmother Social History: reports that she quit smoking about 10 years ago. Her smoking use included cigarettes. She has a 45.00 pack-year smoking history. She has never used smokeless tobacco. She reports that she does not drink alcohol and does not use drugs. No flowsheet data found. Medications: Current Outpatient Medications on File Prior to Visit Medication Sig Dispense Refill ??? clonazePAM (KLONOPIN) 1 mg Tablet Take 1 tablet by mouth daily. ??? DULoxetine (CYMBALTA) 60 mg Capsule, Delayed Release(E.C.) Take 1 capsule by mouth daily. ??? ergocalciferol (ERGOCALCIFEROL) 50,000 unit Capsule Take 1 capsule by mouth every 7 days. ??? gabapentin (NEURONTIN) 300 mg Capsule Take 2 capsules by mouth daily. ??? ibuprofen (ADVIL;MOTRIN) 800 mg Tablet Take 1 tablet by mouth as needed. ??? levothyroxine (SYNTHROID) 50 mcg Tablet Take 1 tablet by mouth daily. ??? simvastatin (ZOCOR) 10 mg Tablet Take 1 tablet by mouth daily. ??? oxyCODONE 10 mg Tablet Take 10 mg by mouth as needed. No current facility-administered medications on file prior to visit. Current medications: See list. Is patient currently on anticoagulants?: No Allergies: Allergies Allergen Reactions ??? Atorvastatin Calcium Leg Cramps Allergies: PHYSICAL EXAMINATION Vitals: There were no vitals taken for this visit. General Examination: Appearance: alert, no distress Respiratory: Normal respiration. Extremity: appears normal Skin: appears normal. Neurological Examination o Higher functions: - Speech: fluent, mild dysarthria - Alert and oriented. - Able to read without difficulty o Cranial Nerves - II-XII: Pupils bilaterally equal and symmetric conjugate gaze, No ptosis. EOMI. No facial droop. o Motor - No drift or weakness in upper or lower extremities. o Sensory - Appreciates light touch equally bilaterally. o Coordination: - No ataxia RI Stroke Scale: Yes NIH STROKE SCALE 1A. Level of Consciousness 0 1B. LOC Questions 0 1C. LOC Commands 0 2. Best Gaze 0 3. Visual 0 4. Facial Palsy 0 5. Motor Arm Left Arm 0 Right Arm 0 6. Motor Leg Left Leg 0 Right Leg 0 7. Limb Ataxia 0 8. Sensory 0 9. Best Language 0 10. Dysarthria 1 11. Extinction and Inattention (formerly neglect) 0 LABS/IMAGING: CT Head: Negative per report. ASSESSMENT: 70 Y F with history of hyperlipidemia, DJD, daily alcohol use spine coming to ED with complaints of difficulty with walking and some speech difficulties. 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 Today symptoms started abruptly while at work. Has mild dysarthria. No weaknessor sensory deficits. IMPRESSION: Dysarthria, Ataxia. To r/o stroke. PLAN/RECOMMENDATIONS: ??? She has history of cerebellar ataxia but current worsening could be related to a new stroke or TIA. ??? Given minimal deficits not a tPA candidate. ??? Recommend CTA head and neck to r/o LVO. ??? Aspirin 81 daily. PT/OT. ??? MRI Brain when possible. Observation Skyler Kaplan MD Department of Neurology [facility] documented in this encounter Plan of Treatment Not on file documented as of this encounter Visit Diagnoses Not on filedocumented in this encounter Care Teams Glue Bone Drier Relationship Specialty Start Date End Date Agustina Gold MD [address] [place] [address] PCP - General 05/14/10 documented as of this encounter
--- OUTSIDE RECORDS SUMMARY | 2024-02-04 13:58 | XMS_ITS | Encounter Summary ---
Author Organization [facility] Address [facility] [place] [address] Care Team Providers Care Product/Device Technologist Name Role Phone Agustina Gold MD Primary Care Provider [phone] Reason for Referral * Consultation (Routine) - Closed Specialty Diagnoses / Procedures Referred By Prakash burnett Referred To Contact Dental Skin Washer Diagnoses SHANELL (obstructive sleep apnea) Fermin Moreno MD [facility] [place] [address] Dexter Frankel DMD Referral ID Status Reason Start Date Expiration Date V isits Requested Visits Authorized [id number] Closed Consult, Test & Treat 07/10/2011 01/06/2012 1 1 Reason for Visit * Reason Comments Obstructive Sleep Apnea Encounter Details Date Type Department Care Team (Late st Contact Info) Description 07/10/2011 12:50 PM EST Office [place] [address] Fermin Moreno MD [facility] [place] [address] SHANELL (obstructive sleep apnea) (Primary Dx) Social History Tobacco Use Types Packs/Day Years Used Date Smoking Tobacco: Former Sex and Gender Information Value Date Recorded Sex Assigned at Not on file Gender Identity Not on file Sexual Orientation Not on file documented as of this encounter Last Filed Vital Signs Vital Sign Reading Time Taken Comments Blood Pressure 102/66 07/10/2011 1:06 PM EST Pulse 71 07/10/2011 1:06 PM EST Temperature - - Respiratory Rate - - Oxygen Saturation - - Inhaled Oxygen Concentration - - Weight 70.1 kg (154 lb 9.6 oz) 07/10/2011 1:06 P M EST Height 165.1 cm (5' 5) 07/10/2011 1:06 PM EST Body Mass Index 25.73 07/10/2011 1:06 PM EST documented in this encounter Progress Notes * Yaya Pascual MD - 07/11/2011 8:13 AM EST I have seen the patient and reviewed the fellow 's above history and I agree with the details as written. The assessment and plan were formulated in discussion with me and I agree with them as documented with the following exceptions and/or modifications: * Fermin Moreno MD - 07/10/2011 1:30 PM EST Sleep Medicine Follow-Up Note HPI: Virginia Lynne is a 60 y.o. female seen for follow-up of obstructive sleep apnea. No mask fit issues, denies pressure intolerance. Snoring remains despite UPPP and wants to be off CPAP, wants to explore a dental device. Symptom Improvement?: Nocturnal sleep quality improved: denies Daytime symptoms improved: denies Involuntary Dozing: denies Driving: denies ROS: positives in bold, otherwise negative CON: weight change: gained 10 lbs, but quit smoking ENT: nasal obstruction: denies : nocturia: drinks a lot of diet coke, 1 x PSYCH: depression/anxiety symptoms: denies Past Medical History Diagnosis Date ??? SHANELL (obstructive sleep apnea) ??? Cervical arthritis ??? Panic disorder ??? HLD (hyperlipidemia) ??? Chronic neck pain Patient Active Problem List Diagnoses ??? SHANELL (obstructive sleep apnea) Moderate AHI 16.4, placed on auto Cpap 12-30, hated CPAP and was sent to ENT for surgical evaluation. Had UPPP and was seen in f/u 10/30 was still snoring but symptomatically improved. PE:Filed Vitals: 07/10/11 1306 BP: 102/66 Pulse: 71 Body mass index is 25.73 kg/(m^2). General: pleasant 60 y.o. female, no distress HEENT: atraumatic, MMM Psyche: affect appropriate Lungs: normal effort Neuro: normal gait, no tremor I personally reviewed the PAP compliance card: Dates:04/08/2011 to 07/04/2011 but didn't really start using until Pressure: auto 7-11 % days used: 80.7 Average usage on days used: 4 hours and 59 min % Night s used 4 or more hours : 54.5% Average residual AHI: 1.2 Leak: 2 minutes 17 seconds Assessment: Virginia Lynne is a 60 y.o. female with seen in follow-up for obstructive sleep apnea. Moderate AHI 16.4, placed on auto Cpap 12-30, hated CPAP and was sent to ENT for surgical evaluation. Had UPPP and was seen in f/u 10/30 was still snoring but symptomatically improved. Over the year her snoring continued and her symptoms of somnolence returned. She resumed the CPAP in April and her somnolence resolved, however she hates using the machine and wants a dental device, I am happy to write this referral for her. She has gained around 11 lbs since her last study, and had a surgery, though I am doubtful based on her symptoms that her sleep apnea has changed dramatically. Recommendations -referral for dental device -repeat PSG to titrate dental device once Dr. Frankel has optimized therapy Diagnostic Codes: 327.23; Obstructive sleep apnea Time spent face to face: 30 minutes Time spent devoted to counseling and discussion: 20 minutes This case was supervised by Dr. Pascual who saw the patient and participated in the formulation anddecision making. documented in this encounter Plan of Treatment Scheduled Referrals Name Type Priority Associated Diagnoses Orde r Schedule REFERRAL TO DENTISTRY Outpatient Referral Routine SHANELL (obstructive sleep apnea) Ordered: 07/10/2011 documented as of this encounter Visit Diagnoses Diagnosis SHANELL (obstructive sleep apnea)- Primary Obstructive sleep apnea (adult) (pediatric) documented in this encounter Care Teams Product/Device Technologist Relationship Specialty Start Date End Date Agustina Gold MD [address] [place] [address] PCP - General 05/14/10 documented as of this encounter
--- OUTSIDE RECORDS SUMMARY | 2024-02-04 13:58 | XMS_ITS | Encounter Summary ---
Author Organization [facility] [place] [address] Care Team Providers Care Property Insurance Claims Examiner Name Role Phone Agustina Gold MD Primary Care Provider [phone] Reason for Referral * Diagnostic Test (Routine) - Closed Specialty Diagnoses / Procedures Referred By Contac t Referred To Contact Radiology Diagnoses Lumbar spondylosis Closed compression fracture of body of L1 vertebra Procedures MRI Lumbar Spine wo Contrast (Generic) Calixto Fowler PA [facility] [place] [address] [place] [address] Referral ID Status Reason Start Date Expiration Date V isits Requested Visits Authorized [id number] Closed Specialty Service Requested 08/12/2023 02/09/2025 1 1 Reason for Visit * Reason Comments Follow-up F/u back pain Encounter Details Date Type Department Care Team (Late st Contact Info) Description 08/12/2023 11:30 AM EST Office Visit [facility] [place] [address] Calixto Fowler PA [facility] [place] [address] Lumbar spondylosis; Closed compression fracture of body of L1 vertebra Social History Tobacco Use Types Packs/Day Years Used Date Smoking Tobacco: Former Cigarettes 1.5 30 0 09/20/1980 - 09/20/2010 Smokeless Tobacco: Never Tobacco Cessation:Counseling Given: Not Answered Alcohol Use Standard Drinks/Week Comments No 0 (1 standard drink = 0.6 oz pur e alcohol) Sex and Gender Information Value Date Recorded Sex Assigned at Not on file Gender Identity Not on file Sexual Orientation Not on file documented as of this encounter Last Filed Vital Signs Vital Sign Reading Time Taken Comments Blood Pressure - - Pulse - - Temperature - - Respiratory Rate - - Oxygen Saturation - - Inhaled Oxygen Concentration - - Weight 72.6 kg (160 lb) 08/12/2023 11:07 AM EST Height 157.5 cm (5' 2) 08/12/2023 11:07 AM EST Body Mass Index 29.26 08/12/2023 11:07 AM EST documented in this encounter Progress Notes * Calixto Fowler PA - 08/12/2023 11:30 AM EST Images from the original note were not included. [facility] Calixto Fowler PA-C Dear Colleagues, I had the pleasure of seeing this patient at the [facility] for evaluation. Chief Complaint: Back pain HPI: Virginia is a 73 year old female who presents to clinic for follow up from back pain which began aftersustaining L1 compression fracturealmost 2 years ago. She was last seen by me on 06/10/23 where plan was to start with conservative measures beginning with activity modification, symptomatic management and home exercises. Follow up was planned for 2 months. She returns today stating that there has been no significant change. She continues to have severe back pain. She is quite limited in her activities as any time she is up and about her pain increases to neat 10/10. There are times when resting when her pain is absent. She has not had any recent imaging and has been unresponsive to PT and home exercises. She continues to take gabapentin, oxycodone, and methocarbamol but pain continues to be quite problematic. No new radiating symptoms. No red flag symptoms. Medications and allergies reviewed and can be found in eDH Review of systems: As above in HPI Physical exam: Resting in no acute distress. Ambulates without assistive device. Slight difficulty rising from seated position. Tenderness midline and left paraspinals around thoracolumbar junction. 5/5 strength inbilateral lower extremities. Sensation to light touch intact throughout bilateral lower extremities. Imaging: No new dedicated imaging of the spine. Assessment Diagnosis: -Lumbar spondylosis -L1 compression fracture -Back pain Virginia is a 73 year old female who presents to clinic for follow up of back pain. She has not had any improvement with conservative measures. She continues to be quite limited due to her symptoms. We discussed role of MRI to further assess possible causes of her symptoms. She does have degenerative changes throughout the lumbar as well as known L1 compression deformity which are more likely the cause of her symptoms opposed to neural compression. We will discuss next steps based on MRI results. Plan: 1) MRI lumbar spine 2) Follow up after imaging for further discussion Thank you for letting me participate in this patient's care. Sincerely, Calixto Fowler PA-C [facility] documented in this encounter Plan of Treatment Not on file documented as of this encounter Results * MRI Lumbar Spine [...] in context of the clinical situation (Reference- Lebronk Et Al, Spine 2001). Findings: (Prevalence in [...] who have questions please contact the health career services assistant that requested your imaging first. ? Electronically signed by: Michael Seay MD, [facility] ([phone]), at 09/03/2023 2:06 PM Narrative 09/03/2023 2:06 PM EDT EXAMINATION: MRI [...] the clinical situation (Reference- Florindavik Et Al, Hozre3603). Findings: (Prevalence in patients without low back [...] patients who have questions please contactthe health career services assistant that requested your imaging first. Electronically signed by: Michael eSay MD, [facility]([phone]), at 09/03/2023 2:06 PM Tawanda Gan MD IMG MRI ORDERABLES documented in this encounter Visit Diagnoses Diagnosis Lumbar spondylosis Lumbosacral spondylosis without myelopathy Closed compression fracture of body of L1 vertebra Lumbar spondylosis Lumbosacral spondylosis without myelopathy Closed compression fracture of body of L1 vertebra documented in this encounter Care Teams Property Insurance Claims Examiner Relationship Specialty Start Date End Date Agustina Gold MD [address] [place] [address] PCP - General 05/14/10 documented as of this encounter
--- OUTSIDE RECORDS SUMMARY | 2024-02-04 13:58 | XMS_ITS | Encounter Summary ---
Author Organization [facility] [address] Care Team Providers Care Pharmaceutical Service Representative Name Role Phone Agustina Gold MD Primary Care Provider [phone] Reason for Visit * Reason Comments Gait Problem Referral Encounter Details Date Type Department Care Team (Late st Contact Info) Description 05/09/2014 12:45 PM EST [place] [address] [facility] [place] [address] Abnormality of gait and mobility; Ataxia; Diffuse pain Discharge Disposition: Home Social History Tobacco Use [...] Sign Reading Time Taken Comments Blood Pressure 116/68 05/09/2014 12:52 PM EST Pulse 68 05/09/2014 12:52 PM EST Temperature - - Respiratory Rate - - Oxygen Saturation - - Inhaled Oxygen Concentration - - Weight 72.8 kg (160 lb 6.4 oz) 05/09/2014 12:52 PM EST Height 162.6 cm (5' 4) 05/09/2014 12:52 PM EST Body Mass Index 27.53 05/09/2014 12:52 PM EST documented in this encounter Progress Notes * Peggy Thompson, DO - 05/09/2014 1:16 PM EST Movement Disorders Consultation Note [facility] Reason for Consultation It is my pleasure to perform a neurologic consultation at the request of Dr. Martin, on Virginia Medina, who is a 63 y.o. yr old right handed female for evaluation of balance and gait difficulties.I reviewed her medical records provided. HISTORY History of Present Illness Virginia is a 63 yr old woman who said that beginning in the mid she began to have some balanceand walking difficulties. She didn't start falling, however, until the past few years. She fell andbroke her left fibula in 2012 and she also reports that she lost her balance 7 years ago and fell on her buttocks and fractured the coccyx. She said that any uneven surface seems to throw off her balance. Virginia admits that she began drinking in the early because of relationship problems with her first . She said that she was drinking approximately 3 glasses of wine a night, and was doing this for at least a 10 year period of time. She stopped drinking alcohol in the late , afterher divorce with him. She said that she never really considered herself an alcoholic, but thought that she was headed in that direction if she did not separate from him. Besides the balance issues,she has diffuse pain in her joints, and also complains of paraesthesias in the hands and feet, and right leg. She did have an EMG/NCS recently by Dr. Martin b/c of these symptoms as well as hyporeflexia, however the NCS's were normal. Because of the diffuse pain that she is complaining about, she has been on oxycodone, 10 mg when necessary as well as gabapentin, and Cymbalta. She feels that her pain is still not controlled well. She did have an MRI of the brain, which was reportedly normal, however Dr. Martin did think that there was cerebellar vermis atrophy. Past Medical History Past Medical History Diagnosis Date ??? SHANELL (obstructive sleep apnea) CPAP, dental device ??? Cervical arthritis C4 and C5 ??? Panic disorder ??? HLD (hyperlipidemia) ??? Chronic neck pain ??? Chronic pain 2009 Neck,back and hip pain Past Surgical History Past Surgical History Procedure Laterality Date ??? Palatophayngoplasty 10/04/2010 PALATOPHARYNGOPLASTY (UVULOPALATOPHARYNGOPLASTY) performed by ANTONY HEATH at [facility] MAIN OR ??? Cosmetic surgery 1991 Blepharoplasty ??? Genital surg proc, female unlisted 1992 Hysterectomy ??? Cranio/maxillofacial surg unlisted 1973 [place] teeth extraction Current Medications See updated medication list below. Medications 05/09/14 1315 Medication Sig Taking? clonazePAM (KLONOPIN) 1 mg Tablet Take 1 tablet by mouth daily. Yes DULoxetine (CYMBALTA) 60 mg Capsule, Delayed Release(E.C.) Take 1 capsule by mouth daily. Yes ergocalciferol (ERGOCALCIFEROL) 50,000 unit Capsule Take 1 capsule by mouth every 7 days. Yes gabapentin (NEURONTIN) 300 mg Capsule Take 2 capsules by mouth daily. Yes ibuprofen (ADVIL;MOTRIN) 800 mg Tablet Take 1 tablet by mouth as needed. Yes levothyroxine (SYNTHROID) 50 mcg Tablet Take 1 tablet by mouth daily. Yes simvastatin (ZOCOR) 10 mg Tablet Take 1 tablet by mouth daily. Yes oxyCODONE 10 mg Tablet Take 10 mg by mouth as needed. Yes Drug Allergies and Adverse Drug Reactions See updated allergy/ADR list below. Atorvastatin calcium Family History Family History Problem Relation Age of Onset ??? Breast Cancer Mother 55 ??? High Cholesterol Father ??? Stroke Father ??? Breast Cancer Grandmother Social History History Social History ??? Marital Status: Spouse Name: N/A Number of Children: N/A ??? Years of Education: N/A Social History Main Topics ??? Smoking status: Former Smoker -- 1.50 packs/day for 30 years Types: Cigarettes Quit date: 09/20/2010 ??? Smokeless tobacco: Never Used ??? Alcohol Use: No ??? Drug Use: No ??? Sexual Activity: None Other Topics Concern ??? Exercise: Patient Reported Yes Walking ??? Abuse Or Threat: Physical, Sexual, Verbal No Social History Narrative Review of Systems I reviewed 11 systems. Positive and relevant symptoms, in addition to those mentioned in HPI, include: As per above. All other systems were negative. PHYSICAL EXAMINATION General Physical Examination Appearance: The patient is healthy appearing and who appears of stated age. she appears well-nourished and comfortable. Vital Signs: Recorded by the nurse as listed above. Head: Atruamatic. Normocephalic. Neck: Supple with normal range of movements. No cervical muscle spasm or tenderness. Carotid arteries: Normal pulsations without bruits. Heart: Normal heart sounds without murmurs. Lungs: Clear to auscultation in all taveras Extremities: Normal limb color and temperature; normal radial pulses; no pedal or ankle edema. Skin: Without rash or lesions Neurological Examination Mental status: The patient is alert, calm, oriented x 3, and exhibits normal language function, attention, concentration, and praxis. Short-term and long- term memory are normal. Fund of knowledge is normal for educational level. Cranial nerves: Pupils are symmetric, equal, round, and normally reactive to light. Visual taveras are full in all taveras. Eye movements are conjugate and full without nystagmus. Facial movements and facial sensation are normal. Hearing is normal bilaterally. Tongue and uvula are midline. Speech is clear and fluent. Shoulder shrug and head movements are normal. She appears to have a flat affect. Motor: Limb muscles show no weakness, atrophy, fasciculations, myoclonus, or drift. Sensory: Limbs show normal sensation bilaterally to touch, pin, vibration, and temperture stimuli. Cerebellar: Slight ataxia with finger to nose as well as heel to pena. Gait and station: Normal stance; slightly unsteady gait;she was not able to tandem; Romberg positive Deep Tendon reflexes: Normal throughout symmetrically in the upper as well as lower extremities Plantar response: Flexor RADIOLOGY AND LABORATORY Radiology: MRI brain - Cerebellar vermal atrophy, official read is normal. Laboratory: Normal B12, folate, TSH, SPEP, HGA1C. ASSESSMENT AND PLAN Virginia Lynne is a pleasant but complex 63 y.o. year old female with a history of balance and gait problems dating back to the mid . She also reports that she was drinking alcohol at that time -approximately 3 glasses of wine a night, for at least 10 years secondary to some relationship issues with her first (she did quit drinking alcohol after their divorce) however, doesn't admit to drinking more than that. 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 She doesn't have a family history of cerebellar ataxia syndromes, and I do not feel that we need to proceed with [place] diagnostic genetic testing at this point. I will add some additional lab work to the labs that Dr. Martin has tested including antigliadin antibodies, Vitamin E level, lyme panel, zinc level, MMA level, and MARCIAL - however if these are normal, and if her neurologic symptoms are static - (she is not sure if thereis a progression or not) I would suspect that this is from her alcohol use, Purkinje cell loss. There may be a super-imposed small fiber neuropathy, she complains of diffuse pain, the etiology is unclear, but her EMG looks normal. I do not see any signs of Parkinsonism or Parkinson's disease, I didreassure her of this. I did not appreciate a foot drop, her strength appeared 5/5 today, and her arm swing was appropriate bilaterally. I advised that she can follow-up locally with Dr. Martin. Thank you very much for this consultation. The patient was told to call with any additional questionsor concerns that should arise in the interim. Peggy Thompson D.O. Movement Disorders [place] [address] TEL: [phone] FAX: [phone] [email or web address] documented in this encounter Plan of Treatment Not on file documented as of this encounter Procedures Procedure Name Priority Date/Time Associated Diagnosis Comments LYME IGG & IGM ANTIBODY Routine 05/09/2014 2:11 PM EST Abnormality of gait and mobility Ataxia Diffuse pain DNA ANTIBODY (DOUBLE-STRANDED) Routine 05/09/2014 2:11 PM EST METHYLMALONIC ACID, SERUM Routine 05/09/2014 2:11 PM EST Abnormality of gait and mobility Ataxia Diffuse pain GLIADIN ANTIBODIES Routine 05/09/2014 2: 11 PM EST Abnormality of gait and mobility Ataxia Diffuse pain ZINC Routine 05/09/2014 2:11 PM EST Abnormality of gait and mobility Ataxia Diffuse pain MARCIAL ANTIBODY SCREEN Routine 05/09/2014 2 :11 PM EST Abnormality of gait and mobility Ataxia Diffuse pain VITAMIN E Routine 05/09/2014 2:11 PM EST Abnormality of gait and mobility Ataxia Diffuse pain documented in this encounter Results * DNA Antibody (Double-Stranded) (05/09/2014 2:11 PM EST) DNA Ab (DS) Neg Neg CERNER MILLENNIUM Blood specimen (specimen) 05/09/2014 2:11 PM EST 05/10/2014 8:11 AM EST Narrative Resulting Agency Comment Spec In Lab Peggy Thompson LAB SEND OUT ORDERAB LES Performing Organization Address City/[facility] Co de Phone Number CERNER MILLENNIUM * Methylmalonic acid, serum (05/09/2014 2:11 PM EST) Methylmalonic Acid (MAY) 0.17 <=0.40 nmol/mL CERNER MILLENNIUM Comment: Test Performed by: [place] [address] [employer] Worker: Joe Lugo M.D. Blood specimen (specimen) 05/09/2014 2:11 PM EST 05/09/2014 4:33 PM EST Narrative Resulting Agency Comment Spec In Lab Peggy Bingham Donna MAJOR LAB SEND OUT ORDERAB LES Performing Organization Address City/[facility]/ZIP Co de Phone Number CERNER MILLENNIUM * Zinc (05/09/2014 2:11 PM EST) Zinc 0.76 0.66 - 1.10 mcg/mL CERNER MILLENNIUM Comment: Test Performed by: [address] [address] [employer] Worker: Joe Lugo M.D. Blood specimen (specimen) 05/09/2014 2:11 PM EST 05/09/2014 2:58 PM EST Narrative Resulting Agency Comment Spec In Lab Peggy Thompson DO LAB SEND OUT ORDERAB LES Performing Organization Address City/[facility] Co de Phone Number [facility] * Vitamin E (05/09/2014 2:11 PM EST) Pathologist [facility] Vitamin E 14.2 5.5 - 17.0 mg/L [facility] Comment: Test Performed by: [facility] [place] [address] [employer] Worker: Lila Silva, Ph.D. Blood specimen (specimen) 05/09/2014 2:11 PM EST 05/09/2014 3:05 PM EST Narrative Resulting Agency Comment Spec In Lab Peggy Thompson DO LAB SEND OUT ORDERAB LES Performing Organization Address [facility] Phone Number [facility] * Gliadin (Deamidated) Antibodies (05/09/2014 2:11 PM EST) [facility] Gliadin IgG Deamidated (MAY) <10.0 <20.0 (Negative) U [facility] Comment: Test Performed by: [place] [address] [employer] Worker: Lila Silva, Ph.D. Gliadin IgA Deamidated (MAY) <10.0 <20.0 (Negative) U [facility] Comment: Test Performed by: [place] [address] [employer] Worker: Lila Silva, Ph.D. Blood specimen (specimen) 05/09/2014 2:11 PM EST 05/09/2014 4:31 PM EST Narrative Resulting Agency Comment Spec In Lab Peggy Thompson DO LAB SEND OUT ORDERAB LES Performing Organization Address City/[facility] Co de Phone Number [facility] * Lyme IgG & IgM Antibody (05/09/2014 2:11 PM EST) Lyme Antibody Neg Neg [facility] MILLUSC [facility] Blood specimen (specimen) 05/09/2014 2:11 PM EST 05/10/2014 6:58 AM EST Narrative Resulting Agency Comment Spec In Lab Peggy Thompson DO IMMUNOLOGY ORDERABLE S Performing Organization Address [facility] Co de Phone Number [facility] * (ABNORMAL) MARCIAL (05/09/2014 2:11 PM EST) MARCIAL Pos(A) Neg [facility] Comment: 1:80 Titer seen with Nucleolar pattern. ??Is suggestive of autoantibodies to 4-6 S RNA. ??High titers are a useful marker for scleroderma. Blood specimen (specimen) 05/09/2014 2:11 PM EST 05/10/2014 8:11 AM EST Narrative Resulting Agency Comment Spec In Lab Peggy Thompson DO LAB SEND OUT ORDERAB LES Performing Organization Address [facility] Co de Phone Number [facility] documented in this encounter Visit Diagnoses Diagnosis Abnormality of gait and mobility Abnormality of gait Ataxia Lack of coordination Diffuse pain Generalized pain documented in this encounter Care Teams Pharmaceutical Service Representative Relationship Specialty Start Date End Date Agustina Gold MD [address] [place] [address] PCP - General 05/14/10 documented as of this encounter
--- OUTSIDE RECORDS SUMMARY | 2024-02-04 13:58 | XMS_ITS | Encounter Summary ---
Author Organization [facility] [place] [address] Care Team Providers Care Educational Consultant Name Role Phone Agustina Gold MD Primary Care Provider [phone] Reason for Visit * Reason Comments Back Pain * Consultation (Routine) - Closed Specialty Diagnoses / Procedures Referred By Contac t Referred To Contact [facility] Diagnoses Chronic back pain, unspecified back location, unspecified back pain laterality Spine-Low back pain/h/o compression fx/MRI 01/2022 in - [facility] Courtney Pandya MD [address] [place] [address] [facility] [place] [address] Referral ID Status Reason Start Date Expiration Date V isits Requested Visits Authorized [id number] Closed Consult, Test & Treat PCP Updated and/or Approved 03/25/2023 03/25/2024 1 1 Encounter Details Date Type Department Care Team (Late st Contact Info) Description 06/10/2023 9:00 AM EST Office Visit [facility] [place] [address] Calixto Fowler PA [facility] [place] [address] Closed compression fracture of body of L1 vertebra; Lumbar spondylosis; Chronic left-sided low back pain without sciatica Social History Tobacco Use Types Packs/Day Years [...] Sign Reading Time Taken Comments Blood Pressure 125/89 06/10/2023 8:25 AM EST Pulse 80 06/10/2023 8:25 AM EST Temperature - - Respiratory Rate - - Oxygen Saturation 97% 06/10/2023 8:25 AM EST Inhaled Oxygen Concentration - - Weight 72.6 kg (160 lb) 06/10/2023 8:25 AM EST Height 157.5 cm (5' 2) 06/10/2023 8:25 AM EST Body Mass Index 29.26 06/10/2023 8:25 AM EST documented in this encounter Progress Notes * Calixto Fowler PA - 06/10/2023 9:00 AM EST Images from the original note were not included. [facility] Calixto Fowler PA-C Dear Colleagues, I had the pleasure of seeing this patient at the [facility] for evaluation. Chief Complaint: Back pain HPI: Virginia is a 72 year old female who presents to clinic for evaluation of back pain. She reports that back pain started about 1.5 years ago when she sustained an L1 compression fracture. She states thatsymptoms are worst first thing in the morning and do improve with movement but become increasingly more problematic with increased activity. Pain is located at thoracolumbar junction mostly in the left sided paraspinal musculature and extends up to the near the scapula. She does not report any radiating pain into the extremities. No numbness, tingling, or weakness. No red flag symptoms. Medications and allergies reviewed and can be found in eDH Social: Tobacco use: former Review of systems: As above in HPI Physical exam: Resting comfortably in no acute distress. Ambulates without assistive device. Able to rise toes andheels. She has lumbar tenderness, particularly on left paraspinals. She has mildly limited forward flexion. She has normal sensation throughout bilateral lower extremities. Motor exam shows 5/5 strength throughout bilateral lower extremities Imaging: Reviewed mri of lumbar spine from 01/2022. Imaging shows degenerative changes of the lumbar spine. L`1 compression fracture Is seen. No definitive neural impingement. Assessment Diagnosis: -back pain Virginia is a 72 year old female who presents to clinic for evaluation of back pain that started afterhaving L1 compression fracture last summer. Imaging from 2021 shows L1 compression fracture but no definitive neural impingement. She has this known fracture as well as multilevel degenerative changes including facet arthropathy. We discussed treatment options moving forward starting with conservative measures. We discussed PT but she would prefer to do home exercises. Treat Your Back booklet provided for home exercises. We will plan to follow up in 2 months for clinical check. If symptoms persist, may consider MRI for further evaluation. Plan: 1) Home exercises 2) Follow up 2 months for clinical check. Thank you for letting me participate in this patient's care. Sincerely, Calixto Fowler PA-C [facility] documented in this encounter Plan of Treatment Not on file documented as of this encounter Visit Diagnoses Diagnosis Closed compression fracture of body of L1 vertebra Lumbar spondylosis Lumbosacral spondylosis without myelopathy Chronic left-sided low back pain without sciatica documented in this encounter Care Teams Educational Consultant Relationship Specialty Start Date End Date Agustina Gold MD [address] [place] [address] PCP - General 05/14/10 documented as of this encounter
--- OUTSIDE RECORDS SUMMARY | 2024-02-04 13:58 | XMS_ITS | Encounter Summary ---
[place] [address] Care Team Providers Care Tube Bender Hand Name Role Phone Agustina Gold MD Primary Care Provider [phone] Encounter Details Date Type Department Care Team (Latest Contact Info) Description 08/12/2023 Travel Social History Tobacco Use Types Packs/Day Years [...] on filedocumented in this encounter Care Teams Tube Bender Hand Relationship Specialty Start Date End Date Agustina Gold MD [address] [place] [address] PCP - General 05/14/10 documented as of this encounter
--- OUTSIDE RECORDS SUMMARY | 2024-02-04 13:58 | XMS_ITS | Encounter Summary ---
Author Organization [facility] Address [facility] [place] [address] Care Team Providers Care Pasteurizer Helper Name Role Phone Agustina Sousa MD Primary Care Provider [phone] Reason for Visit * Reason Comments Advice Only HOLA Encounter Details Date Type Department Care Team (Late st Contact Info) Description 12/08/2011 12:45 PM EDT Office [place] [id number] Jeanne Mcghee MD [facility] [place] [address] Breast hypertrophy (Primary Dx) Discharge Disposition: Home Social History Tobacco Use [...] Sign Reading Time Taken Comments Blood Pressure 116/69 12/08/2011 12:47 PM EDT Pulse - - Temperature - - Respiratory Rate - - Oxygen Saturation - - Inhaled Oxygen Concentration - - Weight 68.9 kg (151 lb 12.8 oz) 012 12:47 PM EDT Height 162.6 cm (5' 4) 12/08/2011 12:4 7 PM EDT Body Mass Index 26.06 12/08/2011 12:47 PM EDT documented in this encounter Patient Instructions * Patient Instructions* Haley Baumann RN - 12/08/2011 1:21 PM EDT At this visit, you were given a folder containing information on: 1. Trifold pamphlet on breast reduction from the [place] [employer] 2. Brochure: Breast Reduction instructions for before and after surgery from [facility] 3. White page: Section of Plastic Surgery Narcotic Use & Postoperative Pain document 4. White page: Drain Care 5. White page: recommended Web Sites 6. White page: Plastic Surgery Scar Massage Techniques 7. Paper printout: nurse powerpoint presentation 8. Two packets of Hibiclens soap A few weeks prior to your surgery, please review the pink pre - post op breast reduction instruction booklet you were given at today's appointment. Remember to do the preop wash with Hibiclens the night before and morning of surgery. If you have any questions or concerns please call our Plastic Surgery Nurse line @ [phone]. We monitor this line Thursday - Thursday 8 to 5. documented in this encounter Progress Notes * Jeanne Mcghee MD - 12/08/2011 2:19 PM EDT PLASTIC SURGERY CONSULTATION Jeanne Mcghee PCP: AGUSTINA SOUSA MD CC: Macromastia Patient ID: I was asked by AGUSTINA SOUSA MD to evaluate Virginia Lynne, a 61 y.o. female, for symptomatic macromastia. She is alone for today's visit. She has completed an intake questionnaire and intake health history. I have reviewed both of these with her and the results are documented in today's encounter. Pertinent findings to emphasize are: [facility] Breast Q 12/08/2011 Headaches? A little of the time Pain in your breast area? Some of the time Lack of energy? Most of the time Difficulty doing vigorous physical activities (e.g. running or exercising)? Some of the time Feeling physically unbalanced? Most of the time Shoulder pain? A little of the time Difficulty sleeping because of discomfort in your breast area? None of the time Neck pain? Most of the time Painful gouges or grooves in your shoulders from your bra straps? A little of the time Feeling physically uncomfortable? Most of the time Rashes under your breasts? A little of the time Back pain? Most of the time Arm pain? Some of the time Pain, numbness or tingling in your hands because of your breast size? A little of the time Conservative Therapy Treatments: [facility] CONSERVATIVE THERAPY TREATMENTS 12/08/2011 Physical therapy was effective at relieving my symptoms. No Relief How many months did you try this treatment? 3 to 6 months Use of custom support bras relieved my symptoms. No Relief How many months did you try this treatment? 3 to 6 months Treatment by a chiropractor relieved my symptoms. No Relief How many months did you try this treatment? Less than 3 months Weight loss relieved my symptoms. No Relief How many months did you try this treatment? Less than 3 months Non-narcotic medications (such as Tylenol, Aspirin, Ibuprofen, Aleve, etc) have relieved my symptoms. No Relief How many months did you try this treatment? More than 6 months Narcotic pain relievers (such as Tylenol #3, Percocet, etc) have relieved my symptoms. Some Relief How many months did you try this treatment? More than 6 months Other Treatments have relieved my symptoms. Some Relief Please specify which treatments have helped. Steroid injections cervical spine How many months did you try this treatment(s)? More than 6 months Over the counter or prescription medication has relieved the rashes under my breasts. Complete Relief How many months did you try this treatment? More than 6 months Objective: Physical Exam: Bra size: C Goal cup size: B Vitals signs reviewed Body mass index is 26.06 kg/(m^2). General: On my examination today, she appears to be in good health. Her emotional outlook is positive and she asked appropriate questions throughout the visit. Musculoskeletal: Her back is straight without evidence of kyphosis. BREAST MEASUREMENTS RIGHT LEFT Ptosis 2 2 SN-N (cm) 27.5 28 IMF-N (cm) 12 12.5 NAC elevat (cm) 4.5 5 Masses absent absent Shoulder grooves absent absent Rash absent absent Axillary rolls absent absent Surgical Scars absent absent Breast Vol (estimate in cc) 500 500 Resection (estimate in gms) 150 150 Assessment and Plan: Virginia Lynne is a 61 y.o. female with symptomatic bilateral breast hypertrophy. Bilateral breast reduction is indicated for relief of her breast-related symptoms. The procedure ofbreast reduction was discussed in detail and it was emphasized that I cannot guarantee a specific requested size. She participated in a BRITE informational session that included graphic images of excellent, average and poor results. We reviewed the surgical risks, alternate skin incisions and pedicle versus free nipple graft techniques. We also discussed the option of volume reduction by liposuction alone, which does not alter the nipple-areolar complex position. We reviewed the timing of surgery relative to weight fluctuations and I've advised that surgery is best done at a realistic jail stable weight. We talked about the outpatient nature of the surgery, drains, postoperative recovery, and time required off work. Wetalked about the impact of this surgery on decreasing breast cancer risk. We specifically discussed the following risks: Liposuction: minimal risks but swelling for several months is to be expected. Disadvantage is that not as much lifting is achieved. We talked about the sometimes need to increase the length of the inframammary fold incision and do a direct excision of tissue if we cannot meet our planned volume of resection. Surgical Risks which are greater with open reduction: bleeding with risk of hematoma (<5%); numbness, which may be temporary or permanent; scarring, including abnormal scarring; infection (5-10%);fat necrosis resulting in a breast mass and possible need for revision. I stressed the likelihood of minor problems with delayed wound healing (~30%) and the rare complication of nipple areolar necrosis. She is also aware that there may be some residual pain after the surgery and that there may possibly be some asymmetry. Vertical or Lollipop Incision: Less scarring on breast, but slightly greater risk for delayed healing and desire for scar revision. (She was informed that her insurer might not cover secondary revisions for scarring or asymmetry.) Hendricks or Shannon Pattern Incision: More scarring on breast, but lower risk for scar revision. (She was informed that her insurer might not cover secondary revisions for scarring or asymmetry.) Pedicle Technique: volume of reduction may be limited by need to provide an adequate blood supply to the nipple. There is a very small risk of nipple loss. Most women (~60%) will be able to breast-feed. Free Nipple Graft: The grafts will initially have no sensation and once fully healed may not respond to temperature and touch as they do now. She has also a been informed that they may not look entirely normal and may have patchy hypopigmentation. She will not be able to breast feed with this technique. After fully discussing the options, she has opted to pursue a: Bilateral Breast Reduction Hendricks Pedicle She would like to proceed with surgery and I will inform AGUSTINA SOUSA MD and Ute Morales of this plan. I, Mey Kulkarni, am acting as scribe only for Dr. Mcghee and all work documented was performed by Dr. Mcghee documented in this encounter Miscellaneous Notes * Miscellaneous - Prakash Station Master - 12/22/2011 12:33 PM EDT documented in this encounter Plan of Treatment Not on file documented as of this encounter Visit Diagnoses Diagnosis Breast hypertrophy- Primary Hypertrophy of breast documented in this encounter Care Teams Pasteurizer Helper Relationship Specialty Start Date End Date Agustina Sousa MD [address] [place] [address] PCP - General 05/14/10 documented as of this encounter
--- OUTSIDE RECORDS SUMMARY | 2024-02-04 13:58 | XMS_ITS | Encounter Summary ---
Author Organization [facility] [place] [address] Care Team Providers Care Assistant Toddler Teacher Name Role Phone Agustina Gold MD Primary Care Provider [phone] Encounter Details Date Type Department Care Team (Late st Contact Info) Description 09/02/2010 3:00 PM EDT Office [place] [address] Jamaal Ng MD [facility] [place] [address] Dustin Renteria MD [facility] [place] [address] Discharge Disposition: Home Social History Tobacco Use [...] on filedocumented in this encounter Care Teams Assistant Toddler Teacher Relationship Specialty Start Date End Date Agustina Gold MD [address] [place] [address] PCP - General 05/14/10 documented as of this encounter
--- OUTSIDE RECORDS SUMMARY | 2024-02-04 13:58 | XMS_ITS | Encounter Summary ---
[place] [address] Care Team Providers Care Technical Sourcing Recruiter Name Role Phone Agustina Gold MD Primary Care Provider [phone] Encounter Details Date Type Department Care Team (Late st Contact Info) Description 01/24/2022 Ancillary Procedure [place] [phone] Agustina Gold MD [address] [place] [address] Social History Tobacco Use Types Packs/Day Years [...] Diagnosis Comments FILM LIBRARY STORAGE ONLY MR SPINE Routine 01/24/2022 12:00 AM EDT documented in this encounter Results * Film Library- Storage Only MR Spine (01/24/2022 12:00 AM EDT) Narrative [facility] - 01/25/2022 3:55 AM EDT This exam is auto-finalizing. It's purpose is for storage only. Agustina Gold MD IMG FILM LIBRARY ORD ERABLES [facility] RAD [place], [place] documented in this encounter Visit Diagnoses Not on filedocumented in this encounter Care Teams Technical Sourcing Recruiter Relationship Specialty Start Date End Date Agustina Gold MD [address] [place] [address] PCP - General 05/14/10 documented as of this encounter
--- OUTSIDE RECORDS SUMMARY | 2024-02-04 13:58 | XMS_ITS | Encounter Summary ---
[place] [address] Care Team Providers Care Bindery Machine Setter/Set Up Operator Name Role Phone Agustina Gold MD Primary Care Provider [phone] Encounter Details Date Type Department Care Team (Latest Contact Info) Description 09/02/2023 Travel Social History Tobacco Use Types Packs/Day [...] on filedocumented in this encounter Care Teams Bindery Machine Setter/Set Up Operator Relationship Specialty Start Date End Date Agustina Gold MD [address] [place] [address] PCP - General 05/14/10 documented as of this encounter
--- OUTSIDE RECORDS SUMMARY | 2024-02-04 13:58 | XMS_ITS | Encounter Summary ---
Author Organization [facility] Address [facility] [place] [address] Care Team Providers Care Die Casting Machine Setter Name Role Phone Agustina Gold MD Primary Care Provider Reason for Visit * Reason Comments Follow-up Encounter Details Date Type Department Care Team (Late st Contact Info) Description 09/09/2023 2:30 PM EDT Office Visit [facility] [place] [address] Calixto Fowler PA [facility] [place] [address] Closed compression fracture of body of L1 vertebra; Lumbar spondylosis Social History Tobacco Use Types Packs/Day Years [...] - - Weight 72.6 kg (160 lb) 09/09/2023 2:26 PM EDT Height 157.5 cm (5' 2) 09/09/2023 2:26 PM EDT Body Mass Index 29.26 09/09/2023 2:26 PM EDT documented in this encounter Progress Notes * Calixto Fowler PA - 09/09/2023 2:30 PM EDT Images from the original note were not included. [facility] Calixto Fowler PA-C Dear Colleagues, I had the pleasure of seeing this patient at the [facility] for evaluation. Chief Complaint: Follow up to review MRI results. Back pain. L1 compression fracture HPI: Virginia is a 73 year old female who returns to clinic to review MRI results which were obtained for further evaluation of back pain. She reports no significant changes since our last visit which occurred on 08/12/23 at which point she was complaining of back pain which was not responding to conservative measures. Plan was to obtain MRI to help determine potential causes of her pain such as unhealed L1 compression fracture help with planning of next steps. Medications and allergies reviewed and can be found in eDH Review of systems: As above in HPI Physical exam: Resting in no acute distress. Grossly motor and sensory intact without obvious focal deficit. Imaging: Reviewed MRI lumbar spine dated 09/01/22. This shows wedge compression fracture deformity of L1 height loss and mild retropulsion without evidence of persistent marrow edema or neural compression. Degenerative changes of the lumbar spine with slight disc bulges at L2-3, L3-4, L4-5 without definitiveneural compression. Facet arthropathy is noted throughout. Assessment Diagnosis: -Lumbar spondylosis -L1 compression fracture Virginia is a 73 year old female who presents to clinic for follow up to review MRI results which wereobtained for further evaluation of back pain. Imaging shows L1 compression fracture has healed and otherwise age appropriate degenerative changes and no evidence of neural impingement. We discussed that it is unclear as to what exactly is the cause of her symptoms. Higher suspicion of muscular painand recommend starting PT and she will seek this closer to home. Offered referral but she prefers to speak to PCP regarding this. We discussed pain management consult to discuss other potential medications or conservative managements which is deferred at this point in time. We will follow up on an as needed basis. Plan: 1) Follow up as needed. Thank you for letting me participate in this patient's care. Sincerely, Calixto Fowler PA-C [facility] documented in this encounter Plan of Treatment Not on file documented as of this encounter Visit Diagnoses Diagnosis Closed compression fracture of body of L1 vertebra Lumbar spondylosis Lumbosacral spondylosis without myelopathy documented in this encounter Care Teams Die Casting Machine Setter Relationship Specialty Start Date End Date Agustina Gold MD [address] [place] [address] PCP - General 05/14/10 documented as of this encounter
--- OUTSIDE RECORDS SUMMARY | 2024-02-04 13:58 | XMS_ITS | Clinical Summary ---
Author Organization [facility] Address [facility] [place] [address] Care Team Providers Care Esthetician Facialist Name Role Phone Agustina Gold MD Primary Care Provider [phone] Allergies Active Allergy Reactions Criticality Noted Date Comments Atorvastatin Calcium Leg Cramps Medications Medication Sig Dispensed Refills Start Date End Date Status clonazePAM (KLONOPIN) 1 mg Tablet Take 1 tablet by mouth daily. 04/13/2014 Active DULoxetine (CYMBALTA) 60 mg Capsule, Delayed Release(E.C.) Take 1 capsule by mouth daily. 04/18/2014 Active gabapentin (NEURONTIN) 300 mg Capsule Take 2 capsules by mouth daily. 05/01/2014 Active ibuprofen (ADVIL;MOTRIN) 800 mg Tablet Take 1 tablet by mouth as needed. 05/04/2014 Active levothyroxine (SYNTHROID) 50 mcg Tablet Take 1 tablet by mouth daily. 05/01/2014 Active rosuvastatin (Crestor) 5 mg tablet Take 5 mg by mouth daily. Active hydroCHLOROthiazide (Hydrodiuril) 12.5 mg tablet Take 12.5 mg by mouth every morning. 07/31/2023 Active methocarbamoL (Robaxin) 500 mg tablet Take 500 mg by mouth as needed. 06/25/2023 Active cholecalciferol, Vitamin D3, (Vitamin D3) 50 mcg (2,000 unit) tablet Take 1 tablet by mouth Daily at Noon. 06/19/2023 Active Calcium Carbonate 600 mg calcium (1,500 mg) Tablet Take 1 tablet by mouth Daily at Noon. 06/19/2023 Active oxyCODONE (Roxicodone) 5 mg tablet Take 5 mg by mouth 4 times daily. 07/23/2023 Active cyanocobalamin, vitamin B-12, (VITAMIN B-12 ORAL) Take by mouth daily. Active aspirin 81 mg capsule Take 81 mg by mouth daily. Active Active Problems Problem Noted Date Diagnosed Date Ataxia 05/09/2014 Abnormality of gait and mobility 05/09/2014 SHANELL (obstructive sleep apnea) 10/05/2010 Overview (07/28/2012): Moderate AHI 16.4, placed on auto Cpap 12-30, hated CPAP and was sent to ENT for surgical evaluation. Had UPPP and was seen in f/u 10/30 was still snoring but symptomatically improved. 07/28/12: TAP titration study showed adequate control in supine NREM at setting of 6 turns, but insufficient in supine REM at 8 turns; recommend setting of 9 turns (which is acceptable maximal protrusion) Immunizations Name Administration Dates Next Due Influenza Trivalent w/Preservative 05/06/2010 Pneumococcal Polysaccharide (Pneumovax 23) 10/18 TD Adult 06/04/2005 Family History Medical History Relation Comments High Cholesterol Father Stroke Father Breast Cancer Mother Breast Cancer Other Grandmother Relation Status Comments Father Mother Other Social History Tobacco Use Types Packs/Day Years [...] Pulse 80 06/10/2023 8:25 AM EST Temperature 36.4 ??C (97.5 ??F) 10/05/2010 11:21 AM E DT Respiratory Rate 14 07/27/2012 8:00 PM EST Oxygen Saturation 97% 06/10/2023 8:25 AM EST Inhaled Oxygen Concentration - - Weight 72.6 kg (160 lb) 09/09/2023 2:26 PM EDT Height 157.5 cm (5' 2) 09/09/2023 2:26 PM EDT Body Mass Index 29.26 09/09/2023 2:26 PM EDT Plan of Treatment Health Maintenance Due Date Last Done Comments CT Colonography 1952 Colonoscopy 1950 Colorectal Cancer Screening 1950 FIT DNA 1950 FIT 1950 Sigmoidoscopy (10 year) with FIT yearly 1950 Sigmoidoscopy 1950 Hepatitis C Screening 1970 Tdap adult 1971 Breast Cancer Share Decision Needed 1992 Breast Cancer screening 1992 Zoster vaccine (1 of 2) 2002 Advance Directive 2007 Tetanus vaccine 06/04/2015 06/04/2005 Bone Density Scan 2017 Pneumoccocal Vaccine: 65+ (2 of 2 - PCV) 2017 10/18/2002 Covid-19 Vaccine (1 - 2022- season) 2023 Influenza (Flu) vaccine (1 o f 1 - Influenza standard series) 02/21/2024 05/06/2010 Advance Directives * Full Code (Latest Code Status on File) Date Activated Date Inactivated Comments 10/05/2010 11:58 AM Question Answer Comments Does patient have decision m aking capacity? Yes, Order is based on Patients wishes. * Full Code Date Activated Date Inactivated Comments 10/04/2010 2:01 PM 10/05/2010 11:58 AM Question Answer Comments Order Status: Initial Order Does patient have decision m aking capacity? Yes, Order is based on Patients wishes. * Full Code Date Activated Date Inactivated Comments 10/04/2010 12:22 PM 10/04/2010 2:01 PM Question Answer Comments Order Status: Initial Order Does patient have decision m aking capacity? Yes, Order is based on Patients wishes. Care Teams Esthetician Facialist Relationship Specialty Start Date End Date Agustina Gold MD [address] [place] [address] PCP - General 05/14/10
--- OUTSIDE RECORDS SUMMARY | 2024-02-04 13:58 | XMS_ITS | Encounter Summary ---
Author Organization [facility] [place] [address] Care Team Providers Care Supervisor Laboratory Name Role Phone gAustina Gold MD Primary Care Provider Encounter Details Date Type Department Care Team (Late st Contact Info) Description 06/11/2010 2:30 PM EST Follow-Up [place] [address] Yaya Pascual MD [facility] [place] [address] Social History Tobacco Use Types Packs/Day Years Used Date Smoking Tobacco: Never Assessed Sex and Gender Information Value Date Recorded Sex Assigned at Not on file Gender Identity Not on file Sexual Orientation Not on file documented as of this encounter Plan of Treatment Not on file documented as of this encounter Visit Diagnoses Not on filedocumented in this encounter Care Teams Supervisor Laboratory Relationship Specialty Start Date End Date Agustina Gold MD [address] [place] [address] PCP - General 05/14/10 documented as of this encounter
--- OUTSIDE RECORDS SUMMARY | 2024-02-04 13:58 | XMS_ITS | Encounter Summary ---
[place] [address] Care Team Providers Care Assembler Body Name Role Phone Agustina Gold MD Primary Care Provider [phone] Encounter Details Date Type Department Care Team (Latest Contact Info) Description 06/10/2023 Travel Social History Tobacco Use Types Packs/Day [...] on filedocumented in this encounter Care Teams Assembler Body Relationship Specialty Start Date End Date Agustina Gold MD [address] [place] [address] PCP - General 05/14/10 documented as of this encounter
--- OUTSIDE RECORDS SUMMARY | 2024-02-04 13:58 | XMS_ITS | Encounter Summary ---
Author Organization [facility] [place] [address] Care Team Providers Care Quilt Maker Name Role Phone Agustina Gold MD Primary Care Provider [phone] Encounter Details Date Type Department Care Team (Late st Contact Info) Description 05/12/2023 Telephone [facility] [place] [phone] Denise Cohen Social History Tobacco Use Types Packs/Day Years [...] as of this encounter Miscellaneous Notes * Telephone Encounter - Denise Cohen - 05/12/2023 11:09 AM EST 05/12/2023 Contacted patient to confirm NPV w/ JOSE Fowler on 05/13/23 @ 9 am . Patient confirms will be attending. documented in this encounter Plan of Treatment Not on file documented as of this encounter Visit Diagnoses Not on filedocumented in this encounter Care Teams Quilt Maker Relationship Specialty Start Date End Date Agustina Gold MD [address] [place] [address] PCP - General 05/14/10 documented as of this encounter
--- OUTSIDE RECORDS SUMMARY | 2024-02-04 13:58 | XMS_ITS | Encounter Summary ---
Author Organization [facility] Address [facility] [place] [address] Care Team Providers Care Die Maintenance Name Role Phone Agustina Gold MD Primary Care Provider [phone] Reason for Visit * Reason Comments Post Op Encounter Details Date Type Department Care Team (Late st Contact Info) Description 11/11/2010 11:15 AM EDT Office [place] [phone] Jamaal Ng MD [facility] [place] [address] SHANELL (obstructive sleep apnea) (Primary Dx) Discharge Disposition: Home Social History Tobacco Use Types Packs/Day Years Used Date Smoking Tobacco: Never Assessed Sex and Gender Information Value Date Recorded Sex Assigned at Not on file Gender Identity Not on file Sexual Orientation Not on file documented as of this encounter Last Filed Vital Signs Vital Sign Reading Time Taken Comments Blood Pressure 108/70 11/11/2010 11:22 AM EDT Pulse 62 11/11/2010 11:22 AM EDT Temperature - - Respiratory Rate - - Oxygen Saturation - - Inhaled Oxygen Concentration - - Weight - - Height - - Body Mass Index - - documented in this encounter Progress Notes * Jamaal Ng MD - 11/11/2010 11:34 AM EDT Patient was seen today for follow up of SHANELL. Has had a UPPP and is doing well Patient reports some residual numbness. Snoring still present but very soft Filed Vitals: 11/11/10 1122 BP: 108/70 Pulse: 62 Patient Active Problem List Diagnoses Date Noted ??? SHANELL (obstructive sleep apnea) [327.23H] 10/05/2010 Medications: Outpatient encounter prescriptions as of 11/11/2010 Medication Sig Dispense Refill ??? acetaminophen (TYLENOL) 650 mg/20.3 mL Soln Take 20.3 mLs by mouth every 4 hours as needed. ??? CIS Free Text Med - Calcium + D ??? clonAZEpam (KLONOPIN) 1 mg tablet 1mg, PO, QHS ??? simvastatin (ZOCOR) 10 mg tablet 10MG, PO, QPM ??? cyanocobalamin (VITAMIN B-12) 500 mcg tablet ??? OXYcodone (ROXICODONE) 5 mg/5 mL solution Take 5-15 mLs by mouth every 3 hours as needed for Pain. 250 mL 0 Allergies: Allergies as of 11/11/2010 - Review Complete 11/11/2010 Allergen Reaction Noted ??? Atorvastatin calcium E: TMs pearly olivier and mobile. EAC normal N: Normal mucosa OC/OP: mucosa clear. No masses seen. Palatectomy site has healed well. Neck: Normal. No adenopath. FROM A: SHANELL post UPPP P: Will schedule f/u PSG . documented in this encounter Plan of Treatment Not on file documented as of this encounter Visit Diagnoses Diagnosis SHANELL (obstructive sleep apnea)- Primary Obstructive sleep apnea (adult) (pediatric) documented in this encounter Care Teams Die Maintenance Relationship Specialty Start Date End Date Agustina Gold MD [address] [place] [address] PCP - General 05/14/10 documented as of this encounter
--- OUTSIDE RECORDS SUMMARY | 2024-02-04 13:58 | XMS_ITS | Encounter Summary ---
[place] [address] Care Team Providers Care Billboard Installer Name Role Phone Agustina Gold MD Primary Care Provider [phone] Reason for Referral * Consultation (Routine) - Closed Specialty Diagnoses / Procedures Referred By Contac t Referred To Contact [facility] Sp[facility] Center Diagnoses Chronic back pain, unspecified back location, unspecified back pain laterality Spine-Back pain/L1 compression fx/MRI 01/24/22 in e-DH/XR prior(ordered by [facility]) [facility] Courtney Pandya MD [address] [place] [address] [facility] [place] [place] [address] Referral ID Status Reason Start Date Expiration Date V isits Requested Visits Authorized [id number] Closed Consult, Test & Treat PCP Updated and/or Approved 01/02/2022 01/02/2023 6 6 Encounter Details Date Type Department Care Team (Latest Contact Info) Description 01/02/2022 Transcribe Orders eDH Incoming Referrals [phone] Courtney Pandya MD [address] [place], [place] [address] Chronic back pain, unspecified back location, unspecified [...] Associated Diagnoses Orde r Schedule Referral to Sleep Disorders Center Outpatient Referral Routine Chronic back pain, unspecified back location, unspecified back pain laterality Ordered: 01/02/2022 documented as of this encounter Visit Diagnoses Diagnosis Chronic back pain, unspecified back location, unspecified back pain laterality documented in this encounter Care Teams Billboard Installer Relationship Specialty Start Date End Date Agustina Gold MD [address] [place] [address] PCP - General 05/14/10 documented as of this encounter
--- OUTSIDE RECORDS SUMMARY | 2024-02-04 13:58 | XMS_ITS | Encounter Summary ---
Author Organization [facility] [place] [address] Care Team Providers Care Him Analyst Name Role Phone Agustina Gold MD Primary Care Provider [phone] Encounter Details Date Type Department Care Team (Late st Contact Info) Description 02/07/2022 Orders Only [place] [address] Calixto Fowler PA [facility] [place] [address] Closed compression fracture of body of L1 [...] vertebra documented in this encounter Care Teams Him Analyst Relationship Specialty Start Date End Date Agustina Gold MD [address] [place], [place] [address] PCP - General 05/14/10 documented as of this encounter
--- OUTSIDE RECORDS SUMMARY | 2024-02-04 13:58 | XMS_ITS | Encounter Summary ---
[place] [address] Care Team Providers Care Cable Splicer Assistant Name Role Phone Agustina Gold MD Primary Care Provider [phone] Encounter Details Date Type Department Care Team (Latest Contact Info) Description 06/03/2023 Travel Social History Tobacco Use Types Packs/Day [...] on filedocumented in this encounter Care Teams Cable Splicer Assistant Relationship Specialty Start Date End Date Agustina Gold MD [address] [place] [address] PCP - General 05/14/10 documented as of this encounter
--- OUTSIDE RECORDS SUMMARY | 2024-02-04 13:58 | XMS_ITS | Encounter Summary ---
Author Organization [facility] Address [facility] [place] [address] Care Team Providers Care Thoracic Surgeon Name Role Phone Agustina Gold MD Primary Care Provider [phone] Encounter Details Date Type Department Care Team (Latest Contact Info) Description 10/04/2010 12:18 PM EDT - 10/04/2010 2:33 PM EDT Surgery [place] [phone] Antony Ng MD [facility] [place] [address] PALATOPHARYNGOPLASTY (UVULOPALATOPHARYNGOPLASTY) (WRVU 9.78) Social History Tobacco Use Types Packs/Day Years Used Date Smoking Tobacco: Never Assessed Sex and Gender Information Value Date Recorded Sex Assigned at Not on file Gender Identity Not on file Sexual Orientation Not on file documented as of this encounter Last Filed Vital Signs Vital Sign Reading Time Taken Comments Blood Pressure 112/66 10/04/2010 2:30 PM EDT Pulse 56 10/04/2010 2:30 PM EDT Temperature 36.2 ??C (97.2 ??F) 10/04/2010 1:38 PM ED T Respiratory Rate 14 10/04/2010 2:30 PM EDT Oxygen Saturation 99% 10/04/2010 2:30 PM EDT Inhaled Oxygen Concentration - - Weight [...] 101.3 F. IMPORTANT PHONE NUMBERS: ENT Clinic: [phone] ENT Residents Formal Wear Rental Clerk (after 5pm or before 8am): [phone] Driving: No driving while still taking opioid pain medications (wait at least 6- 8 hours since last dose). No driving if you are still sore from surgery as it may limit your ability to react quickly if necessary. Follow up Appointments: Follow-up appointment will be scheduled with Dr. Ng in 4 weeks. Appointment will be mailed to you. Please call [phone] (clinic number for appointments) to confirm date [...] as of this encounter Progress Notes * Moriarity-Oralia Naik - 10/05/2010 3:27 PM EDT Clinical [...] course unless consulted in the interim. ORALIA ODDD 10/05/2010 * Lila Grider RN - 10/05/2010 [...] who is s/p UPPP for SHANELL on 4/15. S/24hr: no acute events overnight. Pain is [...] 1:14 PM EDT) Surgical Pathology Report [id number] ? Location: [facility]; [facility]; The signing pathologist has (i) examined the [...] in rendering the final pathologic diagnosis. VILMA SOW 10/04/2010 1:14 PM EDT Antony Ng MD PATHOLOGY/CYTOLO GY ORDERABLES [facility] * SURGICAL PATHOLOGY REPORT (10/04/2010 1:14 PM EDT) Surgical Pathology Report ? [facility] ? Provider: ?? KUMAR, ?Pt. Name: ?? ALLEN LYNNE ?ANTONY ? Acc #: ?[id number] ?Pt. ? Col Date: ?? 10/04/2010 ? /Sex: ?1950,(60 years),Female ? Rec Date: ?? 10/04/2010 ? LOC: ?5WST ? SURGICAL PATHOLOGY ? ---Pathologic Diagnosis--- ? 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 10/07/10 ? VAM ? 10/07/10 Verified by: ? Ambreen TORRES, Jarvis Msaon ? Pathologist ? (Electronic Signature) ? The [...] uvula ? Clinical History/Diagnos is: ? SHANELL [facility] 10/04/2010 1:14 PM EDT Antony Ng MD PATHOLOGY/CYTOLO GY ORDERABLES VILMA SOW documented in this encounter Visit Diagnoses Not on filedocumented in this encounter Administered Medications Inactive Administered [...] 5% 50mL 1,000 mg (1 g), Intravenous, ONCE, 1 dose, On Thu10/04/10 at 1245, Administer over 30 Minutes, Redose after 4 hours., Day of Surgery (Day of Procedure) Given 10/04/2010 12:44 PM EDT 1 g ceFAZolin (ANCEF) 1g in dextrose 5% 50mL [...] New Bag 10/04/2010 10:32 PM EDT 1,000 mLs 100 mL/hr lidocaine-epiNEPHrine 1 %-1:100,000 injection ONCE PRN, 1 dose, Starting on Thu10/04/10 at 1300, Until Thu10/04/10 at 1300, Intra-Operative (Intra-Procedure), Routine Given 10/04/2010 1:00 PM EDT 4.5 mLs 19- Surgical Site morphine 2 mg/mL carpuject 1-2 mg 1-2 [...] 2014 (Given - Provider: Delano Sylvester RN) 041 (Given - Provider: Delano Sylvester RN)1215 (Given - Provider: Lila Grider RN) clonAZEpam (KLONOPIN) tablet 1 mg (CANCELED) 1 mg, Oral, NIGHTLY, First dose on Thu10/04/10 at 2100, Until Discontinued, Recovery (Recovery-Hospital Unit), Routine 2100 (Given - Provider: Delano Sylvester RN) dexamethasone (DECADRON) injection 8 mg (COMPLETED) 8 mg, Intravenous, ONCE, 1 dose, On 10/05/10 at 1045 1045 (Given - Provid er: Lila Grider RN) esomeprazole (NEXIUM) injection 40 mg (CANCELED) 40 mg, Intravenous, DAILY, First dose on Thu10/04/10 at 1830, Until Discontinued 1830 (Given - Provider: Delano Syvlester RN) 0851 (Given - Provider: Lila Grider [...] from all sources in 24 hours., Routine 2109 (Given - Provider: Delano Sylvester RN) 0301 (Given - Provider: Delano Sylvester RN)0739 (Given - Provider: Lila Grider RN)1142 (Given - Provider: Lila Grider RN) HYDROmorphone [...] Oral, EVERY 4 HOURS PRN, Starting on 10/04/10 at 1752, Until 10/05/10 at 1026, Pain, [...] rs.) documented in this encounter Care Teams Thoracic Surgeon Relationship Specialty Start Date End Date Agustina Gold MD [address] [place] [address] PCP - General 05/14/10 documented as of this encounter
--- OUTSIDE RECORDS SUMMARY | 2024-02-04 13:58 | XMS_ITS | Encounter Summary ---
[place] [address] Care Team Providers Care Budget And Policy Analyst Name Role Phone Agustina Gold MD Primary Care Provider [phone] Encounter Details Date Type Department Care Team (Latest Contact Info) Description 09/09/2023 Travel Social History Tobacco Use Types Packs/Day [...] on filedocumented in this encounter Care Teams Budget And Policy Analyst Relationship Specialty Start Date End Date Agustina Gold MD [address] [place] [address] PCP - General 05/14/10 documented as of this encounter
--- OUTSIDE RECORDS SUMMARY | 2024-02-04 13:58 | XMS_ITS | Encounter Summary ---
Author Organization [facility] Address [facility] [place] [address] Care Team Providers Care Wheelchair Driver Name Role Phone Agustina Gold MD Primary Care Provider [phone] Encounter Details Date Type Department Care Team (Late st Contact Info) Description 10/04/2010 12:31 PM EDT Anesthesia Event [place] [address] Dustin Pool MD [facility] [place] [address] Isabel Guillen CRNA [facility] [place] [address] Anesthesia Record Procedure Summary Procedure Name Responsible Anesthesiologist Anesthesia Start Time Anesthesia Stop Time PALATOPHARYNGOPLASTY (UVULOPALATOPHARYNGOPLASTY) (WRVU 9.78) (Mouth) Dustin Pool MD 10/04/10 1231 10/04/10 1255 Events Date Time Event Comment 10/04/2010 1231 Start 1255 Stop Meds * Agents No agents on file. * Blood No blood administrations on file. Lines, Drains, and Airways Type Details Placement Removal (RETIRED) Peripheral IV Line - Single Lumen 10/04/10; 1219; 10/05/10; 1259 10/04/10 1219 by Pamela Lozano RN 10/05/10 1259 by Lila Grider RN Incision 10/04/10; 1250; other (see comments) (oral); 10/05/10; 1259 10/04/10 1250 by Magda Monsivais RN 10/05/10 1259 by Lila Grider RN documented in this encounter Social History Tobacco Use Types Packs/Day Years Used Date Smoking Tobacco: Never Assessed Sex and Gender Information Value Date Recorded Sex Assigned at Not on file Gender Identity Not on file Sexual Orientation Not on file documented as of this encounter OR Notes * Anesthesia Postprocedure Evaluation - Dustin Pool MD - 10/04/2010 2:58 PM EDT Patient: Virginia Lynne Procedure(s) Performed: PALATOPHARYNGOPLASTY (UVULOPALATOPHARYNGOPLASTY) - no resident please Patient location: PACU Post-op pain: Adequate analgesia Post-op nausea: no nausea or vomiting Last Vitals: Filed Vitals: 10/04/10 1445 BP: 117/70 Pulse: 76 Temp: Resp: 19 Post-op cardiovascular and respiratory status: is stable Level of consciousness: awake Complications: no apparent complications Fluid Status: normal * Anesthesia Preprocedure Evaluation - Dustin Pool MD - 10/04/2010 11:39 AM EDT Anesthesia Evaluation Patient summary reviewed and Nursing notes reviewed No hx of anesthetic complications Airway Mallampati: II TM distance: >3 FB Neck ROM: limited Dental - normal exam Pulmonary - normal exam (+) sleep apnea, Cardiovascular - negative ROS and normal exam Neuro/Psych (+) psychiatric history GI/Hepatic/Renal - negative ROS Endo/Other - negative ROS Abdominal - normal exam Other findings: Has cervical bone spurs, but can slowly extend. No Paresthesias. Anesthesia Plan ASA 1 General with intravenous induction Oral ray ETT per surgeons request. Anesthetic plan and risks discussed with patient and spouse. Plan discussed with SPRAY DRIER OPERATOR. documented in this encounter Miscellaneous Notes * Addendum Note - Tammy Berry - 10/07/2010 4:14 PM EDT * Addendum Note - Eugenie Craven - 10/07/2010 3:46 PM EDT Addendum created 10/07/10 1546 by Eugenie Craven Modules edited:Anesthesia Events, Anesthesia Responsible Staff documented in this encounter Plan of Treatment Not on file documented as of this encounter Visit Diagnoses Not on filedocumented in this encounter Care Teams Wheelchair Driver Relationship Specialty Start Date End Date Agustina Gold MD [address] [place] [address] PCP - General 05/14/10 documented as of this encounter
--- OUTSIDE RECORDS SUMMARY | 2024-02-04 13:58 | XMS_ITS | Encounter Summary ---
Author Organization [facility] [place] [address] Care Team Providers Care Varnish Thinner Name Role Phone Agustina Gold MD Primary Care Provider [phone] Encounter Details Date Type Department Care Team (Late st Contact Info) Description 07/27/2012 8:00 PM EST Procedure visit Sleep Center at [facility] [address] [place] [address] Jarrett Brar MD [facility] [place] [address] SHANELL (obstructive sleep apnea) (Primary Dx) Social [...] Sign Reading Time Taken Comments Blood Pressure 105/65 07/27/2012 8:00 PM EST Pulse 69 07/27/2012 8:00 PM EST Temperature - - Respiratory Rate 14 07/27/2012 8:00 PM EST Oxygen Saturation - - Inhaled Oxygen Concentration - - Weight 68.2 kg (150 lb 4.8 oz) 07/27/2012 8:00 P M EST Height - - Body Mass Index 25.8 12/08/2011 12:47 PM EDT documented in this encounter Progress Notes * Michael Varghese MD - 08/15/2012 8:12 PM EST I reviewed the polysomnography in its entirety. I have reviewed Dr. Brar's note and agree with the findings and recommendations. MICHAEL VARGHESE MD MD * Jarrett Brar D - 07/28/2012 11:26 AM EST Images from the original note were not included. REPORT OF TAP (ORAL APPLIANCE) TITRATION IDENTIFYING INFORMATION Patient's Name: Virginia Lynne Date of : 1950 REFERRING PHYSICIAN: PCP PRIMARY CARE PHYSICIAN: Agustina Gold MD Date of Service: 07/27/2012 Identification: Virginia Lynne is a 61 y.o. woman presenting for a TAP titration study. Polysomnography: The patient's sleep was evaluated for one night at the [facility]. Sleep was monitored in accordance with recommended AASM guidelines. The recording also included oral/nasal airflow, chest and abdominal respiratory effort, nasal pressure, single channel EKG, intercostalEMG, bilateral tibialis EMG, and oxygen saturation (by pulse oximeter). Type of Oral Appliance Utilized: TAP Comments - Sleep/EEG: Patient reports sleep quality was better compared to her usual experience at home. Thestudy started at 12:32 am and ended at 6:47 am, yielding a total recording time (TRT) of 6 hours and 15 minutes. The sleep onset latency was within normal range at 15 minutes. Sleep efficiency was reduced at 78%. All sleep stages (N1, N2, N3, R) were captured, entirely in the supine position. One period of REM (supine) was captured. REM onset was delayed. - Respiratory: TAP was titrated from setting of 6 turns (0.25 mm advancement per turn) to 9 turns, per dental instructions. Acceptable Maximal Protrusion identified by Dr. Frankel was 9 turns. Position and Sleep Stage Settings Tested Findings Lateral NREM n/a n/a Supine NREM 6-9 Good control at 6-8, more frequent hypopneas (all types) at setting of 9 - this wasfelt secondary to fragmented sleep and not primarily due to obstruction Lateral REM n/a n/a Supine REM 8 Persistent events (mostly 3% hypopneas) Snoring persisted at all settings. These results show an effective setting of 6 turns in supine NREM sleep, but insufficient control at setting of 8 in supine REM. The SpO2 lucia was 88%. There was a 15-minute period with SpO2 sustained <= 90% during NREM sleep. Oximetry probe was switched to ensure accurate values, after which baseline SpO2 increased but remained in the low 90s. - EKG: Normal sinus rhythm. - EMG: Unremarkable. - Technical Limitations: No ECG recording after 4:41 am. - Study Conditions: - Head of the bed: flat, 2-3 pillows - Supplemental oxygen: none Assessment: Virginia Lynne is a 61 y.o. woman with moderate SHANELL whose polysomnogram suggests a necessary TAP setting of 9 turns, which is the acceptable maximum protrusion. These results show an effective setting of 6 turns in supine NREM sleep, but insufficient control at setting of 8 in supine REM. To ensure adequate control, we recommend proceeding with a setting of 9 turns. Unclear etiology for baseline sleep SpO2 in the borderline range. Patient is a former smoker, whichmay be contributing. Suggest she discuss this with PCP. Study results and recommendations were discussed with patient via telephone, and relevant questions/concerns answered; patient is amenable to proceeding with advancement of TAP device. She denies current symptoms of RLS or insomnia (noted as presenting concerns at Feb 2010 evaluation). ICSD diagnosis (code): - SHANELL (327.23) Plan: - TAP device at setting of 9 turns (acceptable maximum protrusion) - study results were discussed, and relevant questions/concerns answered; patient is amenable to proceeding with advancement of TAP device - note will be forwarded to patient's dentist - f/u with PCP re: sustained borderline SpO2 during sleep - patient will be seen for follow-up with Dr. Brar in 6 months, or sooner if any questions or problems arise Patient confirms we may forward notes to: Referring provider (and PCP): Agustina Gold MD ([facility] in [place], [place]) Dentist: Dexter Frankel DMD The study was reviewed and case discussed with Dr. Varghese, who participated in the formulation ofthe above assessment and plan. Study Scoring Results: [facility] DIAGNOSTIC REPORT Patient Name: Virginia Lynne Study Type: PSG (with TAP titration) Sex: Female Study Date: 07/27/2012 Date of : 1950 [facility] #: [id number] Age: 61 Referring Physician: Height: Sleep Specialist: Jarrett Brar MD/ Michael Varghese MD Weight: Recording Tech: B.M.I: Scoring Tech: Blake Del Toro [facility] SCORING TECHNOLOGIST COMMENTS: ECG: NSR Ectopy: None The PSG revealed occasional OH and SHANELL events associated with decreased SaO2 and arousals. There was no significant PLM activity or EKG abnormalities. DED Description of study: Diagnostic Polysomnography was performed utilizing Frontal, central & occipital EEG, EOG, submentalis EMG, oronasal thermocouple, nasal pressure, ECG, thoracic and abdominalinductance plethysmography, right and left anterior tibialis EMG, snore sensor, and pulse oximetry according to AASM established guidelines. Sleep Architecture Diagnostic Start Time Lights Off: 00:32:20 Total Number of Stage Shifts: 94 Diagnostic End Time Lights On: 06:47:21 Number of Transitions to Stage 1: 28 Total Recording Time (TRT): 375.0 Total Number of Awakenings: 11 Total Sleep Time (TST): 294.0 minutes REM Periods: 2 Sleep Efficiency: 78.4 % REM Latency: 192.0 minutes REM Latency (minus Wake time): 167.5 minutes Sleep Onset: 14.5 minutes Stage Results Time (min.) % TST Latency (min.) Wake (after sleep onset): 66.5 - - N1: 30.0 10.2 0.0 N2: 222.0 75.5 12.0 N3: 20.5 7.0 31.5 REM: 21.5 7.3 192.0 Spontaneous Arousals* Total NREM REM Count: 52 49 3 Index (events/hr): 10.6 10.8 8.4 * (EEG Arousal activity not associated with Respiratory or PLM events). Respiratory Events Apneas Central Apnea Obstructive Apnea Mixed Apnea Count: 3 0 0 Index (events/hr.): 0.6 0.0 0.0 Mean Duration (sec.): 11 0 0 Longest Event (sec.): 12.3 0 0 REM Count: 0 0 0 NREM Count: 3 0 0 REM Index: 0.0 0.0 0.0 NREM Index 0.7 0.0 0.0 Supine Index 0.6 0.0 0.0 Non-supine Index 0.0 0.0 0.0 Hypopneas and RERAs Hypopnea 4% desat Hypopnea 3% or arousal RERA Count: 1 17 0 Index (events/hr.): 0.2 3.5 0.0 Mean Duration (sec.): 26.4 20.7 0 Longest Event (sec.): 26.4 30.6 0 REM Count: 1 3 0 NREM Count: 0 14 0 REM Index: 2.8 8.4 0.0 NREM Index: 0.0 3.1 0.0 Supine Count: 1 17 0.0 Non-Supine Count: 0 0 0.0 Supine Index: 0.2 3.5 0.0 Non-supine Index: 0.0 0.0 0.0 Apneas & Hypopneas (by Body-Position) Total Supine Non-Supine Count: 21 21 0 Index (events/hr): 4.3 4.3 0.0 * Results include all hypopneas and apneas. Apneas & Hypopneas (by Body-Position) Total Supine Non-Supine Count: 4 4 0 Index (events/hr): 0.8 0.8 0.0 * Results include only hypopneas with desaturations ? 4% and apneas. RDI (by Body-Position) Total Supine Non-Supine Count: 21 21 0 Index (events/hr): 4.3 4.3 0.0 * Results include all hypopneas, apneas and RERAs. Body Position by Time Non-Supine Supine Sleep (in minutes) 0.5 293.5 REM (in minutes) 0.0 21.5 NREM (in minutes) 0.5 272.0 Periodic Limb Movements(by Sleep Stages) Total PLMs PLMs w/ Arousals Count Index Count Index Total Sleep: 10 2.0 0 0.0 REM: 10 27.9 0 0.0 NREM: 0 0.0 0 0.0 Wake (after Lights Off): 0 0.0 0 0.0 Oxygen Saturation NREM REM TST Mean SaO2%: 91 92 91 Min. SaO2%: 88 88 88 % Time of SaO2 in range Awake NREM REM Total Sleep 90 - 100%: 86 89 95 90 80 - 89%: 0 0 1 0 70 - 79%: 0 0 0 0 60 - 69%: 0 0 0 0 50 - 59%: 0 0 0 0 < 50%: 0 0 0 0 Total duration with SaO2 < 90%: 2.3 28.2 1.0 29.1 Total duration with SaO2 < 89%: 0.4 2.7 0.2 2.9 Total duration with SaO2 < 88%: 0.1 0.0 0.0 0.0 Heart Rate NREM REM TST Mean HR (bpm): 70 0 70 Min. HR (bpm): 51 - 51 Max. HR (bpm): 90 - 90 PLM Body Position documented in this encounter Plan of Treatment Not on file documented as of this encounter Visit Diagnoses Diagnosis SHANELL (obstructive sleep apnea)- Primary Obstructive sleep apnea (adult) (pediatric) documented in this encounter Care Teams Varnish Thinner Relationship Specialty Start Date End Date Agustina Gold MD [address] [place] [address] PCP - General 05/14/10 documented as of this encounter
[2024-02-04 14:01] LABS: ALT 32 U/L (14-59); AST 27 U/L (15-37); Albumin 4.2 g/dL (3.4-5.0); Alkaline Phosphatase 85 U/L (46-116); Anion Gap 10.5 mmol/L (3-11); BUN 9 mg/dL (7-18); Bilirubin, Total 0.48 mg/dL (0.2-1.0); CO2 31.5 mmol/L (21.0-32.0); CREATININE 0.7 mg/dL (0.55-1.02); Calcium 9.8 mg/dL (8.5-10.1); Chloride 92 mmol/L (98-107); Estimated GFR 92.41 (mL/min/1.73m2); Glucose 129 mg/dL (74-106); Lipase 16 U/L (16-77); Potassium 3.8 mmol/L (3.5-5.1); Sodium 134 mmol/L (136-145); Total Protein 7.7 g/dL (6.4-8.2)
[2024-02-04 14:18] LABS: Bilirubin Small (Negative); Blood Trace-intact (Negative); Clarity Clear (Clear); Glucose Negative (Negative); Ketones >=160 mg/dL (Negative); Leukocyte Esterase Small (Negative); Nitrite Negative (Negative); Specific Gravity 1.015 (1.005-1.025); Urobilinogen 0.2 mg/dL (Up to 0.2); pH 8.5 (5-8)
[2024-02-04 14:37] LABS: Bacteria Rare HPF (Negative); C & S Indicated? No; Casts 0-2 Hyaline LPF (Negative); Crystals Negative HPF (Negative); Epithelial Cells Few HPF (Negative); Mucus Negative (Negative); RBC 0-2 HPF (0-2)
[2024-02-04 14:49] LABS: Procalcitonin < 0.1 ng/mL
[2024-02-04] MEDS: Ondansetron O.D.T. 4 MG TABEF, 3 TABS/BTL PO (15:12)
[2024-02-04 15:13] VITALS: BP 130/59; PULSE 77; RESP 12; TEMP 36.2; O2SAT 92
== END 2024-02-04 15:13 | disposition home or self-care (01) ==
PROVIDERS: Emergency Provider Physician Assistant; PCP Family Medicine
DX: R11.2 Nausea with vomiting, unspecified (principal); R80.9 Proteinuria, unspecified; R31.9 Hematuria, unspecified
CPT/HCPCS: 80053; 83690; 84145; 96361; 96374; 99284; 81003; 81015; 83605; 83735; 85025; 87086; J2405

== ENCOUNTER 2024-02-24 00:55 | Outpatient (CLI) | payer MEDICARE, BC, SELFPAY ==
--- NOTE | 2024-02-24 | DI.MAMMO_ITS ---
Exam(s) MAMMO SCREENING EXAM: MAMMO SCREENING CLINICAL HISTORY: Screening, Z12.31 TECHNIQUE: Bilateral full field digital CC and MLO mammographic images were obtained with 3D tomosyn thesis and utilizing computer aided detection (CAD). COMPARISON: Available for comparison. FINDINGS: Masses/Architectural Distortion: None seen. Microcalcifications: No suspicious pleomorphic-type are seen. Skin Thickening/Nipple Retraction: None. IMPRESSION: 1. No significant interval change with no specific features of malignancy noted. 2. Unless there is more urgent need, screening mammography is recommended, as per [employer] guidelines. BI-RADS Category 1 - Negative Breast Density - Category B - Scattered areas of fibroglandular density Breast density category C or D implies that the patient has dense breast tissue. Dense breast tissue is very common and is not abnormal but dense breast tissue can make it harder to find cancer on a ma mmogram. Also, dense breast tissue may increase their breast cancer risk. This information about the result of the mammogram report was provided to the patient to raise their awareness. Use this report when you speak with the patient about their risks for breast cancer, which includes their family hist ory. At that time, you may recommend for more screening tests (Ultrasound or MRI) as they might be us eful based on their risk. A negative radiographic report should not delay biopsy if a dominant or clinically suspicious mass is present. Up to ten percent of cancers are not identified on mammography. A negative report may reinforce clinical impression. Adenosis and dense breasts may obscure an underlying neoplasm. False positive reports average 6 to 10%. Patient will receive a letter notifying them of these results.
== END 2024-02-24 01:15 ==
LOC: DI 00:55
PROVIDERS: PCP Family Medicine; Visit Provider Family Medicine
DX: Z12.31 Encounter for screening mammogram for malignant neoplasm of breast (principal)
CPT/HCPCS: 77063; 77067

== ENCOUNTER 2024-03-03 17:29 | Outpatient (REF) | payer MEDICARE, BC, SELFPAY ==
[2024-03-03 15:17] LABS: ALT 42 U/L (14-59); AST 36 U/L (15-37); Alkaline Phosphatase 70 U/L (46-116); Anion Gap 6.6 mmol/L (3-11); BUN 14 mg/dL (7-18); Bilirubin, Total 0.48 mg/dL (0.2-1.0); CO2 32.4 mmol/L (21.0-32.0); CREATININE 0.9 mg/dL (0.55-1.02); Calcium 8.8 mg/dL (8.5-10.1); Calculated LDL 97 mg/dL (<100); Chloride 99 mmol/L (98-107); Cholesterol 204 mg/dL (<200); Estimated GFR 68.35 (mL/min/1.73m2); Glucose 105 mg/dL (74-106); HDL Cholesterol 55 mg/dL (40-60); Potassium 4.3 mmol/L (3.5-5.1); Sodium 138 mmol/L (136-145); Total Protein 6.6 g/dL (6.4-8.2); Triglyceride 263 mg/dL (<150)
== END 2024-03-03 17:30 | disposition home or self-care (01) ==
LOC: NCHCN 17:29
PROVIDERS: PCP Family Medicine; Visit Provider Family Medicine
DX: I10 Essential (primary) hypertension (principal); M81.0 Age-related osteoporosis without current pathological fracture
CPT/HCPCS: 80053; 80061; 82306

== ENCOUNTER → 2024-03-23 13:46 | Outpatient (BNVA) | payer MEDICARE, BC, SELFPAY | PROVIDERS: PCP Family Medicine; Referring Provider Family Medicine; Visit Provider Nurse Practitioner Family | DX: L60.0 Ingrowing nail (principal); M79.675 Pain in left toe(s) | CPT/HCPCS: 11765 ==

== ENCOUNTER 2024-05-24 15:36 | Outpatient (REF) | payer MEDICARE, BC, SELFPAY ==
--- NOTE | 2024-05-24 15:30 | PAPFT_PTH ---
PATIENT: Virginia Lynne LOC: [facility] U#:[id number] AGE/SX: 73/F ROOM: RE05/24/[address]: Maribell Munoz DO : 1950 BED: DIS: 05/24/2024 SPEC #: [id number] RECD: 05/24/24 17:49 STATUS: PAWAN REQ #: [id number] ABIMBOLA: 05/24/24 15:[address]: Maribell Munoz DEPT: [facility] Cytology RECD BY: Lila Velazquez ENTERED: 05/24/24 17:49 SP TYPE: PAPFT OTHR DR: Courtney Pandya Tissues: 1 - CX/ENDOCX FOR PAP SMEARS Procedures: PAP THIN PREP/UVM Screening HPV DNA PROBE Comments: (HPV 16 & 18/45)
== END 2024-05-24 15:37 | disposition home or self-care (01) ==
LOC: LBN 15:36
PROVIDERS: PCP Family Medicine; Visit Provider Obstetrics & Gynecology
DX: Z12.4 Encounter for screening for malignant neoplasm of cervix (principal); R89.6 Abnormal cytological findings in specimens from other organs, systems and tissues
CPT/HCPCS: 88142; 87624

== ENCOUNTER 2024-06-09 14:39 | Outpatient (REF) | payer MEDICARE, BC, SELFPAY ==
--- NOTE | 2024-06-09 13:00 | VAG_PTH ---
PATIENT: Virginia Lynne LOC: N U#:[id number] AGE/SX: 73/F ROOM: RE06/09/[address]: Maribell Munoz DO : 1950 BED: DIS: 06/09/2024 SPEC #: [id number] RECD: 06/09/24 17:02 STATUS: PAWAN RE #: [id number] ABIMBOLA: 06/09/24 13:[address]: Maribell Munoz DEPT: Surgical Specimen RECD BY: Lila Velazquez ENTERED: 06/09/24 17:03 SP TYPE: VAG OTHR DR: Courtney Pandya Tissues: 1 - VAGINAL BIOPSY Procedures: GROSS AND MICRO LEVEL 4 Comments: [id number]
== END 2024-06-09 14:40 | disposition home or self-care (01) ==
LOC: LBN 14:39
PROVIDERS: PCP Family Medicine; Visit Provider Obstetrics & Gynecology
DX: L91.8 Other hypertrophic disorders of the skin (principal)
CPT/HCPCS: 88305

== ENCOUNTER 2024-06-09 17:00 | Outpatient (REF) | payer MEDICARE, BC, SELFPAY ==
--- OUTSIDE RECORDS SUMMARY | 2024-06-09 17:02 | XMS_ITS | Encounter Summary ---
Author Organization [facility] Address [address] [place] [address] Care Team Providers Care Quality Assurance Group Leader Name Role Phone Agustina Gold MD Primary Care Provider [phone] Encounter Details Date Type Department Care Team (Late st Contact Info) Description 05/25/[address] [facility] Pathology & Laboratory Medicine - [facility] [address] [place] [address] Maribell Munoz [address] [place] [address] [place] [address] Encounter for other general examination Social History Tobacco Use Types Packs/Day Years Used Date Smoking Tobacco: Never Assessed Interpersonal Safety Answer Date Record ed Physically Hurt Never 03/18/2020 Verbally Threaten Not on file 03/18/2020 Comments Unknown Sex and Gender Information Value Date Recorded Sex Assigned at Not on file Legal Sex Female 18:40 EST Gender Identity Not on file Sexual Orientation Not on file documented as of this encounter Plan of Treatment Not on file documented as of this encounter Procedures Procedure Name Priority Date/Time Associated Diagnosis Comments PAP TEST Today 05/24/2024 15:30 EST Encounter for other general examination HUMAN PAPILLOMAVIRUS (HPV) VAGINAL DETECTION WITH GENOTYPING FOR HIGH-RISK TYPES BY PCR Today 05/24/2024 15:30 EST Encounter for other general examination documented in this encounter Results * HUMAN PAPILLOMAVIRUS (HPV) VAGINAL DETECTION WITH GENOTYPING FOR HIGH-RISK TYPES BY PCR (5:30 EST) HPV High Risk Type 16, PCR Negative Negative 05/30/2024 11:26 [facility] HPV High Risk type 18, PCR Negative Negative 05/30/2024 11:26 [facility] HPV other High Risk types, PCR Negative Negative 05/30/2024 11:26 [facility] Comment: The following Other High Risk HPV types were not detected: 31, 33, 35, 39, 45, 51, 52, 56, 58, 59, 66, and 68 ADDITIONAL INFORMATION Testing was performed using the stacy HPV assay ([employer] This report is intended for use in clinical monitoring and management of patients. ??It is not intended for use in medical-legal applications. This test has been modified from the digital engineer's instructions. ??Its performance characteristics were determined by [facility] in a manner consistent with CLIA requirements. ??This test has not been cleared or approved by the U.S. Food and Drug Administration. Test Performed by: [place] [address] General Manager Farm: Gabriel Patel Ph.D.; CLIA# [id number] Pap Test VAGINAL STRUCTURE / Unknown 05/24/2024 15:30 EST 05/27/2024 11:44 EST Maribell uMnoz MICROBIOLOGY - GENERAL ORDERABLE S Final Result [facility] [address] [place] [address] * PAP TEST (05/24/2024 15:30 EST) Specimens A. Vagina , ThinPrep Imaging System with Manual Evaluation 05/30/2024 12:29 [facility] Specimen Adequacy Satisfactory for Evaluation - assessment of transformation zone component not applicable ( e.g. atrophy, vaginal sample, hysterectomy) Scant squamous epithelial component due to excess inflammation. 05/30/2024 12:29 [facility] General Categorization Negative for intraepithelial lesion or malignancy 05/30/2024 12:29 [facility] Descriptive Diagnosis Reactive cellular changes associated with inflammation present (includes repair). 05/30/2024 12:29 [facility] Attestation By the signature below, the attending physician certifies that they have personally conducted a gross and/or microscopic examination of the described specimens and rendered or confirmed the above diagnosis. 05/30/2024 12:29 [facility] at 1229 Clinical History See below 05/30/20 12:29 [facility] Performing Lab [facility] 05/30/2024 12:29 [facility] Scanned Images 05/30/2024 12:29 [facility] HPV High Risk type 16, PCR Negative 05/30/2024 12:29 [facility] HPV High Risk type 18, PCR Negative 05/30/2024 12:29 [facility] HPV Other High Risk Types, PCR Negative The following Other High Risk HPV types were not detected: 31, 33, 35, 39, 45, 51, 52, 56, 58, 59, 66, and 68 --ADDITIONAL INFORMATION------ Testing was performed using the stacy HPV assay ([employer] This report is intended for use in clinical monitoring and management of patients. It is not intended for use in medical-legal applications. This test has been modified from the digital engineer's instructions. Its performance characteristics were determined by [facility] in a manner consistent with CLIA requirements. This test has not been cleared or approved by the U.S. Food and Drug Administration. Test Performed by: [place] [address] General Manager Farm: Gabriel Patel Ph.D.; CLIA# [id number] 05/30/2024 12:29 [facility] Pap Test VAGINAL STRUCTURE / Unknown 05/24/2024 15:30 EST 05/25/2024 11:08 EST Maribell Alexander PATHOLOGY ORDERABLES Final Resul t [facility] [address] [place] [address] documented in this encounter Visit Diagnoses Diagnosis Encounter for other general examination documented in this encounter Care Teams Quality Assurance Group Leader Relationship Specialty Start Date End Date Agustina Gold MD [address] [place] [address] [place] [address] PCP - General 03/25/14 documented as of this encounter
--- OUTSIDE RECORDS SUMMARY | 2024-06-09 17:02 | XMS_ITS | Encounter Summary ---
Author Organization [facility] Address [address] [place] [address] Care Team Providers Care Lubrication Servicer Name Role Phone Agustina Gold MD Primary Care Provider [phone] Encounter Details Date Type Department Care Team (Late st Contact Info) Description 08/21/2020 Lab Requisition [facility] Pathology & Laboratory Medicine - [facility] [address] [place] [address] Virginia Jimenez MD [address] [place] [id number] Contact with and (suspected) exposure to [...] 21:30 EST Virginia Jimenez MD MICROBIOLOGY - GENERAL ORDER HARRIETT Final Result [facility] [address] [place] [address] * COVID-19 TESTING (08/21/2020 13:20 EST) COVID-19 rt-PCR Result Negative Negative 08/22/2020 13:50 EST [facility] Comment: This test has [...] performed using the stacy SARS-CoV-2 assay ([employer] on the Stacy 6800 System Performing Lab Stacy [address] [facility] 08/22/2020 13:50 EST [facility] Swab NASAL / Unknown 08/21/2020 1 3:20 EST 08/21/2020 21:30 EST Virginia Jimenez MD MICROBIOLOGY - GENERAL ORDER HARRIETT Final Result [facility] [address] [place] [address] documented in this encounter Visit Diagnoses Diagnosis Contact with and (suspected) exposure to other viral communicable diseases documented in this encounter Care Teams Lubrication Servicer Relationship Specialty Start Date End Date Agustina Gold MD NPI: [id number] [place] [address] [address] [place] [address] PCP - General 03/25/14 documented as of this encounter
--- OUTSIDE RECORDS SUMMARY | 2024-06-09 17:02 | XMS_ITS | Clinical Summary ---
Author Organization [facility] Address [address] [place] [address] Care Team Providers Care Supervisor Drying And Winding Name Role Phone Agustina Gold MD Primary Care Provider [phone] Allergies No known active allergies Medications DULOXETINE HCL (CYMBALTA ORAL) Take by mouth. Active SIMVASTATIN (ZOCOR ORAL) Take by mouth. Active OXYCODONE HCL (OXYCONTIN ORAL) Take by mouth. Active LEVOTHYROXINE SODIUM (SYNTHROID ORAL) Take by mouth. Active Encounters Date Type Department Care Team Description 05/25/2024 Lab Requisition [facility] Pathology & Laboratory Medicine - [facility] [address] [place] [address] Maribell Munoz Encounter for other general examination from Last 3 Months Social History Tobacco Use Types Packs/Day Years [...] Last Done Comments Hepatitis C Screen 1950 Fall Risk Screening 2017 COVID-19 Vaccine (2023-25 season) 2024 RSV Immunization ( o r 60+ Years) (1 - 1-dose 75+ series) 2027 Procedures Procedure Name Priority Date/Time Associated Diagnosis Comments PAP TEST Today 05/24/2024 15:30 EST Encounter for other general examination HUMAN PAPILLOMAVIRUS (HPV) VAGINAL DETECTION WITH GENOTYPING FOR HIGH-RISK TYPES BY PCR Today 05/24/2024 15:30 EST Encounter for other general examination from Last 3 Months Results * PAP TEST (05/24/2024 15:30 EST) Specimens A. Vagina , ThinPrep Imaging System with Manual Evaluation 05/30/2024 12:29 [facility] Specimen Adequacy Satisfactory for Evaluation - assessment of transformation zone component not applicable ( e.g. atrophy, vaginal sample, hysterectomy) Scant squamous epithelial component due to excess inflammation. 05/30/2024 12:29 [facility] General Categorization Negative for intraepithelial lesion or malignancy 05/30/2024 12:29 [facility] Descriptive Diagnosis Reactive cellular changes associated with inflammation present (includes repair). 05/30/2024 12:29 [facility] Attestation By the signature below, the attending physician certifies that they have personally conducted a gross and/or microscopic examination of the described specimens and rendered or confirmed the above diagnosis. 05/30/2024 12:29 [facility] at 1229 Clinical History See below 05/30/20 12:29 [facility] Performing Lab [facility] 05/30/2024 12:29 [facility] Scanned Images 05/30/2024 12:29 [facility] HPV High Risk type 16, PCR Negative 05/30/2024 12:29 [facility] HPV High Risk type 18, PCR Negative 05/30/2024 12:29 [facility] HPV Other High Risk Types, PCR Negative The following Other High Risk HPV types were not detected: 31, 33, 35, 39, 45, 51, 52, 56, 58, 59, 66, and 68 --ADDITIONAL INFORMATION------ Testing was performed using the stacy HPV assay ([employer] This report is intended for use in clinical monitoring and management of patients. It is not intended for use in medical-legal applications. This test has been modified from the division plant engineer's instructions. Its performance characteristics were determined by [facility] in a manner consistent with CLIA requirements. This test has not been cleared or approved by the U.S. Food and Drug Administration. Test Performed by: [facility] [place] [address] Email Marketing Manager: Gabriel aPtel Ph.D.; CLIA# [id number] 05/30/2024 12:29 EST [facility] Pap Test VAGINAL STRUCTURE / Unknown 05/24/2024 15:30 EST 05/25/2024 11:08 EST [facility] PATHOLOGY ORDERABLES Final Resul t Performing Organization Address City/State/[facility] Co de Phone Number [facility] [address] [place] [address] * HUMAN PAPILLOMAVIRUS (HPV) VAGINAL DETECTION WITH GENOTYPING FOR HIGH-RISK TYPES BY PCR (5:30 EST) HPV High Risk Type 16, PCR Negative Negative 05/30/2024 11:26 EST [facility] HPV High Risk type 18, PCR Negative Negative 05/30/2024 11:26 EST [facility] HPV other High Risk types, PCR Negative Negative 05/30/2024 11:26 EST [facility] Comment: The following Other High Risk HPV types were not detected: 31, 33, 35, 39, 45, 51, 52, 56, 58, 59, 66, and 68 ADDITIONAL INFORMATION Testing was performed using the stacy HPV assay ([employer]ores [employer] This report is intended for use in clinical monitoring and management of patients. ??It is not intended for use in medical-legal applications. This test has been modified from the division plant engineer's instructions. ??Its performance characteristics were determined by [facility] in a manner consistent with CLIA requirements. ??This test has not been cleared or approved by the U.S. Food and Drug Administration. Test Performed by: [facility] [address] [place] [address] Email Marketing Manager: Gabriel Patel Ph.D.; CLIA# [id number] Pap Test VAGINAL STRUCTURE / Unknown 05/24/2024 15:30 EST 05/27/2024 11:44 EST Maribell Munoz MICROBIOLOGY - GENERAL ORDERABLE S Final Result [facility] [address] [place] [address] from Last 3 Months Insurance MEDICARE ACO [place] [facility] Care Teams Supervisor Drying And Winding Relationship Specialty Start Date End Date Agustina Gold MD [address] [place] [address] [address] [place], [place] [address] PCP - General 03/25/14
--- OUTSIDE RECORDS SUMMARY | 2024-06-09 17:02 | XMS_ITS | Referral Summary ---
Author Organization [facility] Address [address] [place] [address] Care Team Providers Care Returns Clerk Name Role Phone Agustina Gold MD Primary Care Provider [phone] Encounters Date Type Department Care Team Description 05/25/2024 Lab Requisition [facility] Pathology & Laboratory Medicine - [facility] [address] [place] [address] Maribell Munoz Encounter for other general examination from Last 3 Months Allergies No known active allergies Medications DULOXETINE HCL (CYMBALTA ORAL) Take by mouth. Active SIMVASTATIN (ZOCOR ORAL) Take by mouth. Active OXYCODONE HCL (OXYCONTIN ORAL) Take by mouth. Active LEVOTHYROXINE SODIUM (SYNTHROID ORAL) Take by mouth. Active Social History Tobacco Use Types Packs/Day Years [...] - Plan of Treatment Not on file Procedures Procedure Name Priority Date/Time Associated Diagnosis Comments PAP TEST Today 05/24/2024 15:30 EST Encounter for other general examination HUMAN PAPILLOMAVIRUS (HPV) VAGINAL DETECTION WITH GENOTYPING FOR HIGH-RISK TYPES BY PCR Today 05/24/2024 15:30 EST Encounter for other general examination from Last 3 Months Results * PAP TEST (05/24/2024 15:30 EST) Specimens A. Vagina , ThinPrep Imaging System with Manual Evaluation 05/30/2024 12:29 [facility] Specimen Adequacy Satisfactory for Evaluation - assessment of transformation zone component not applicable ( e.g. atrophy, vaginal sample, hysterectomy) Scant squamous epithelial component due to excess inflammation. 05/30/2024 12:29 [facility] General Categorization Negative for intraepithelial lesion or malignancy 05/30/2024 12:29 [facility] Descriptive Diagnosis Reactive cellular changes associated with inflammation present (includes repair). 05/30/2024 12:29 [facility] Attestation By the signature below, the attending physician certifies that they have personally conducted a gross and/or microscopic examination of the described specimens and rendered or confirmed the above diagnosis. 05/30/2024 12:29 [facility] at 1229 Clinical History See below 05/30/20 12:29 [facility] Performing Lab [facility] 05/30/2024 12:29 [facility] Scanned Images 05/30/2024 12:29 [facility] HPV High Risk type 16, PCR Negative 05/30/2024 12:29 [facility] HPV High Risk type 18, PCR Negative 05/30/2024 12:29 [facility] HPV Other High Risk Types, PCR Negative The following Other High Risk HPV types were not detected: 31, 33, 35, 39, 45, 51, 52, 56, 58, 59, 66, and 68 --ADDITIONAL INFORMATION------ Testing was performed using the stacy HPV assay (Delores [employer] This report is intended for use in clinical monitoring and management of patients. It is not intended for use in medical-legal applications. This test has been modified from the sped teacher's instructions. Its performance characteristics were determined by [facility] in a manner consistent with CLIA requirements. This test has not been cleared or approved by the U.S. Food and Drug Administration. Test Performed by: [facility] - [address] [address] Onion Tier: Gabriel Patel Ph.D.; CLIA# [id number] 05/30/2024 12:29 EST [facility] Pap Test VAGINAL STRUCTURE / Unknown 05/24/2024 15:30 EST 05/25/2024 11:08 EST [employer] PATHOLOGY ORDERABLES Final Resul t [facility] [address] [place] [address] * HUMAN PAPILLOMAVIRUS (HPV) VAGINAL DETECTION WITH GENOTYPING FOR HIGH-RISK TYPES BY PCR (5:30 EST) HPV High Risk Type 16, PCR Negative Negative 05/30/2024 11:26 EST [facility] HPV High Risk type 18, PCR Negative Negative 05/30/2024 11:26 EST [facility] HPV other High Risk types, PCR Negative Negative 05/30/2024 11:26 EST [facility] Comment: The following Other High Risk HPV types were not detected: 31, 33, 35, 39, 45, 51, 52, 56, 58, 59, 66, and 68 ADDITIONAL INFORMATION Testing was performed using the stacy HPV assay ([employer] This report is intended for use in clinical monitoring and management of patients. ??It is not intended for use in medical-legal applications. This test has been modified from the sped teacher's instructions. ??Its performance characteristics were determined by [facility] in a manner consistent with CLIA requirements. ??This test has not been cleared or approved by the U.S. Food and Drug Administration. Test Performed by: [facility] [address] [place] [address] Onion Tier: Gabriel Patel Ph.D.; CLIA# [id number] Pap Test VAGINAL STRUCTURE / Unknown 05/24/2024 15:30 EST 05/27/2024 11:44 EST [facility] MICROBIOLOGY - GENERAL ORDERABLE S Final Result [facility] [address] [place] [address] from Last 3 Months Insurance MEDICARE ACO [facility] Address: [facility] [address] [place] [address] Care Teams Returns Clerk Relationship Specialty Start Date End Date Agustina Gold MD [address] [place] [address] [address], [place] [address] PCP - General 03/25/14
--- OUTSIDE RECORDS SUMMARY | 2024-06-09 17:02 | XMS_ITS | Encounter Summary ---
Author Organization [facility] Address [address] [place] [address] Care Team Providers Care Braid Pattern Setter Name Role Phone Agustina Gold MD Primary Care Provider [phone] Encounter Details Date Type Department Care Team (Late st Contact Info) Description 08/28/2020 Lab Requisition [facility] Pathology & Laboratory Medicine - [facility] [address] [place] [address] Virginia Jimenez MD [address] [place] [phone] Contact with and (suspected) exposure to [...] 08/28/2020 9 :30 EST 08/28/2020 21:04 EST us Virginia Jimenez MD MICROBIOLOGY - GENERAL ORDER HARRIETT Final Result [facility] [address] [place] [address] * COVID-19 TESTING (08/28/2020 9:30 EST) COVID-19 rt-PCR Result Negative Negative 08/29/2020 11:28 EST [facility] Comment: This test [...] performed using the stacy SARS-CoV-2 assay ([employer]ores [employer] on the Stacy 6800 System Performing Lab [facility] [address] [facility] 08/29/2020 11:28 EST [facility] Swab NASAL / Unknown 08/28/2020 9 :30 EST 08/28/2020 21:04 EST Virginia Jimenez MD MICROBIOLOGY - GENERAL ORDER HARRIETT Final Result [facility] [address] [place] [address] documented in this encounter Visit Diagnoses Diagnosis Contact with and (suspected) exposure to covid-19 documented in this encounter Care Teams Braid Pattern Setter Relationship Specialty Start Date End Date Agustina Gold MD [address] [place] [address] [address] [place] [address] PCP - General 03/25/14 documented as of this encounter
--- OUTSIDE RECORDS SUMMARY | 2024-06-09 17:02 | XMS_ITS | Encounter Summary ---
Author Organization [facility] Address [address] [place] [address] Care Team Providers Care House Supervisor Name Role Phone Agustina Gold MD Primary Care Provider [phone] Encounter Details Date Type Department Care Team (Late st Contact Info) Description 08/08/2020 Lab Requisition [facility] Pathology & Laboratory Medicine - [facility] [address] [place] [address] Virginia Jimenez MD [address] [place] [address] [phone] Contact with and (suspected) exposure to other [...] 20:21 EST Virginia Jimenez MD MICROBIOLOGY - GENERAL ORDER HARRIETT Final Result [facility] [address] [place] [address] * COVID-19 TESTING (08/07/2020 13:09 EST) COVID-19 rt-PCR Result Negative Negative 2020 14:57 EST [facility] Comment: This test [...] developed and its performance characteristics determined by [facility]. It has not been cleared or [...] This test is based on the [facility] COVID-19 Emergency Use Authorization (EUA) assay, with minor modification as defined by the FDA Performed on the VeedMe 7 Flex RT-PCR System. Performing Lab [facility] 2020 14:57 EST [facility] Swab NASAL / Unknown 08/07/2020 1 3:09 EST 08/08/2020 20:21 EST us Virginia Jimenez MD MICROBIOLOGY - GENERAL ORDER HARRIETT Final Result [facility] [address] [place] [address] documented in this encounter Visit Diagnoses Diagnosis Contact with and (suspected) exposure to other viral communicable diseases documented in this encounter Care Teams House Supervisor Relationship Specialty Start Date End Date Agustina Gold MD [address] [place] [address] [address] [place], [place] [id number] PCP - General 03/25/14 documented as of this encounter
--- OUTSIDE RECORDS SUMMARY | 2024-06-09 17:03 | XMS_ITS | Encounter Summary ---
Author Organization [facility] Address [address] [place] [address] Care Team Providers Care Tree Marker Name Role Phone Agustina Gold MD Primary Care Provider [phone] Encounter Details Date Type Department Care Team (Late st Contact Info) Description 06/26/2020 Lab Requisition [facility] Pathology & Laboratory Medicine - [facility] [address] [place] [address] Virginia Jimenez MD [address] [place] [phone] Contact with and (suspected) exposure to [...] COVID-19 rt-PCR Result NEGATIVE Negative 06/27/2020 20:36 [facility] Comment: 2019-novel Coronavirus (2019-nCoV) not [...] in accordance with CLIA regulations, College of [employer] (CAP) guidelines (Sep 08, 2019), and FDA guidance (Aug 20, 2019). This test is only for use under the Food and Drug Administration's Emergency Use Authorization. Swab ENTIRE NASOPHARYNX / Unknown Swab / Unknown 06/26/2020 13:39 EST 06/26/2020 21:09 EST Virginia Jimenez MD MICROBIOLOGY - GENERAL ORDER HARRIETT Final Result [facility] [place], [place] * COVID-19 TESTING (06/26/2020 13:39 EST) COVID-19 rt-PCR Result NEGATIVE Negative 06/27/2020 21:14 EST [facility] Comment: 2019-novel Coronavirus (2019-nCoV) not [...] in accordance with CLIA regulations, College of [employer] (CAP) guidelines (Sep 08, 2019), and FDA guidance (Aug 20, 2019). This test is only for use under the Food and Drug Administration's Emergency Use Authorization. Performing Lab [facility] 06/27/2020 21:14 EST [facility] Swab ENTIRE NASOPHARYNX / Unknown Swab / Unknown 06/26/2020 13:39 EST 06/26/2020 21:09 EST Virginia Jimenez MD MICROBIOLOGY - GENERAL ORDER HARRIETT Final Result [facility] [address] [place] [address] [facility] [place] documented in this encounter Visit Diagnoses Diagnosis Contact with and (suspected) exposure to other viral communicable diseases documented in this encounter Care Teams Tree Marker Relationship Specialty Start Date End Date Agustina Glod MD [address] [place] [address] [place] [address] PCP - General 03/25/14 documented as of this encounter
--- OUTSIDE RECORDS SUMMARY | 2024-06-09 17:03 | XMS_ITS | Encounter Summary ---
Author Organization Counts Include [address] [facility] [address] Care Team Providers Care Pool Table Mechanic Name Role Phone Agustina Gold MD Primary Care Provider [phone] Reason for Referral * Consultation (Routine) - Closed Specialty Diagnoses / Procedures Referred By Contfabiola t Referred To Contact Dental Medical Instrument Cable Fabricator Diagnoses SHANELL (obstructive sleep apnea) Fermin Moreno MD [facility] [place] [address] Dexter Frankel DMD Referral ID Status Reason Start Date Expiration Date V isits Requested Visits Authorized [id number] Closed Consult, Test & Treat 07/10/2011 01/06/2012 1 1 Reason for Visit * Reason Comments Obstructive Sleep Apnea Encounter Details Date Type Department Care Team (Late st Contact Info) Description 07/10/2011 12:50 PM EST Office Visit Sleep Medicine [place] [phone] Fermin Moreno MD SHANELL (obstructive sleep apnea) (Primary Dx) Social [...] (pediatric) documented in this encounter Care Teams Pool Table Mechanic Relationship Specialty Start Date End Date Agustina Gold MD [address] [place] [address] PCP - General 05/14/10 documented as of this encounter
--- OUTSIDE RECORDS SUMMARY | 2024-06-09 17:03 | XMS_ITS | Encounter Summary ---
Author Organization [facility] Address [facility] [place] [address] Care Team Providers Care Community Development Planner Name Role Phone Agustina Sousa MD Primary Care Provider [phone] Reason for Visit * Reason Comments Advice Only [facility]OL[facility] Encounter Details Date Type Department Care Team (Late st Contact Info) Description 12/08/2011 12:45 PM EDT Office Visit Plastic Surgery at [facility] [place] [phone] Jeanne Mcghee MD Breast hypertrophy (Primary Dx) Discharge Disposition: Home [...] Trifold pamphlet on breast reduction from the [employer] 2. Brochure: Breast [...] call our Plastic Surgery Nurse line @ [phone]. We monitor this line Thursday - Thursday [...] little of the time Conservative Therapy Treatments: [facility] CONSERVATIVE THERAPY TREATMENTS 12/08/2011 Physical therapy [...] surgery is best done at a realistic [place] [facility] stable weight. We talked about the outpatient [...] revisions for scarring or asymmetry.) Hendricks or Webb Pattern Incision: More scarring on breast, but [...] this encounter Miscellaneous Notes * Miscellaneous - Prakash, Needle Molder - 12/22/2011 12:33 PM EDT documented in this encounter Plan of Treatment Not on file documented as of this encounter Visit Diagnoses Diagnosis Breast hypertrophy- Primary Hypertrophy of breast documented in this encounter Care Teams Community Development Planner Relationship Specialty Start Date End Date Agustina Sousa MD [address] [place] [address] PCP - General 05/14/10 documented as of this encounter
--- OUTSIDE RECORDS SUMMARY | 2024-06-09 17:03 | XMS_ITS | Encounter Summary ---
Author Organization [facility] [place] [address] Care Team Providers Care Electrostatic Powder Coating Technician Name Role Phone Agustina Gold MD Primary Care Provider [phone] Encounter Details Date Type Department Care Team (Late st Contact Info) Description 02/07/2022 Orders Only [facility] [place] [address] Calixto Fowler PA [facility] [place] [address] Closed compression fracture of body of L1 [...] vertebra documented in this encounter Care Teams Electrostatic Powder Coating Technician Relationship Specialty Start Date End Date Agustina Gold MD [address] [place], [place] [address] PCP - General 05/14/10 documented as of this encounter
--- OUTSIDE RECORDS SUMMARY | 2024-06-09 17:03 | XMS_ITS | Encounter Summary ---
Author Organization [facility] Address [address] [place] [address] Care Team Providers Care Biophysics Teacher Name Role Phone Agustina Gold MD Primary Care Provider Encounter Details Date Type Department Care Team (Late st Contact Info) Description 05/15/2020 Lab Requisition [facility] Pathology & Laboratory Medicine - [facility] [address] [place] [address] Virginia Jimenez MD [address] [place] [phone] Encounter for screening for other viral diseases [...] 20:50 EST Virginia Jimenez MD MICROBIOLOGY - GENERAL ORDER HARRIETT Final Result Performing Organization Address [facility] Co de Phone Number [facility] [address] [place] [address] * COVID-19 TESTING (05/15/2020 12:40 EST) COVID-19 rt-PCR Result Negative Negative 05/16/2020 22:23 EST [facility] Comment: This test has not [...] history, and epidemiological information. Performed on the [employer] Fusion instrument Performing Lab [place] [facility] 05/16/2020 22:23 EST [facility] Swab ENTIRE NASOPHARYNX / Unknown 05/15/2020 12:40 EST 05/15/2020 20:50 EST Virginia Jimenez MD MICROBIOLOGY - GENERAL ORDER HARRIETT Final Result Performing Organization Address City/[facility]/ZIP Co de Phone Number [facility] [address] [place] [address] documented in this encounter Visit Diagnoses Diagnosis Encounter for screening for other viral diseases documented in this encounter Care Teams Biophysics Teacher Relationship Specialty Start Date End Date Agustina Gold MD [address] [place] [address] [address], [place] [address] PCP - General 03/25/14 documented as of this encounter
--- OUTSIDE RECORDS SUMMARY | 2024-06-09 17:03 | XMS_ITS | Encounter Summary ---
Author Organization [facility] Address [address] [place] [address] Care Team Providers Care Greens Or Grounds Superintendent Name Role Phone Agustina Gold MD Primary Care Provider [phone] Encounter Details Date Type Department Care Team (Late st Contact Info) Description 05/30/2020 Lab Requisition [facility] Pathology & Laboratory Medicine - [facility] [address] [place] [address] Virginia Jimenez MD [address] [place] [address] Contact with and (suspected) exposure to [...] 0:40 EST Virginia Jimenez MD MICROBIOLOGY - GENERAL ORDER HARRIETT Final Result Performing Organization Address [facility] Co de Phone Number [facility] [address] [place] [address] * COVID-19 TESTING (05/29/2020 12:34 EST) COVID-19 rt-PCR Result Negative Negative 05/30/2020 14:06 EST [facility] Comment: This test [...] history, and epidemiological information. Performed on the [employer] Fusion instrument Performing Lab [place] [facility] Lab 05/30/2020 14:06 EST [facility] Swab 05/29/2020 12:3 4 EST 05/30/2020 0:40 EST us Virginia Jimenez MD MICROBIOLOGY - GENERAL ORDER HARRIETT Final Result Performing Organization Address City/[facility]/ZIP Co de Phone Number [facility] [address] [place] [address] documented in this encounter Visit Diagnoses Diagnosis Contact with and (suspected) exposure to other viral communicable diseases documented in this encounter Care Teams Greens Or Grounds Superintendent Relationship Specialty Start Date End Date Agustina Gold MD [address] [place] [address] [place] [address] PCP - General 03/25/14 documented as of this encounter
--- OUTSIDE RECORDS SUMMARY | 2024-06-09 17:03 | XMS_ITS | Encounter Summary ---
[facility] Organization [facility] [place] [address] Care Team Providers Care Ham Doctor Name Role Phone Agustina Gold MD Primary Care Provider [phone] Reason for Visit * Reason Comments Post Op Encounter Details Date Type Department Care Team (Late st Contact Info) Description 11/11/2010 11:15 AM EDT Office Visit [place] [phone] Jamaal Ng MD SHANELL (obstructive sleep apnea) (Primary Dx) Discharge [...] Noted ??? Atorvastatin calcium E: TMs pearly loivier and mobile. EAC normal N: Normal mucosa [...] (pediatric) documented in this encounter Care Teams Ham Doctor Relationship Specialty Start Date End Date Agustina Gold MD [address] [place] [address] PCP - General 05/14/10 documented as of this encounter
--- OUTSIDE RECORDS SUMMARY | 2024-06-09 17:03 | XMS_ITS | Encounter Summary ---
Author Organization [facility] Address [address] [place] [address] Care Team Providers Care Chemistry Quality Control Technician Name Role Phone Agustina Gold MD Primary Care Provider [phone] Reason for Visit * Reason Comments Closed Head Injury Pt slipped and fell backwards, striking posterior head. No evidence of injury. Denies other injury. Denies LOC. Not anticoagulated. A&O. Respirations unlabored. Skin warm & dry. NAD. Encounter Details Date Type Department Care Team (Late st Contact Info) Description 03/25/2014 15:32 EDT - 03/25/2014 17:05 EDT Emergency [facility] Emergency Department - Main [place] [address] [place] [address] Ramiro Mohamud, PAWilfrido [address] [place] [address] Emergency, MD Lucía Closed head injury (Primary Dx) Discharge Disposition: Home or Self Care Social History Tobacco Use Types Packs/Day Years Used Date Smoking Tobacco: Never Assessed Comments Unknown Sex and Gender Information Value [...] AFTER YOUR VISIT TO THE EMERGENCY ROOM (INDONESIAN) documented in this encounter Medications at Time of Discharge DULOXETINE HCL (CYMBALTA ORAL) Take by mouth. [...] 16:55 No flowsheet data found. * Lokesh Cook, IVAN - 03/25/2014 1608 EDT + head ache 10 + nausea + dizziness * Naren Recinos, IVAN - 03/25/2014 1536 EDT Chief Complaint Patient [...] may reflect changes made after this encounter. LEVOTHYROXINE SODIUM (SYNTHROID ORAL) Take by mouth. [...] STAT 1655 (Given - Provid er: Lokesh Cook, IVAN) documented in this encounter Orders Medications Ordered That William ht Not Have Been Administered Count Last Ordered Date First Ordered Date acetaminophen (TYLENOL) 500 mg tablet 1 09/2013 ondansetron (ZOFRAN-ODT) 4 m g disintegrating tablet 1 03/25/2014 documented in this encounter Care Teams Chemistry Quality Control Technician Relationship Specialty Start Date End Date Agustina Gold MD [facility] [place] [address] PCP - General 03/25/14 documented as of this encounter
--- OUTSIDE RECORDS SUMMARY | 2024-06-09 17:03 | XMS_ITS | Encounter Summary ---
[place] [address] Care Team Providers Care Foxing Closer Name Role Phone Agustina Gold MD Primary Care Provider [phone] Encounter Details Date Type Department Care Team [...] on filedocumented in this encounter Care Teams Foxing Closer Relationship Specialty Start Date End Date Agustina Gold MD [address] [place] [address] PCP - General 05/14/10 documented as of this encounter
--- OUTSIDE RECORDS SUMMARY | 2024-06-09 17:03 | XMS_ITS | Encounter Summary ---
Author Organization [facility] Address [address] [place] [address] Care Team Providers Care Agricultural Economics Teacher Name Role Phone Agustina Gold MD Primary Care Provider [phone] Encounter Details Date Type Department Care Team (Late st Contact Info) Description 07/10/2020 Lab Requisition [facility] Pathology & Laboratory Medicine - [facility] [address] [place] [address] Virginia Jimenez MD [address] [place] [address] Contact with and (suspected) exposure to [...] 21:02 EST Virginia Jimenez MD MICROBIOLOGY - GENERAL ORDER HARRIETT Final Result Performing Organization Address [facility] Co de Phone Number [facility] [address] [place] [address] * COVID-19 TESTING (07/10/2020 11:29 EST) COVID-19 rt-PCR Result Negative Negative 07/11/2020 14:55 EST [facility] Comment: This test was developed and its performance characteristics determined by [facility]. It has not been cleared or [...] This test is based on the [facility] COVID-19 Emergency Use Authorization (EUA) assay, with minor modification as defined by the FDA Performed on the [employer] RT-PCR System. Negative results do not preclude 2019-nCoV infection and should not be used as the sole basis for treatment or other patient management decisions. Negative results must be combined with clinical observations, patient history, and epidemiological information. Performing Lab [facility] Lab 07/11/2020 14:55 EST [facility] Swab NASAL / Unknown 07/10/2020 1 1:29 EST 07/10/2020 21:02 EST Virginia Jimenez MD MICROBIOLOGY - GENERAL ORDER HARRIETT Final Result Performing Organization Address City/[facility]/ZIP Co de Phone Number [facility] [address] [place] [address] documented in this encounter Visit Diagnoses Diagnosis Contact with and (suspected) exposure to other viral communicable diseases documented in this encounter Care Teams Agricultural Economics Teacher Relationship Specialty Start Date End Date Agustina Gold MD [address] [place] [address] [place] [address] PCP - General 03/25/14 documented as of this encounter
--- OUTSIDE RECORDS SUMMARY | 2024-06-09 17:03 | XMS_ITS | Encounter Summary ---
[place] [address] Care Team Providers Care Curator Of Manuscripts Name Role Phone Agustina Gold MD Primary Care Provider [phone] Reason for Referral * Consultation (Routine) - Closed Specialty Diagnoses / Procedures Referred By Contac t Referred To Contact [facility] Diagnoses Chronic back pain, unspecified back location, unspecified back pain laterality Spine-Back pain/L1 compression fx/MRI 01/24/22 in e-DH/XR prior(ordered by ARB) [facility] Courtney Pandya MD [address] [place] [address] [facility] [place] [address] Referral ID Status Reason Start Date Expiration Date V isits Requested Visits Authorized [id number] Closed Consult, Test & Treat PCP Updated and/or Approved 01/02/2022 01/02/2023 6 6 Encounter Details Date Type Department Care Team (Latest Contact Info) Description 01/02/2022 Transcribe Orders eDH Incoming Referrals [phone] oCurtney Pandya MD [address] [place], [place] [address] Chronic back pain, unspecified back location, unspecified [...] laterality documented in this encounter Care Teams Curator Of Manuscripts Relationship Specialty Start Date End Date Agustina Gold MD [address] [place] [address] PCP - General 05/14/10 documented as of this encounter
--- OUTSIDE RECORDS SUMMARY | 2024-06-09 17:03 | XMS_ITS | Encounter Summary ---
Author Organization [facility] Address [address] [place] [address] Care Team Providers Care Commercial Escrow Officer Name Role Phone Agustina Gold MD Primary Care Provider [phone] Encounter Details Date Type Department Care Team (Late st Contact Info) Description 06/05/2020 Lab Requisition [facility] Pathology & Laboratory Medicine - [facility] [address] [place] [address] Virginia Jimenez MD [address] [place] [address] Encounter for other general examination Social History [...] rt-PCR Result NEGATIVE Negative 06/08/2020 8:45 EST [facility] Comment: 2019-novel Coronavirus (2019-nCoV) [...] with CLIA regulations, [employer] [place] Pathologists (CAP) guidelines (Sep 08, 2019), and FDA guidance (Aug 20, 2019). This test is only for use under the Food and Drug Administration's Emergency Use Authorization. Swab ENTIRE NASOPHARYNX / Unknown Swab / Unknown 06/05/2020 13:35 EST 06/05/2020 21:23 EST Virginia Jimenez MD MICROBIOLOGY - GENERAL ORDER HARRIETT Final Result [facility] [place], [place] * COVID-19 TESTING (06/05/2020 13:35 EST) COVID-19 rt-PCR Result NEGATIVE Negative 06/08/2020 10:[address] [facility] Comment: 2019-novel Coronavirus (2019-nCoV) not detected [...] with CLIA regulations, [employer] [place] Pathologists (CAP) guidelines (Sep 08, 2019), and FDA guidance (Aug 20, 2019). This test is only for use under the Food and Drug Administration's Emergency Use Authorization. Performing Lab [facility] 06/08/2020 10:04 EST [facility] Swab ENTIRE NASOPHARYNX / Unknown Swab / Unknown 06/05/2020 13:35 EST 06/05/2020 21:23 EST Virginia Jimenez MD MICROBIOLOGY - GENERAL ORDER HARRIETT Final Result [facility] [address] [place] [address] [facility] [place], [place] documented in this encounter Visit Diagnoses Diagnosis Encounter for other general examination documented in this encounter Care Teams Commercial Escrow Officer Relationship Specialty Start Date End Date Agustina Gold MD [address] [place] [address] [place] [address] PCP - General 03/25/14 documented as of this encounter
--- OUTSIDE RECORDS SUMMARY | 2024-06-09 17:03 | XMS_ITS | Encounter Summary ---
[facility] [place] [address] Care Team Providers Care Television Director Name Role Phone Agustina Gold MD Primary Care Provider [phone] Encounter Details Date Type Department Care Team (Latest Contact Info) Description 10/04/2010 10:31 AM EDT - 10/05/2010 1:25 PM EDT Hospital Encounter [address] [place] [id number] Antony Ng MD SHANELL (obstructive sleep apnea) Discharge Disposition: Home [...] 101.3 F. IMPORTANT PHONE NUMBERS: ENT Clinic: [phone] ENT Residents Lifter (after 5pm or before 8am): [phone] Driving: No driving while still taking opioid pain medications (wait at least 6- 8 hours since last dose). No driving if you are still sore from surgery as it may limit your ability to react quickly if necessary. Follow up Appointments: Follow-up appointment will be scheduled with Dr. Ng in 4 weeks. Appointment will be mailed to you. Please call [phone] (clinic number for appointments) to confirm date [...] 1:14 PM EDT) Surgical Pathology Report [id number] ? Location: [facility]; [facility]; The signing pathologist has (i) examined the [...] [place] 10/07/10 VAM 10/07/10 Verified by: ? Memoli MD, Vincent A ?Pathologist ?(Electronic Signature) The attending pathologist whose signature appears on this report has reviewed all diagnostic slides and has edited the gross and/or microscopic portion of the report in rendering the final pathologic diagnosis. VILMA SOW 10/04/2010 1:14 PM EDT Antony Ng MD PATHOLOGY/CYTOLO GY ORDERABLES VILMA SOW * SURGICAL PATHOLOGY REPORT (10/04/2010 1:14 PM EDT) Surgical Pathology Report ? [facility] ? Provider: ?? KUMAR, ?Pt. Name: ?? ALLEN LYNNE ?ANTONY ? Acc #: ?[id number] ?Pt. ? Col Date: ?? 10/04/2010 ? /Sex: ?1950,(60 years),Female ? Rec Date: ?? 10/04/2010 ? LOC: ?5WST ? SURGICAL PATHOLOGY ? ---Pathologic Diagnosis--- ? 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 10/07/10 ? VAM ? 10/07/10 Verified by: ? Jarvis Crook MD ? Pathologist ? (Electronic Signature) ? The [...] from all sources in 24 hours., Routine 210 (Given - Provider: Delano Sylvester RN) 0301 [...] Maida Walsh RN)1513 (Given - Provider: Maida Walsh, IVAN)1527 (Given - Provider: Maida Walsh RN) lidocaine-epiNEPHrine [...] Pain, Routine 1844 (Given - Provider: Kaley Naik, IVAN)2108 (Given - Provider: Delano Sylvester, RN)2303 (Given - Provider: Delano Sylvester, RN) 0304 (Given - Provider: Delano Sylvester [...] rs.) documented in this encounter Care Teams Television Director Relationship Specialty Start Date End Date Agustina Gold MD [address] [place] [address] PCP - General 05/14/10 documented as of this encounter
--- OUTSIDE RECORDS SUMMARY | 2024-06-09 17:03 | XMS_ITS | Encounter Summary ---
[place] [address] Care Team Providers Care Forging Press Setter Up Name Role Phone Agustina Gold MD Primary Care Provider [phone] Reason for Referral * Consultation (Routine) - Closed Specialty Diagnoses / Procedures Referred By Contac t Referred To Contact [facility] Diagnoses Chronic back pain, unspecified back location, unspecified back pain laterality Spine-Low back pain/h/o compression fx/MRI 01/2022 in e-DH [facility]B Courtney Pandya MD [address] [place] [address] [facility] [place] [address] Referral ID Status Reason Start Date Expiration Date V isits Requested Visits Authorized [id number] Closed Consult, Test & Treat PCP Updated and/or Approved 03/25/2023 03/25/2024 1 1 Encounter Details Date Type Department Care Team (Latest Contact Info) Description 03/31/2023 Transcribe Orders eDH Incoming Referrals [phone] Courtney Pandya MD [address] [place], [place] [id number] Chronic back pain, unspecified back location, unspecified [...] laterality documented in this encounter Care Teams Forging Press Setter Up Relationship Specialty Start Date End Date Agustina Gold MD [address] [place] [address] PCP - General 05/14/10 documented as of this encounter
--- OUTSIDE RECORDS SUMMARY | 2024-06-09 17:03 | XMS_ITS | Encounter Summary ---
Author Organization [facility] [place] [address] Care Team Providers Care Retail Pharmacy Merchandiser Name Role Phone Agustina Gold MD Primary Care Provider [phone] Reason for Visit * Reason Comments Back Pain * Consultation (Routine) - Closed Specialty Diagnoses / Procedures Referred By Contac t Referred To Contact [facility] Center Diagnoses Chronic back pain, unspecified back location, unspecified back pain laterality Spine-Low back pain/h/o compression fx/MRI 01/2022 in - ARB Courtney Pandya MD [address] [place] [address] [facility] [place] [address] Referral ID Status Reason Start Date Expiration Date V isits Requested Visits Authorized [id number] Closed Consult, Test & Treat PCP Updated and/or Approved 03/25/2023 03/25/2024 1 1 Encounter Details Date Type Department Care Team (Late st Contact Info) Description 06/10/2023 9:00 AM EST Office Visit [place] [address] Calixto Fowler PA [facility] [place] [address] Closed compression fracture of body of L1 [...] the [facility] @ [facility] for evaluation. Chief Complaint: Back pain HPI: [...] sciatica documented in this encounter Care Teams Retail Pharmacy Merchandiser Relationship Specialty Start Date End Date Agustina Gold MD [address] [place] [address] PCP - General 05/14/10 documented as of this encounter
--- OUTSIDE RECORDS SUMMARY | 2024-06-09 17:03 | XMS_ITS | Encounter Summary ---
[place] [address] Care Team Providers Care Customs Inspector Name Role Phone Agustina Gold MD Primary Care Provider [phone] Encounter Details Date Type Department Care Team [...] on filedocumented in this encounter Care Teams Customs Inspector Relationship Specialty Start Date End Date Agustina Gold MD [address] [place] [address] PCP - General 05/14/10 documented as of this encounter
--- OUTSIDE RECORDS SUMMARY | 2024-06-09 17:03 | XMS_ITS | Encounter Summary ---
[place] [address] Care Team Providers Care Paid Intern Name Role Phone Agustina Gold MD Primary Care Provider [phone] Encounter Details Date Type Department Care Team [...] on filedocumented in this encounter Care Teams Paid Intern Relationship Specialty Start Date End Date Agustina Gold MD [address] [place] [address] PCP - General 05/14/10 documented as of this encounter
--- OUTSIDE RECORDS SUMMARY | 2024-06-09 17:03 | XMS_ITS | Encounter Summary ---
Author Organization [facility] [place] [address] Care Team Providers Care Take Off Worker Name Role Phone Agustina Gold MD Primary Care Provider [phone] Encounter Details Date Type Department Care Team (Late st Contact Info) Description 05/12/2023 Telephone [facility] [place] [address] Denise Cohen Social History Tobacco Use Types [...] on filedocumented in this encounter Care Teams Take Off Worker Relationship Specialty Start Date End Date Agustina Gold MD [address] [place] [address] PCP - General 05/14/10 documented as of this encounter
--- OUTSIDE RECORDS SUMMARY | 2024-06-09 17:03 | XMS_ITS | Encounter Summary ---
Author Organization [facility] Address [facility] [place] [address] Care Team Providers Care Production Welder Name Role Phone Agustina Gold MD Primary Care Provider [phone] Encounter Details Date Type Department Care Team (Late st Contact Info) Description 10/04/2010 12:31 PM EDT Anesthesia [place] [address] Dustin Pool MD [facility] [place] [address] Isabel Guillen CRNA [facility] [place] [address] Anesthesia Record Procedure Summary Procedure Name Responsible [...] with patient and spouse. Plan discussed with MOTION PICTURE PHOTOGRAPHER. documented in this encounter Miscellaneous Notes * [...] on filedocumented in this encounter Care Teams Production Welder Relationship Specialty Start Date End Date Agustina Gold MD [address] [place] [address] PCP - General 05/14/10 documented as of this encounter
--- OUTSIDE RECORDS SUMMARY | 2024-06-09 17:03 | XMS_ITS | Encounter Summary ---
Author Organization [facility] [place] [address] Care Team Providers Care Pediatric Dental Assistant Name Role Phone Agustina Gold MD Primary Care Provider [phone] Reason for Visit * Reason Comments Gait Problem Referral Encounter Details Date Type Department Care Team (Late st Contact Info) Description 05/09/2014 12:45 PM EST Office [place] [address] [facility] [place] [address] Abnormality of gait and mobility; Ataxia; Diffuse [...] 1:16 PM EST Movement Disorders Consultation Note [facility] Reason for Consultation It is my pleasure [...] PALATOPHARYNGOPLASTY (UVULOPALATOPHARYNGOPLASTY) performed by ANTONY HEATH at [facility] MAIN OR ??? Cosmetic surgery 1991 Blepharoplasty ??? Genital surg proc, female unlisted 1992 Hysterectomy ??? Cranio/maxillofacial surg unlisted 1973 [place] teeth extraction Current Medications See updated medication [...] feel that we need to proceed with Milli diagnostic genetic testing at this point. I [...] Peggy Thompson D.O. Movement [place] [address] TEL: [phone] FAX: [phone] [email or web address] documented in this encounter Plan of Treatment [...] SEND OUT ORDERAB LES Performing Organization Address City/[facility] Co de Phone Number [facility] * Methylmalonic acid, serum (05/09/2014 2:11 PM EST) Methylmalonic Acid (MAY) 0.17 <=0.40 nmol/mL [facility] Comment: Test Performed by: [place] [address] Functional Director: Joe Lugo M.D. Blood specimen (specimen) 05/09/2014 2:11 PM EST 05/09/2014 4:33 PM EST Narrative Resulting Agency Comment Spec In Lab Peggy Bingham Donna MAJOR LAB SEND OUT ORDERAB LES Performing Organization Address City/[facility]/ZIP Co de Phone Number [facility]ILLEN[facility] * Zinc (05/09/2014 2:11 PM EST) Zinc 0.76 0.66 - 1.10 mcg/mL [facility] Comment: Test Performed by: [address] [address] Functional Director: Joe Lugo M.D. Blood specimen (specimen) 05/09/2014 2:11 PM EST 05/09/2014 2:58 PM EST Narrative Resulting Agency Comment Spec In Lab Peggy Thompson DO LAB SEND OUT ORDERAB LES Performing Organization Address City/[facility] Co de Phone Number [facility] * Vitamin E (05/09/2014 2:11 PM EST) Pathologist [facility] Vitamin E 14.2 5.5 - 17.0 mg/L [facility] Comment: Test Performed by: [facility] [place] [address] Functional Director: Lila Silva, Ph.D. Blood specimen (specimen) 05/09/2014 2:11 PM EST 05/09/2014 3:05 PM EST Narrative Resulting Agency Comment Spec In Lab Peggy Thompson DO LAB SEND OUT ORDERAB LES Performing Organization Address [facility] Phone Number [facility] * Gliadin (Deamidated) Antibodies (05/09/2014 2:11 PM EST) [facility] Gliadin IgG Deamidated (MAY) <10.0 <20.0 (Negative) U [facility] Comment: Test Performed by: [place] [address] Functional Director: Lila Silva, Ph.D. Gliadin IgA Deamidated (MAY) <10.0 <20.0 (Negative) U [facility] Comment: Test Performed by: [place] [address] Functional Director: Lila Silva, Ph.D. Blood specimen (specimen) 05/09/2014 2:11 PM EST 05/09/2014 4:31 PM EST Narrative Resulting Agency Comment Spec In Lab Peggy Thompson DO LAB SEND OUT ORDERAB LES Performing Organization Address City/[facility] Co de Phone Number [facility] * Lyme IgG & IgM Antibody (05/09/2014 2:11 PM EST) Lyme Antibody Neg Neg [facility] Blood specimen (specimen) 05/09/2014 2:11 PM EST 05/10/2014 6:58 AM EST Narrative Resulting Agency Comment Spec In Lab Peggy Thompson DO IMMUNOLOGY ORDERABLE S Performing Organization Address [facility] Co de Phone Number [facility] * (ABNORMAL) MARCIAL (05/09/2014 2:11 PM EST) MARCIAL Pos(A) Neg [facility] Comment: 1:80 Titer seen with Nucleolar pattern. ??Is suggestive of autoantibodies to 4-6 S RNA. ??High titers are a useful marker for scleroderma. Blood specimen (specimen) 05/09/2014 2:11 PM EST 05/10/2014 8:11 AM EST Narrative Resulting Agency Comment Spec In Lab Peggy Thompson DO LAB SEND OUT ORDERAB LES Performing Organization Address [facility] Co de Phone Number [facility] documented in this encounter Visit Diagnoses Diagnosis Abnormality of gait and mobility Abnormality of gait Ataxia Lack of coordination Diffuse pain Generalized pain documented in this encounter Care Teams Pediatric Dental Assistant Relationship Specialty Start Date End Date Agustina Gold MD [address] [place] [address] PCP - General 05/14/10 documented as of this encounter
--- OUTSIDE RECORDS SUMMARY | 2024-06-09 17:03 | XMS_ITS | Encounter Summary ---
Author Organization [facility] [place] [address] Care Team Providers Care Negative Stripper Name Role Phone Agustina Gold MD Primary Care Provider [phone] Reason for Referral * Diagnostic Test (Routine) - Closed Specialty Diagnoses / Procedures Referred By Contac t Referred To Contact Radiology Diagnoses Lumbar spondylosis Closed compression fracture of body of L1 vertebra Procedures MRI Lumbar Spine wo Contrast (Generic) Calixto Fowler PA [facility] [place] [address] [place] [address] Referral ID Status Reason Start Date Expiration Date V isits Requested Visits Authorized [id number] Closed Specialty Service Requested 08/12/2023 02/09/2025 1 1 Reason for Visit * Reason Comments Follow-up F/u back pain Encounter Details Date Type Department Care Team (Late st Contact Info) Description 08/12/2023 11:30 AM EST Office Visit [facility] [place] [address] Calixto Fowler PA [facility] [place] [address] Lumbar spondylosis; Closed compression fracture [...] the Center for [facility] @ [facility] for evaluation. Chief Complaint: Back pain HPI: [...] who have questions please contact the health foster care worker that requested your imaging first. ? Narrative [...] the clinical situation (Reference- Florindavik Et Al, [id number]). Findings: (Prevalence in patients without low back [...] patients who have questions please contactthe health foster care worker that requested your imaging first. Tawanda Gan MD IMG MRI ORDERABLES documented in this encounter Visit Diagnoses Diagnosis Lumbar spondylosis Lumbosacral spondylosis without myelopathy Closed compression fracture of body of L1 vertebra Lumbar spondylosis Lumbosacral spondylosis without myelopathy Closed compression fracture of body of L1 vertebra documented in this encounter Care Teams Negative Stripper Relationship Specialty Start Date End Date Agustina Gold MD [address] [place] [address] PCP - General 05/14/10 documented as of this encounter
--- OUTSIDE RECORDS SUMMARY | 2024-06-09 17:03 | XMS_ITS | Encounter Summary ---
Author Organization [facility] Address [address] [place] [address] Care Team Providers Care Group Director Name Role Phone Agustina Gold MD Primary Care Provider [phone] Encounter Details Date Type Department Care Team (Late st Contact Info) Description 03/07/2020 Lab Requisition [facility] Pathology & Laboratory Medicine - [facility] [address] [place], [place] [address] Outr Resulting Lab, Provider Social History Tobacco [...] rt-PCR Result NEGATIVE Negative 03/08/2020 13:18 EDT [facility] Comment: 2019-novel Coronavirus (2019-nCoV) [...] in accordance with CLIA regulations, College of [place] (CAP) guidelines (Sep 08, 2019), and FDA guidance (Aug 20, 2019). This test is only for use under the Food and Drug Administration's Emergency Use Authorization. Swab ENTIRE NASOPHARYNX / Unknown 03/07/2020 9:52 EDT 03/07/2020 16:53 EDT us Provider Outr Resulting Lab MICROBIOLOGY - GENER AL ORDERABLES Final Result [facility] [place], [place] * COVID-19 TESTING (03/07/2020 9:52 EDT) COVID-19 rt-PCR Result NEGATIVE Negative 03/08/2020 14:21 EDT [facility] Comment: 2019-novel Coronavirus (2019-nCoV) not detected [...] in accordance with CLIA regulations, College of [place] Pathologists (CAP) guidelines (Sep 08, 2019), and FDA guidance (Aug 20, 2019). This test is only for use under the Food and Drug Administration's Emergency Use Authorization. Performing Lab [facility] 03/08/2020 14:21 EDT [facility] Swab 03/07/2020 9:52 EDT 03/07/2020 16:53 EDT us Provider Outr Resulting Lab MICROBIOLOGY - GENER AL ORDERABLES Final Result [facility] [address] [place] [address] [facility] [place] documented in this encounter Visit Diagnoses Not on filedocumented in this encounter Care Teams Group Director Relationship Specialty Start Date End Date Agustina Gold MD [address] [place] [address] [place] [address] PCP - General 03/25/14 documented as of this encounter
--- OUTSIDE RECORDS SUMMARY | 2024-06-09 17:03 | XMS_ITS | Encounter Summary ---
Author Organization [facility] Address [address] [place] [address] Care Team Providers Care Oncology Nurse Navigator Name Role Phone Agustina Gold MD Primary Care Provider [phone] Encounter Details Date Type Department Care Team (Late st Contact Info) Description 06/19/2020 Lab Requisition [facility] Pathology & Laboratory Medicine - [facility] [address] [place] [address] Virginia Jimenez MD [address] [place] [address] Contact with and (suspected) exposure to [...] COVID-19 rt-PCR Result NEGATIVE Negative 06/20/2020 17:18 [facility] Comment: 2019-novel Coronavirus (2019-nCoV) not [...] in accordance with CLIA regulations, College of [place] Pathologists (CAP) guidelines (Sep 08, 2019), and FDA guidance (Feb 29th, 2020). This test is only for use under the Food and Drug Administration's Emergency Use Authorization. Swab ENTIRE NASOPHARYNX / Unknown 06/19/2020 13:26 EST 06/19/2020 21:53 EST Virginia Jimenez MD MICROBIOLOGY - GENERAL ORDER HARRIETT Final Result [place], [place] * COVID-19 TESTING (06/19/2020 13:26 EST) COVID-19 rt-PCR Result NEGATIVE Negative 06/20/2020 18:08 EST [facility] Comment: 2019-novel Coronavirus (2019-nCoV) [...] in accordance with CLIA regulations, College of [employer] Pathologists (CAP) guidelines (Sep 08, 2019), and FDA guidance (Aug 20, 2019). This test is only for use under the Food and Drug Administration's Emergency Use Authorization. Performing Lab [facility] 06/20/2020 18:08 EST [facility] Swab ENTIRE NASOPHARYNX / Unknown 06/19/2020 13:26 EST 06/19/2020 21:53 EST us Virginia Jimenez MD MICROBIOLOGY - GENERAL ORDER HARRIETT Final Result [facility] [address] [place] [address] [facility] [place] documented in this encounter Visit Diagnoses Diagnosis Contact with and (suspected) exposure to other viral communicable diseases documented in this encounter Care Teams Oncology Nurse Navigator Relationship Specialty Start Date End Date Agustina Gold MD [address] [place] [address] [place] [address] PCP - General 03/25/14 documented as of this encounter
--- OUTSIDE RECORDS SUMMARY | 2024-06-09 17:03 | XMS_ITS | Encounter Summary ---
Author Organization [facility] [place] [address] Care Team Providers Care Vice President Payer Name Role Phone Agustina Gold MD Primary Care Provider Encounter Details Date Type Department Care Team (Late st Contact Info) Description 07/27/2012 8:00 PM EST Procedure visit Sleep Center at [facility] [address] [place] [address] Jarrett Brar MD [facility] [place] [address] SHANELL (obstructive sleep apnea) (Primary Dx) Social [...] Referring provider (and PCP): Agustina Gold MD ([facility] in [place], [place]) Dentist: Dexter Frankel DMD The study was reviewed and case discussed with Dr. Varghese, who participated in the formulation ofthe above assessment and plan. Study Scoring Results: [facility] DIAGNOSTIC REPORT Patient Name: Virginia Lynne Study Type: PSG (with TAP titration) Sex: Female Study Date: 07/27/2012 Date of : 1950 [facility] #: [id number] Age: 61 Referring Physician: Height: Sleep Specialist: Jarrett Brar MD/ Michael Varghese MD Weight: Recording Tech: B.M.I: Scoring Tech: Blake Del Toro [facility] SCORING TECHNOLOGIST COMMENTS: ECG: NSR Ectopy: None [...] * Results include only hypopneas with desaturations >= 4% and apneas. RDI (by Body-Position) Total [...] (pediatric) documented in this encounter Care Teams Vice President Payer Relationship Specialty Start Date End Date Agustina Gold MD [address] [place] [address] PCP - General 05/14/10 documented as of this encounter
--- OUTSIDE RECORDS SUMMARY | 2024-06-09 17:03 | XMS_ITS | Encounter Summary ---
Author Organization [facility] Address [address] [place] [address] Care Team Providers Care Financial Accounting Manager Name Role Phone Agustina Gold MD Primary Care Provider [phone] Encounter Details Date Type Department Care Team (Late st Contact Info) Description 07/31/2020 Lab Requisition [facility] Pathology & Laboratory Medicine - [facility] [address] [place] [address] Virginia Jimenez MD [address] [place] [address] Contact with and (suspected) exposure to [...] MICROBIOLOGY - GENERAL ORDER HARRIETT Final Result [facility] [address] [place] [address] * COVID-19 TESTING (07/31/2020 13:05 EST) COVID-19 rt-PCR Result Negative Negative 08/01/2020 17:23 EST [facility] Comment: This test [...] testing. This test is based on the [facility] COVID-19 Emergency Use Authorization (EUA) assay, with minor modification as defined by the FDA Performed on the [employer] 7 Flex RT-PCR System. Performing Lab [facility] 08/01/2020 17:23 EST [facility] Swab NASAL / Unknown 07/31/2020 1 3:05 EST 07/31/2020 21:23 EST us Virginia Jimenez MD MICROBIOLOGY - GENERAL ORDER HARRIETT Final Result [facility] [address] [place] [address] documented in this encounter Visit Diagnoses Diagnosis Contact with and (suspected) exposure to other viral communicable diseases documented in this encounter Care Teams Financial Accounting Manager Relationship Specialty Start Date End Date Agustina Gold MD [address] [place] [address] [address] [place], [place] [id number] PCP - General 03/25/14 documented as of this encounter
--- OUTSIDE RECORDS SUMMARY | 2024-06-09 17:03 | XMS_ITS | Encounter Summary ---
Author Organization [facility] Address [facility] [place] [address] Care Team Providers Care Scout Leaser Name Role Phone Agustina Gold MD Primary Care Provider [phone] Reason for Visit * Reason Comments Follow-up Encounter Details Date Type Department Care Team (Late st Contact Info) Description 09/09/2023 2:30 PM EDT Office Visit [place] [address] Calixto Fowler PA [facility] [place] [address] Closed compression fracture of body of L1 [...] the Center for [facility] Sp[facility] @ [facility] for evaluation. Chief Complaint: Follow up [...] this patient's care. Sincerely, Calixto Fowler PA-C [place] [facility] documented in this encounter Plan of Treatment Not on file documented as of this encounter Visit Diagnoses Diagnosis Closed compression fracture of body of L1 vertebra Lumbar spondylosis Lumbosacral spondylosis without myelopathy documented in this encounter Care Teams Scout Leaser Relationship Specialty Start Date End Date Agustina Gold MD [address] [place] [address] PCP - General 05/14/10 documented as of this encounter
--- OUTSIDE RECORDS SUMMARY | 2024-06-09 17:03 | XMS_ITS | Encounter Summary ---
Author Organization [facility] Address [facility] [place] [address] Care Team Providers Care Narrow Gauge Engineer Name Role Phone Agustina Gold MD Primary Care Provider [phone] Encounter Details Date Type Department Care Team (Late st Contact Info) Description 04/20/2021 7:20 PM EDT Telehealth notes only TeleHealth [facility] [place] [address] Telehealth, Neurology None Social History Tobacco Use [...] 04/20/2021 7:20 PM EDT TELENEUROLOGY CONSULT NOTE Sbuuiyxle-ExjldphzaJopu-Owmcfhpzb Date 04/20/21 Patient: Virginia Lynne MRN; [id number] : 1950 Gender:female Requesting Location: [facility] Admitted/Observation: Yes Arrival Date: 04/20/2021 Arrival Time:18.13. [...] 1991 Blepharoplasty ??? CRANIO/MAXILLOFACIAL SURG UNLISTED 1973 [place] teeth extraction ??? GENITAL SURG PROC, FEMALE UNLISTED 1992 Hysterectomy ??? PALATOPHAYNGOPLASTY 10/04/2010 PALATOPHARYNGOPLASTY (UVULOPALATOPHARYNGOPLASTY) performed by ANTONY HEATH at [facility] MAIN OR Patient Conditions: Family History: [...] equally bilaterally. o Coordination: - No ataxia DE Stroke Scale: Yes NIH STROKE SCALE 1A. [...] Observation Skyler Kaplan MD Department of Neurology [facility] documented in this encounter Plan of Treatment Not on file documented as of this encounter Visit Diagnoses Not on filedocumented in this encounter Care Teams Narrow Gauge Engineer Relationship Specialty Start Date End Date Agustina Gold MD [address] [place] [address] PCP - General 05/14/10 documented as of this encounter
--- OUTSIDE RECORDS SUMMARY | 2024-06-09 17:03 | XMS_ITS | Encounter Summary ---
Author Organization [facility] Address [facility] [place] [address] Care Team Providers Care Sleeve Wheel Maker Name Role Phone Agustina Gold MD Primary Care Provider [phone] Encounter Details Date Type Department Care Team (Late st Contact Info) Description 01/24/2022 Ancillary Procedure Radiology Library [facility] [place] [address] Agustina Gold MD [address] [place] [address] Social History Tobacco Use Types Packs/Day Years [...] MR Spine (01/24/2022 12:00 AM EDT) Narrative [facility] - 01/25/2022 3:55 AM EDT This exam is auto-finalizing. It's purpose is for storage only. Agustina Gold MD IMG FILM LIBRARY ORD ERABLES [facility] [place], [place] documented in this encounter Visit Diagnoses Not on filedocumented in this encounter Care Teams Sleeve Wheel Maker Relationship Specialty Start Date End Date Agustina Gold MD [address] [place] [address] PCP - General 05/14/10 documented as of this encounter
--- OUTSIDE RECORDS SUMMARY | 2024-06-09 17:03 | XMS_ITS | Encounter Summary ---
[place] [address] Care Team Providers Care Automatic Oven Operator Name Role Phone Agustina Gold MD Primary Care Provider [phone] Encounter Details Date Type Department Care Team [...] on filedocumented in this encounter Care Teams Automatic Oven Operator Relationship Specialty Start Date End Date Agustina Gold MD [address] [place] [address] PCP - General 05/14/10 documented as of this encounter
--- OUTSIDE RECORDS SUMMARY | 2024-06-09 17:03 | XMS_ITS | Clinical Summary ---
Author Organization [facility] Address [facility] [place] [address] Care Team Providers Care Stone Polisher Machine Name Role Phone Agustina Gold MD Primary Care Provider [phone] Allergies Active Allergy Reactions Criticality Noted Date [...] Next Due Influenza Trivalent w/Preservative 05/06/2010 Pneumococcal 23-Valent Polysaccharide (Pneumovax 23) 10/18/2002 Td Adult (not absorbed) 06/04/2005 Family History Medical History Relation Comments [...] 1950 Sigmoidoscopy 1950 Hepatitis C Screening 1970 Breast Cancer Share Decision Needed 1992 Breast Cancer screening 1992 Zoster vaccine (1 of 2) 2002 Tetanus/Diphtheria/Pertussis Vaccines (1 - Tdap) 06/0506/04/2005 Advance Directive 2007 Bone Density Scan 2017 Pneumoccocal Vaccine: 65+ (2 of 2 - PCV) 2017 10/18/2002 Covid-19 Vaccine (1 - season) 2024 Influenza (Flu) vaccine (1 o f 1 [...] is based on Patients wishes. Care Teams Stone Polisher Machine Relationship Specialty Start Date End Date Agustina Gold MD [address] [place] [address] PCP - General 05/14/10
--- OUTSIDE RECORDS SUMMARY | 2024-06-09 17:03 | XMS_ITS | Encounter Summary ---
Author Organization [facility] Address [address] [place] [address] Care Team Providers Care Tariff Counsel Name Role Phone Agustina Gold MD Primary Care Provider [phone] Encounter Details Date Type Department Care Team (Late st Contact Info) Description 06/12/2020 Lab Requisition [facility] Pathology & Laboratory Medicine - [facility] [address] [place] [address] Virginia Jimenez MD [address] [place] [address] Contact with and (suspected) exposure to [...] COVID-19 rt-PCR Result NEGATIVE Negative 06/13/2020 19:45 [facility] Comment: 2019-novel Coronavirus [...] in accordance with CLIA regulations, [employer] of [place] [employer] (CAP) guidelines (Sep 08, 2019), and FDA guidance (Feb 29th, 2020). This test is only for use under the Food and Drug Administration's Emergency Use Authorization. Swab ENTIRE NASOPHARYNX / Unknown 06/12/2020 12:26 EST 06/12/2020 21:35 EST Virginia Jimenez MD MICROBIOLOGY - GENERAL ORDER HARRIETT Final Result [place], [place] * COVID-19 TESTING (06/12/2020 12:26 EST) COVID-19 rt-PCR Result NEGATIVE Negative 06/13/2020 20:36 EST [facility] Comment: 2019-novel Coronavirus (2019-nCoV) not detected [...] in accordance with CLIA regulations, [employer] of [employer] [employer] (CAP) guidelines (Sep 08, 2019), and FDA guidance (Aug 20, 2019). This test is only for use under the Food and Drug Administration's Emergency Use Authorization. Performing Lab [facility] 06/13/2020 20:36 EST [facility] Swab ENTIRE NASOPHARYNX / Unknown 06/12/2020 12:26 EST 06/12/2020 21:35 EST us Virginia Jimenez MD MICROBIOLOGY - GENERAL ORDER HARRIETT Final Result [facility] [address] [place] [address] [facility] [place], [place] documented in this encounter Visit Diagnoses Diagnosis Contact with and (suspected) exposure to other viral communicable diseases documented in this encounter Care Teams Tariff Counsel Relationship Specialty Start Date End Date Agustina Gold MD [address] [place] [address] [place] [address] PCP - General 03/25/14 documented as of this encounter
--- OUTSIDE RECORDS SUMMARY | 2024-06-09 17:03 | XMS_ITS | Encounter Summary ---
[place] [address] Care Team Providers Care Saw Filer Name Role Phone Agustina Gold MD Primary Care Provider Encounter Details Date Type Department Care Team (Late st Contact Info) Description 09/02/2010 3:00 PM EDT Office [place] [id number] Jamaal Ng MD Thomas, Brian R, MD Discharge Disposition: Home Social History Tobacco Use [...] on filedocumented in this encounter Care Teams Saw Filer Relationship Specialty Start Date End Date Agustina Gold MD [address] [place] [address] PCP - General 05/14/10 documented as of this encounter
--- OUTSIDE RECORDS SUMMARY | 2024-06-09 17:03 | XMS_ITS | Encounter Summary ---
[facility] [place] [address] Care Team Providers Care Mainspring Former Arbor End Name Role Phone Agustina Gold MD Primary Care Provider [phone] Encounter Details Date Type Department Care Team (Late st Contact Info) Description 03/09/2014 Orders Only Radiology [facility] [place] [id number] Agustina Gold MD [address] [place] [address] Social History Tobacco Use Types Packs/Day Years [...] is a Non-reportable exam Agustina Gold MD [facility] [place] FILM LIBRARY ORD ERABLES documented in this encounter Visit Diagnoses Not on filedocumented in this encounter Care Teams Mainspring Former Arbor End Relationship Specialty Start Date End Date Agustina Gold MD [address] [place] [address] PCP - General 05/14/10 documented as of this encounter
--- OUTSIDE RECORDS SUMMARY | 2024-06-09 17:03 | XMS_ITS | Encounter Summary ---
[place] [address] Care Team Providers Care Jewel Lathe Operator Name Role Phone Agustina Gold MD Primary Care Provider [phone] Encounter Details Date Type Department Care Team [...] on filedocumented in this encounter Care Teams Jewel Lathe Operator Relationship Specialty Start Date End Date Agustina Gold MD [address] [place] [address] PCP - General 05/14/10 documented as of this encounter
--- OUTSIDE RECORDS SUMMARY | 2024-06-09 17:03 | XMS_ITS | Encounter Summary ---
[place] [address] Care Team Providers Care Account Executive Healthcare Name Role Phone Agustina Gold MD Primary Care Provider [phone] Reason for Referral * Diagnostic Test (Routine) - Closed Specialty Diagnoses / Procedures Referred By Contac t Referred To Contact Radiology Diagnoses Lumbar spondylosis Closed compression fracture of body of L1 vertebra Procedures MRI Lumbar Spine wo Contrast (Generic) Calixto Fowler PA [facility] [place] [address] [place] [address] Referral ID Status Reason Start Date Expiration Date V isits Requested Visits Authorized [id number] Closed Specialty Service Requested 08/12/2023 02/09/2025 1 1 Reason for Visit * Diagnostic Test (Routine) - Closed Specialty Diagnoses / Procedures Referred By Contac t Referred To Contact Radiology Diagnoses Lumbar spondylosis Closed compression fracture of body of L1 vertebra Procedures MRI Lumbar Spine wo Contrast (Generic) Calixto Fowler PA [facility] [place] [address] [place] [address] Referral ID Status Reason Start Date Expiration Date V isits Requested Visits Authorized [id number] Closed Specialty Service Requested 08/12/2023 02/09/2025 1 1 Encounter Details Date Type Department Care Team (Latest Contact Info) Description 09/02/2023 1:09 PM EDT - 09/02/2023 11:59 PM EDT Hospital Encounter MRI at [facility], [place] [place] [facility] [address] Tawanda Gan MD [facility] [place] [address] Lumbar spondylosis; Closed compression fracture of body [...] who have questions please contact the health rn patient care that requested your imaging first. ? Electronically signed by: Michael Seay MD, [facility] ([phone]), at 09/03/2023 2:06 PM Narrative 09/03/2023 2:06 [...] the clinical situation (Reference- Florindavik Et Al, [id number]). Findings: (Prevalence in patients without low back [...] patients who have questions please contactthe health rn patient care that requested your imaging first. Electronically signed by: Michael Seay MD, [facility]([phone]), at 09/03/2023 2:06 PM Tawanda Gan MD IMG MRI ORDERABLES documented in this encounter Visit Diagnoses Diagnosis Lumbar spondylosis Lumbosacral spondylosis without myelopathy Closed compression fracture of body of L1 vertebra documented in this encounter Care Teams Account Executive Healthcare Relationship Specialty Start Date End Date Agustina Gold MD [address] [place] [address] PCP - General 05/14/10 documented as of this encounter
--- OUTSIDE RECORDS SUMMARY | 2024-06-09 17:03 | XMS_ITS | Encounter Summary ---
Author Organization [facility] Address [address] [place] [address] Care Team Providers Care Search Engine Optimization Consultant Name Role Phone Agustina Gold MD Primary Care Provider [phone] Encounter Details Date Type Department Care Team (Late st Contact Info) Description 07/03/2020 Lab Requisition [facility] Pathology & Laboratory Medicine - [facility] [address] [place] [address] Virginai Jimenez MD [address] [place] [address] Contact with and (suspected) exposure to [...] COVID-19 rt-PCR Result NEGATIVE Negative 07/04/2020 20:[address] [facility] Comment: 2019-novel Coronavirus (2019-nCoV) [...] accordance with CLIA regulations, [employer] of [place] [employer] (CAP) guidelines (Sep 08, 2019), and FDA guidance (Aug 20, 2019). This test is only for use under the Food and Drug Administration's Emergency Use Authorization. Swab NASAL / Unknown Swab / Unknown 07/03/2020 13:15 EST 07/03/2020 22:06 EST Virginia Jimenez MD MICROBIOLOGY - GENERAL ORDER HARRIETT Final Result [place], [place] * COVID-19 TESTING (07/03/2020 13:15 EST) COVID-19 rt-PCR Result NEGATIVE Negative 07/04/2020 21:32 EST [facility] Comment: 2019-novel Coronavirus (2019-nCoV) not [...] accordance with CLIA regulations, [employer] of [place]ologists (CAP) guidelines (Sep 08, 2019), and FDA guidance (Aug 20, 2019). This test is only for use under the Food and Drug Administration's Emergency Use Authorization. Performing Lab [facility] 07/04/2020 21:32 EST [facility] Swab NASAL / Unknown Swab / Unknown 07/03/2020 13:15 EST 07/03/2020 22:06 EST Virginia Jimenez MD MICROBIOLOGY - GENERAL ORDER HARRIETT Final Result [facility] [address] [place] [address] [facility] [place], [place] documented in this encounter Visit Diagnoses Diagnosis Contact with and (suspected) exposure to other viral communicable diseases documented in this encounter Care Teams Search Engine Optimization Consultant Relationship Specialty Start Date End Date Agustina Gold MD [address] [place] [address] [place] [address] PCP - General 03/25/14 documented as of this encounter
--- OUTSIDE RECORDS SUMMARY | 2024-06-09 17:03 | XMS_ITS | Encounter Summary ---
[facility] [place] [address] Care Team Providers Care Labelling Machine Operator Name Role Phone Agustina Gold MD Primary Care Provider Encounter Details Date Type Department Care Team (Latest Contact Info) Description 10/04/2010 12:18 PM EDT - 10/04/2010 2:33 PM EDT Surgery [place] [phone] Antony Ng MD PALATOPHARYNGOPLASTY (UVULOPALATOPHARYNGOPLASTY) (WRVU 9.78) Social History Tobacco [...] 101.3 F. IMPORTANT PHONE NUMBERS: ENT Clinic: [phone] ENT Residents Rejogger (after 5pm or before 8am): [phone] Driving: No driving while still taking opioid pain medications (wait at least 6- 8 hours since last dose). No driving if you are still sore from surgery as it may limit your ability to react quickly if necessary. Follow up Appointments: Follow-up appointment will be scheduled with Dr. Ng in 4 weeks. Appointment will be mailed to you. Please call [phone] (clinic number for appointments) to confirm date [...] the interim. ORALIA DODD 10/05/2010 * Lila Grider, RN - 10/05/2010 11:58 AM EDT 60 [...] 1:14 PM EDT) Surgical Pathology Report [id number] ? Location: [facility]; [address] [place] [address] The signing pathologist has (i) examined the [...] Antony Ng MD PATHOLOGY/CYTOLO GY ORDERABLES [facility] * SURGICAL PATHOLOGY REPORT (10/04/2010 1:14 PM EDT) Surgical Pathology Report ? [facility] ? Provider: ?? KUMAR, ?Pt. Name: ?? ALLEN LYNNE ?ANTONY ? Acc #: ?[id number] ?Pt. ? Col Date: ?? 10/04/2010 ? [...] Maida Walsh RN)1503 (Given - Provider: Maida Walsh, IVAN)1513 (Given - Provider: Maida Walsh RN)1527 (Given [...] Oral, EVERY 4 HOURS PRN, Starting on 10/04/11 at 1752, Until 10/05/10 at 1026, Pain, Routine 1844 (Given - Provider: Kaley Naik RN)2108 (Given - Provider: Delano Sylvester, RN)2303 (Given [...] rs.) documented in this encounter Care Teams Labelling Machine Operator Relationship Specialty Start Date End Date Agustina Gold MD [address] [place] [address] PCP - General 05/14/10 documented as of this encounter
--- OUTSIDE RECORDS SUMMARY | 2024-06-09 17:03 | XMS_ITS | Encounter Summary ---
Author Organization [facility] [place] [address] Care Team Providers Care Senior Contract Specialist Name Role Phone Agustina Gold MD Primary Care Provider [phone] Encounter Details Date Type Department Care Team (Late st Contact Info) Description 06/11/2010 2:05 PM EST [place] [address] Liza Nicolas MD Social History Tobacco Use Types Packs/Day Years Used Date Smoking Tobacco: Never Assessed Sex and Gender Information Value Date Recorded Sex Assigned at Not on file Gender Identity Not on file Sexual Orientation Not on file documented as of this encounter Plan of Treatment Not on file documented as of this encounter Visit Diagnoses Not on filedocumented in this encounter Care Teams Senior Contract Specialist Relationship Specialty Start Date End Date Agustina Gold MD [address] [place] [address] PCP - General 05/14/10 documented as of this encounter
--- OUTSIDE RECORDS SUMMARY | 2024-06-09 17:03 | XMS_ITS | Encounter Summary ---
Author Organization [facility] [place] [address] Care Team Providers Care Box Shook Patcher Name Role Phone Agustina Gold MD Primary Care Provider [phone] Encounter Details Date Type Department Care Team (Late st Contact Info) Description 06/11/2010 2:30 PM EST Follow-[place] [address] Yaya Pascual MD Social History Tobacco Use Types Packs/Day Years Used Date Smoking Tobacco: Never Assessed Sex and Gender Information Value Date Recorded Sex Assigned at Not on file Gender Identity Not on file Sexual Orientation Not on file documented as of this encounter Plan of Treatment Not on file documented as of this encounter Visit Diagnoses Not on filedocumented in this encounter Care Teams Box Shook Patcher Relationship Specialty Start Date End Date Agustina Gold MD [address] [place] [address] PCP - General 05/14/10 documented as of this encounter
--- OUTSIDE RECORDS SUMMARY | 2024-06-09 17:03 | XMS_ITS | Encounter Summary ---
Author Organization [facility] Address [address] [place] [address] Care Team Providers Care Welfare Specialist Name Role Phone Agustina Gold MD Primary Care Provider [phone] Encounter Details Date Type Department Care Team (Late st Contact Info) Description 04/03/2020 Lab Requisition [facility] Pathology & Laboratory Medicine - [facility] [address] [place] [address] Virginia Jimenez MD [address] [place] [id number] Encounter for screening for other viral diseases [...] rt-PCR Result NEGATIVE Negative 04/05/2020 16:09 EDT [facility] Comment: 2019-novel Coronavirus [...] in accordance with CLIA regulations, College of [place] [employer] (CAP) guidelines (Sep 08, 2019), and FDA guidance (Aug 20, 2019). This test is only for use under the Food and Drug Administration's Emergency Use Authorization. Swab ENTIRE NASOPHARYNX / Unknown 04/03/2020 13:30 EDT 04/03/2020 21:49 EDT Virginia Jimenez MD MICROBIOLOGY - GENERAL ORDER HARRIETT Final Result [facility] [place], [place] * COVID-19 TESTING (04/03/2020 13:30 EDT) Pathologist [facility] COVID-19 rt-PCR Result NEGATIVE Negative 04/05/2020 17:16 EDT [facility] Comment: 2019-novel Coronavirus (2019-nCoV) [...] in accordance with CLIA regulations, College of [employer] (CAP) guidelines (Sep 08, 2019), and FDA guidance (Aug 20, 2019). This test is only for use under the Food and Drug Administration's Emergency Use Authorization. Performing Lab [facility] 04/05/2020 17:16 EDT [facility] Swab ENTIRE NASOPHARYNX / Unknown 04/03/2020 13:30 EDT 04/03/2020 21:49 EDT us Virginia Jimenez MD MICROBIOLOGY - GENERAL ORDER HARRIETT Final Result [facility] [address] [place] [address] [facility] [place], [place] documented in this encounter Visit Diagnoses Diagnosis Encounter for screening for other viral diseases documented in this encounter Care Teams Welfare Specialist Relationship Specialty Start Date End Date Agustina Gold MD [address] [place] [address] [place] [address] PCP - General 03/25/14 documented as of this encounter
== END 2024-06-09 17:01 | disposition home or self-care (01) ==
LOC: NCHCN 17:00
PROVIDERS: PCP Family Medicine; Visit Provider Family Medicine
DX: E03.9 Hypothyroidism, unspecified (principal)
CPT/HCPCS: 84443

== ENCOUNTER 2024-08-12 15:38 | Outpatient (REF) | payer MEDICARE, BC, SELFPAY ==
[2024-08-12 22:08] LABS: COMMENT (LAB VIEW ONLY) 78.57 mg/dL; Microalb ug/mg Crea 13.1 ug/mg Cr
== END 2024-08-12 15:39 | disposition home or self-care (01) ==
LOC: NCHCN 15:38
PROVIDERS: PCP Family Medicine; Visit Provider Family Medicine
DX: I10 Essential (primary) hypertension (principal)
CPT/HCPCS: 82043; 82570

== ENCOUNTER 2025-02-28 11:26 | Outpatient (CLI) | payer MEDICARE, BC, SELFPAY ==
[2025-02-28 16:39] LABS: ALT 44 U/L (14-59); AST 48 U/L (15-37); Albumin 4.1 g/dL (3.4-5.0); Alkaline Phosphatase 81 U/L (46-116); Anion Gap 11.9 mmol/L (3-11); BUN 5 mg/dL (7-18); Bilirubin, Total 0.7 mg/dL (0.2-1.0); CO2 29.1 mmol/L (21.0-32.0); Calcium 9.3 mg/dL (8.5-10.1); Calculated LDL 94 mg/dL (<100); Chloride 92 mmol/L (98-107); Cholesterol 177 mg/dL (<200); Estimated GFR 78.24 (mL/min/1.73m2); Glucose 102 mg/dL (74-106); HDL Cholesterol 63 mg/dL (>or=50); Potassium 3.3 mmol/L (3.5-5.1); Sodium 133 mmol/L (136-145); TSH 2.20 uIU/mL (0.36-3.74); Total Protein 7.2 g/dL (6.4-8.2); Triglyceride 102 mg/dL (<150)
== END 2025-02-28 11:27 | disposition home or self-care (01) ==
PROVIDERS: PCP Family Medicine; Visit Provider Family Medicine
DX: I10 Essential (primary) hypertension (principal)
CPT/HCPCS: 36415; 77063; 77067; 80053; 80061; 84443

== ENCOUNTER 2025-02-28 11:30 | Outpatient (CLI) | payer MEDICARE, BC, SELFPAY ==
--- NOTE | 2025-02-28 | DI.MAMMO_ITS ---
Exam(s) MAMMO SCREENING EXAM: MAMMO SCREENING CLINICAL HISTORY: SCREENING MAMMO Z12.31. TECHNIQUE: Bilateral full field digital CC and MLO mammographic images were obtained with 3D tomosynthesis and utilizing computer aided detection (CAD). COMPARISON: Prior mammograms were reviewed. FINDINGS: There has been no significant change in the appearance and distribution of the fibroglandular tissue. There are no CAD designations There are no new spiculated masses nor malignant appearing microcalcification groups. There is no significant architectural distortion nor skin thickening-retraction. IMPRESSION: No radiographic evidence of malignancy. BI-RADS Category 1 - Negative Breast Density - Category B - There are scattered areas of fibroglandular density. Breast density Category C or D implies that the patient has dense breast tissue. Dense breast tissue can make it harder to find cancer on a mammogram. Dense breast tissue is also associated with an increased risk of breast cancer. This information about the result of the mammogram report was provided to the patient to raise their awareness. Use this report when you speak with the patient about their risks for breast cancer, which includes their family history. At that time, you may recommend additional screening tests (Ultrasound or MRI) as these tests may add significant information. A negative radiographic report should not delay biopsy if a dominant or clinically suspicious mass is present. Up to ten percent of cancers are not identified on mammography. A negative report may reinforce clinical impression. Adenosis and dense breasts may obscure an underlying neoplasm. False positive reports average 6 to 10%. Patient will receive a letter notifying them of these results.
== END 2025-02-28 11:50 ==
LOC: DI 11:31
PROVIDERS: PCP Family Medicine; Visit Provider Family Medicine
DX: Z12.31 Encounter for screening mammogram for malignant neoplasm of breast (principal)
CPT/HCPCS: 77063; 77067

== ENCOUNTER 2025-04-14 18:41 | Outpatient (REF) | payer MEDICARE, BC, SELFPAY ==
[2025-04-14 21:02] LABS: ALT 50 U/L (14-59); AST 42 U/L (15-37); Albumin 3.9 g/dL (3.4-5.0); Alkaline Phosphatase 92 U/L (46-116); Anion Gap 7.7 mmol/L (3-11); BUN 8 mg/dL (7-18); Bilirubin, Total 0.6 mg/dL (0.2-1.0); CO2 34.3 mmol/L (21.0-32.0); Calcium 9.1 mg/dL (8.5-10.1); Chloride 91 mmol/L (98-107); Estimated GFR 78.24 (mL/min/1.73m2); Glucose 89 mg/dL (74-106); Potassium 4.1 mmol/L (3.5-5.1); Sodium 133 mmol/L (136-145); Total Protein 6.4 g/dL (6.4-8.2)
== END 2025-04-14 18:42 | disposition home or self-care (01) ==
LOC: NCHCN 18:41
PROVIDERS: PCP Family Medicine; Visit Provider Family Medicine
DX: E87.1 Hypo-osmolality and hyponatremia (principal)
CPT/HCPCS: 80053